=== PATIENT | male | born 1940 | race Caucasian/White ===

== ENCOUNTER → 2016-06-19 | Outpatient (CLI) | payer MEDICARE, OTHER ==
--- NOTE | 2016-06-19 19:02 | MRI ---
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 COMPARISON: None TECHNIQUE: Multiplanar, multi sequence MR images of the head are obtained with and without IV gadolinium contrast using standard imaging protocol. Due to imaging protocol was performed. FINDINGS: The midline structures are not displaced. Sulci are age appropriate. The lateral, third, and fourth ventricles are normal in size, shape, and anatomic positioning. Normal larsen-white differentiation is seen. Normal flow voids are seen in the major intracranial vessels including the dural venous sinuses. There is no evidence of mass, mass effect, hydrocephalus, or acute intracranial hemorrhage. No abnormal extra-axial fluid collections are seen. Mild to moderate mostly confluent and focal scattered areas of increased FLAIR/T2 signal are seen in the periventricular white matter and white matter and centrum semiovale. No diffusion-weighted signal abnormalities are identified. Gradient echo images show no abnormal signal. There is a large heterogeneously enhancing mass in the pituitary fossa measuring 16 mm AP by 28 mm transverse by 11 mm craniocaudal. The pituitary stalk is slightly deviated towards the right. This mass does not obviously contact or displace the optic chiasm or optic nerves. The mass does extend into the cavernous sinus left greater than right. The mass appears somewhat bilobed. Focus of increased signal on T1-weighted sequences in the anterior inferior aspect of the mass could represent displaced neurohypophysis. There is irregular bony thickening of the sphenoid sinus that appears to contain mostly enhancing mucosal tissue and near complete opacification. This likely represents postoperative changes. There is mucosal thickening in most of the ethmoid air cells and right maxillary sinus with evidence of previous surgery to the medial wall of the right maxillary sinus. The visualized orbits and mastoid air cells are unremarkable. IMPRESSION: Postsurgical changes to the sphenoid sinus are seen consistent with patient's history of previous pituitary tumor resection. There is a heterogeneous T2 signal and heterogeneously enhancing mass in the pituitary fossa extending into the cavernous sinuses left greater than right that has the appearance of a pituitary macroadenoma. Recommend correlation with any previous imaging studies if available to determine degree of interval change if any. No involvement of the optic chiasm or optic nerves is appreciated. Subacute chronic sinus disease in the ethmoid and right maxillary sinus are seen. Electronically signed by: Gio Case MD 06/19/2016 7:01 PM CDT
== END | disposition home or self-care (01) ==
LOC: LAB.O 08:46
PROVIDERS: ATTEND Family Medicine
DX: D35.2 Benign neoplasm of pituitary gland (principal)

== ENCOUNTER → 2016-07-10 | Outpatient (CLI) | payer MEDICARE, OTHER | END | disposition home or self-care (01) | LOC: GMAH 10:15 | PROVIDERS: ATTEND Family Medicine | DX: Z12.5 Encounter for screening for malignant neoplasm of prostate (principal); R53.82 Chronic fatigue, unspecified | CPT/HCPCS: 84443; 84550; G0103 ==

== ENCOUNTER → 2017-01-15 | Outpatient (CLI) | payer MEDICARE, OTHER | END | disposition home or self-care (01) | LOC: GMAH 18:02 | PROVIDERS: ATTEND Family Medicine | DX: M25.9 Joint disorder, unspecified (principal); E34.9 Endocrine disorder, unspecified ==

== ENCOUNTER → 2017-07-01 | Outpatient (CLI) | payer MEDICARE, OTHER | END | disposition home or self-care (01) | LOC: GMAH 12:44 | PROVIDERS: ATTEND Family Medicine | DX: Z12.5 Encounter for screening for malignant neoplasm of prostate (principal); R53.82 Chronic fatigue, unspecified; Z13.220 Encounter for screening for lipoid disorders | CPT/HCPCS: 84443; 84550; G0103 ==

== ENCOUNTER → 2018-07-08 | Outpatient (CLI) | payer MEDICARE, OTHER | LOC: GMAH 11:51 | PROVIDERS: ATTEND Family Medicine | DX: Z13.6 Encounter for screening for cardiovascular disorders (principal); Z12.5 Encounter for screening for malignant neoplasm of prostate | CPT/HCPCS: 84443; 84550; G0103 ==

== ENCOUNTER → 2018-07-28 | Outpatient (CLI) | payer MEDICARE, OTHER ==
--- NOTE | 2018-07-29 11:40 | MRI ---
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 TECHNIQUE: Multiplanar multi sequence images of the brain were obtained with and without gadolinium contrast. FINDINGS: No diffusion restriction. There is a fairly uniformly enhancing sellar mass extending into the suprasellar cistern measuring 2.8 cm transverse by 1.9 cm AP by 1.4 cm craniocaudal consistent with recurrent macroadenoma. Mild rightward deviation of the pituitary infundibulum. The optic chiasm is unremarkable. The mass abuts but does not encase the internal carotid artery cavernous segments bilaterally. The corpus callosum and other midline structures are otherwise unremarkable. The ventricles are nondilated. No extra-axial fluid collections. The internal auditory canals and cerebellopontine angles are unremarkable. No posterior fossa lesion. Small areas of increased T2/FLAIR signal involve the periventricular and subcortical white matter in both cerebral hemispheres, nonspecific but likely related to chronic ischemic microvascular disease. No cortical infarct or intracranial mass. Postoperative changes and mild mucoperiosteal thickening in the maxillary sinuses bilaterally. No calvarial lesion. 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 Rightward deviation of the optic chiasm and abutment of the cavernous segments of the ICAs bilaterally without vascular encasement. Electronically signed by: Scottie Reyez MD 07/29/2018 11:38 AM CDT
== END ==
LOC: MRI 14:00
PROVIDERS: ATTEND Family Medicine
DX: D35.2 Benign neoplasm of pituitary gland (principal)

== ENCOUNTER 2018-10-17 12:36 | Emergency (ER) | payer MEDICARE, OTHER ==
[2018-10-17 13:14] VITALS: TEMP 97.3
--- NOTE | 2018-10-17 13:31 | ED.PDOC ---
History of Present Illness - General Chief Complaint: Trauma Stated Complaint: Pt fell and punctured his right leg/calf Time Seen by Provider: 10/17/18 13:12 Source: patient Exam Limitations: no limitations - History of Present Illness Initial Comments: Jonatan David 77 y/o male stated that he was repairing his porch then he tripped on a 2 x 2 wood fell on the bushes and right leg got impaled by the trimmed light on the right leg then noted bleeding.His Tdap immunization UTD-3 years ago.Denies pain on the head,neck,chest,abdomen,hips/pelvis. Occurred: just prior to arrival Severity: moderate Pain Location: lower extremity - right leg Method of Injury: fall Improving Factors: rest Worsening Factors: movement Loss of Consciousness: no loss of consciousness Associated Symptoms (Fall): other - pain right leg Allergies/Adverse Reactions: Allergies Codeine Allergy (Verified 10/17/18 13:14) Metronidazole [From Flagyl] Allergy (Verified 10/17/18 13:14) Tramadol Allergy (Verified 10/17/18 13:14) Home Medications: Ambulatory Orders Misc Natural Hmg Coa Reductase [Cholestin] 2 cap PO DAILY 03/08/16 Shrub [place]-3 Fatty Acids [[place] 3] 1 cap PO DAILY 03/08/16 Omeprazole [PriLOSEC Cap] 20 mg PO DAILY 03/08/16 Probiotic Product [Probiotic] 1 tab PO DAILY 03/08/16 Sertraline HCl [Zoloft] 50 mg PO DAILY 03/08/16 Vitamins A & D [Vitamin A & D] 1 tab PO DAILY 03/08/16 Clindamycin HCl 300 mg PO TID 10 Days #60 cap 10/17/18 Turmeric (Curcuma Longa) [Curcumin 95] 1,300 mg PO DAILY 10/17/18 Review of Systems - Review of Systems Skin: States: see HPI, other - wound All other Systems: Reviewed and Negative, No Change from Baseline Past Medical History (General) - Patient Medical History Hx Stroke: No Hx of COPD: No Hx Cardiac Disorders: No Hx Congestive Heart Failure: No Hx Hypertension: No Hx Diabetes: No Hx Gastroesophageal Reflux: Yes Hx Cancer: Yes - Pituitary Hx MRSA: No Surgical History: cancer surgery, other - resection pituitary adenoma,hernia repair - Vaccination History Hx Tetanus, Diphtheria Vaccination: Yes Hx Influenza Vaccination: Yes Hx Pneumococcal Vaccination: Yes Immunizations Up to Date: No - Social History Hx Tobacco Use: Yes Hx Chewing Tobacco Use: Yes Hx Alcohol Use: No Hx Substance Use: No Hx Substance Use Treatment: No Hx Depression: No - Female History Patient is a Female of Child Bearing Age (10 -59 yrs old): No Patient : No Family Medical History - Family History Father Family History: No Known Living Status: Hx Family Asthma: Yes - copd Physical Exam - Physical Exam General Appearance: Alert, Comfortable, No apparent distress Head Injury: no evidence of injury Eye Exam: bilateral normal ENT Exam: hearing grossly normal, no evidence of ENT injury Neck Exam: non-tender, full range of motion, normal alignment, normal inspection Cardiovascular/Respiratory: regular rate, rhythm, no M/R/G, normal peripheral pulses, normal breath sounds Gastrointestinal/Abdominal: non tender, soft Back Exam: no CVA tenderness, no vertebral tenderness Extremity Exam: normal range of motion, non-tender, other - punctured wound middle third right lower extremity,slight bleeding noted Neurologic: alert, oriented x 3 Skin Exam: normal color, warm/dry - [place] Coma Score Best Eye Response ([place]): (4) open spontaneously Best Verbal Response ([place]): (5) oriented Best Motor Response ([place]): (6) obeys commands Della Total: 15 Departure - Departure Clinical Impression: Puncture wound of leg not thigh, right Qualifiers: Encounter type: initial encounter Qualified Code(s): S81.831A - Puncture wound without foreign body, right lower leg, initial encounter Time of Disposition: 13:54 Disposition: Discharge to Home or Self Care Condition: Fair Departure Forms: ED Discharge - Pt. Copy, Patient Portal Self Enrollment Instructions: Wound Care (DC), Wound Infection Referrals: Eros Anaya MD [Primary Care Provider] - 1-2 Weeks Prescriptions: Clindamycin HCl 300 mg PO TID 10 Days #60 cap Home Medications: Ambulatory Orders Misc Natural Hmg Coa Reductase [Cholestin] 2 cap PO DAILY 03/08/16 Shrub Oak-3 Fatty Acids [[place]rub [place] 3] 1 cap PO DAILY 03/08/16 Omeprazole [PriLOSEC Cap] 20 mg PO DAILY 03/08/16 Probiotic Product [Probiotic] 1 tab PO DAILY 03/08/16 Sertraline HCl [Zoloft] 50 mg PO DAILY 03/08/16 Vitamins A & D [Vitamin A & D] 1 tab PO DAILY 12/16/16 Clindamycin HCl 300 mg PO TID 10 Days #60 cap 10/17/18 Turmeric (Curcuma Longa) [Curcumin 95] 1,300 mg PO DAILY 10/17/18 Additional Instructions: Return to Emergency Room as needed;Elevate right leg at bedtime 20 degrees for one week;Follow up with primary Md 20 October 2018 for recheck of wound Continue with all home medications
[2018-10-17] MEDS ORDERED: NEOMYCIN-BACITRACIN-POLYMYXIN 0.9 GM UD TOP ONE ×2 (13:35→14:46)
[2018-10-17] MEDS: HYDROcodone 10MG/APAP 325MG 1 EA TAB PO ONE (13:56)
[2018-10-17] MEDS: CLINDAMYCIN PHOSPHATE 150 MG/ML VIAL IM ONE (13:56)
[2018-10-17] MEDS: CLINDAMYCIN HCL CAP 150 MG CAP PO ONE (13:56)
--- NOTE | 2018-10-17 14:18 | RAD ---
EXAM DESCRIPTION: Tibia/Fibula,Right CLINICAL HISTORY: 77 years Male punctured wound COMPARISON: None TECHNIQUE: AP, lateral and oblique views of the tibia/fibula are obtained. FINDINGS: OSSEOUS: There is no evidence of acute fracture or osteolytic/osteoblastic lesions. The joint spaces are preserved. There is no evidence of degenerative osteophytosis or sclerosis. There is no evidence of marginal erosive changes to suggest an inflammatory arthritis. SOFT TISSUE: There is no significant soft tissue swelling or mass. Vascular calcifications are noted. No radiopaque foreign bodies. No evidence of a suprapatellar or ankle joint effusion. IMPRESSION: No acute osseous abnormalities. Remainder of findings as described above. Electronically signed by: Amy Reid MD 10/17/2018 2:16 PM CDT
[2018-10-17 14:57] VITALS: BP 163/103; O2SAT 99
== END 2018-10-17 14:35 | disposition home or self-care (01) ==
LOC: ER 12:36
DX: S81.831A Puncture wound without foreign body, right lower leg, initial encounter (principal); K21.9 Gastro-esophageal reflux disease without esophagitis; W01.198A Fall on same level from slipping, tripping and stumbling with subsequent striking against other object, initial encounter; Y93.89 Activity, other specified; Y92.89 Other specified places as the place of occurrence of the external cause; Z85.89 Personal history of malignant neoplasm of other organs and systems; Z87.891 Personal history of nicotine dependence; Z79.899 Other long term (current) drug therapy; Z88.5 Allergy status to narcotic agent; Z88.8 Allergy status to other drugs, medicaments and biological substances
CPT/HCPCS: 73590; J3490

== ENCOUNTER 2019-02-11 13:53 | Emergency (ER) | payer MEDICARE, OTHER ==
[2019-02-11] MEDS ORDERED: CYCLOBENZAPRINE HCL 5 MG TAB PO ONE (14:24)
[2019-02-11] MEDS ORDERED: KETOROLAC TROMETHAMINE INJ 30 MG/ML VIAL IM ONE (14:24)
[2019-02-11] MEDS ORDERED: predniSONE 20 MG TAB PO ONE (14:24)
[2019-02-11 14:50] VITALS: TEMP 98.2; O2SAT 98
--- NOTE | 2019-02-11 14:50 | RAD ---
EXAM DESCRIPTION: Lumbar Spine 3 Views CLINICAL HISTORY: 78 years Male, left low back pain with sciatica COMPARISON: None available. FINDINGS: The vertebral body heights are well-maintained with no acute compression deformity. Multilevel mild degenerative disc disease and facet arthropathy throughout the lumbar spine. No evidence of spondylolysis or spondylolisthesis. The visualized prevertebral and paravertebral soft tissues appear grossly unremarkable. 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 Electronically signed by: Radha Kuhn MD 02/11/2019 2:49 PM [facility]
--- NOTE | 2019-02-11 15:06 | ED.PDOC ---
History of Present Illness - General Chief Complaint: Back Pain or Injury Stated Complaint: back pain Time Seen by Provider: 02/11/19 14:07 Source: patient Exam Limitations: no limitations - History of Present Illness Initial Comments: the patient is a 78-year-old male presenting to the emergency room secondary to low back pain primarily on the left adjacent to L2-L4. He is now having a little bit of sciatica down his left leg. Symptoms started about48 hours ago. He has been doing some stretching at home along with some heatas well as some Motrin. He has had some chronic back pain before. Severity: moderate Improving Factors: nothing Worsening Factors: nothing Associated Symptoms: denies symptoms Allergies/Adverse Reactions: Allergies Codeine Allergy (Verified 02/11/19 14:50) Metronidazole [From Flagyl] Allergy (Verified 02/11/19 14:50) Tramadol Allergy (Verified 02/11/19 14:50) Home Medications: Ambulatory Orders Misc Natural Hmg Coa Reductase [Cholestin] 2 cap PO DAILY 03/08/16 Omeprazole [PriLOSEC Cap] 20 mg PO DAILY 03/08/16 Turmeric (Curcuma Longa) [Curcumin 95] 1,300 mg PO DAILY 10/17/18 Cholecalciferol [Vitamin D] 5,000 unit PO DAILY 02/11/19 Cyanocobalamin [B-12] 1,000 mcg PO DAILY 02/11/19 Cyclobenzaprine HCl [Flexeril] 10 mg PO TID PRN #20 tab 02/11/19 predniSONE [Prednisone] 20 mg PO DAILY #7 tab 02/11/19 Review of Systems - Review of Systems Constitutional: States: no symptoms reported EENTM: States: no symptoms reported Respiratory: States: no symptoms reported Cardiology: States: no symptoms reported Gastrointestinal/Abdominal: States: no symptoms reported Genitourinary: States: no symptoms reported Musculoskeletal: States: see HPI Skin: States: no symptoms reported Neurological: States: see HPI Endocrine: States: no symptoms reported All other Systems: No Change from Baseline Past Medical History (General) - Patient Medical History Hx Stroke: No Hx of COPD: No Hx Cardiac Disorders: No Hx Congestive Heart Failure: No Hx Hypertension: No Hx Diabetes: No Hx Gastroesophageal Reflux: Yes Hx Cancer: Yes - Pituitary Hx MRSA: No Surgical History: other - Vaccination History Hx Tetanus, Diphtheria Vaccination: Yes Hx Influenza Vaccination: Yes Hx Pneumococcal Vaccination: No - Social History Hx Tobacco Use: No Hx Chewing Tobacco Use: Yes Hx Alcohol Use: No Hx Substance Use: No Hx Substance Use Treatment: No Hx Depression: No - Female History Patient : No Family Medical History - Family History Father Family History: No Known Living Status: Hx Family Asthma: Yes - copd Physical Exam - Physical Exam General Appearance: Alert, Comfortable, No apparent distress Eye Exam: bilateral normal Ears, Nose, Throat: hearing grossly normal, normal ENT inspection Neck: full range of motion, supple Respiratory: no respiratory distress, no accessory muscle use Cardiovascular/Chest: normal peripheral pulses, no edema, other - regular rate Peripheral Pulses: radial,right: 2+, radial,left: 2+, dorsalis pedis,right: 2+, dorsalis pedis,left: 2+ Gastrointestinal/Abdominal: non tender, soft Rectal Exam: deferred Back Exam: no vertebral tenderness, muscle spasm, other - see history of present illness Extremity: normal range of motion, non-tender, normal inspection, no pedal edema, normal capillary refill Neurologic: air sampler II-XII nml as tested, alert, normal mood/affect, oriented x 3, other - mild sciatica down the left leg. No objective sensory loss. no incontinence. Skin Exam: normal color Comments: Vital Signs - 24 hr 02/11/19 14:00 Temperature 98.2 F Pulse Rate [ 78 pulse ox] Respiratory 20 Rate Blood Pressure 198/98 [arm] O2 Sat by Pulse 98 Oximetry Progress - Progress Progress: 02/11/19 15:07 the patient is a 78-year-old male presenting to emergency room secondary to low back pain on the left that started a couple days ago. X-ray is reassuring. The patient is being dosed with Toradol, prednisone and Flexeril here today. He'll be written for prednisone and Flexeril for the next 5 days. He needs to do stretching exercises for his low back. He should also obtain an inverter to use to help decompress his spine. Topical heat may also help. Exercises and strengthening of the muscles in front of the spine such as with rowing, bicycling or swimming may also help reduce chronic pain. Motrin or Aleve can be used additionally if needed with food. ER warnings are given for any acute worsening. Follow back up with primary care doctor in a couple of days. he can also visited a chiropractor in a day or 2 if he wishes. [phone] - Results/Orders Results/Orders: x-ray of the lumbar spine shows no acute pathology. He does have chronic degenerative changes. Departure - Departure Clinical Impression: Low back pain with sciatica Qualifiers: Chronicity: acute Back pain laterality: left Sciatica laterality: sciatica of left side Qualified Code(s): M54.42 - Lumbago with sciatica, left side Disposition: Discharge to Home or Self Care Condition: Fair Departure Forms: ED Discharge - Pt. Copy, Patient Portal Self Enrollment Instructions: DI for Back Pain With Sciatica Diet: regular diet Activity: increase activity as tolerated Referrals: Eros Anaya MD [Primary Care Provider] - 1-2 Days Prescriptions: Cyclobenzaprine HCl [Flexeril] 10 mg PO TID PRN #20 tab PRN Reason: Muscle Spasms predniSONE [Prednisone] 20 mg PO DAILY #7 tab Home Medications: Ambulatory Orders Misc Natural Hmg Coa Reductase [Cholestin] 2 cap PO DAILY 03/08/16 Omeprazole [PriLOSEC Cap] 20 mg PO DAILY 03/08/16 Turmeric (Curcuma Longa) [Curcumin 95] 1,300 mg PO DAILY 10/17/18 Cholecalciferol [Vitamin D] 5,000 unit PO DAILY 02/11/19 Cyanocobalamin [B-12] 1,000 mcg PO DAILY 02/11/19 Cyclobenzaprine HCl [Flexeril] 10 mg PO TID PRN #20 tab 02/11/19 predniSONE [Prednisone] 20 mg PO DAILY #7 tab 02/11/19 Additional Instructions: the patient is a 78-year-old male presenting to emergency room secondary to low back pain on the left that started a couple days ago. X-ray is reassuring. The patient is being dosed with Toradol, prednisone and Flexeril here today. He'll be written for prednisone and Flexeril for the next 5 days. He needs to do stretching exercises for his low back. He should also obtain an inverter to use to help decompress his spine. Topical heat may also help. Exercises and strengthening of the muscles in front of the spine such as with rowing, bicycling or swimming may also help reduce chronic pain. Motrin or Aleve can be used additionally if needed with food. ER warnings are given for any acute worsening. Follow back up with primary care doctor in a couple of days. he can also visited a chiropractor in a day or 2 if he wishes.
[2019-02-11 15:34] VITALS: BP 193/107
== END 2019-02-11 15:30 | disposition home or self-care (01) ==
LOC: ER 13:53
DX: M54.42 Lumbago with sciatica, left side (principal); K21.9 Gastro-esophageal reflux disease without esophagitis; Z87.891 Personal history of nicotine dependence; Z85.89 Personal history of malignant neoplasm of other organs and systems
CPT/HCPCS: 72100; J1885; J7512

== ENCOUNTER → 2019-02-12 | Outpatient (CLI) | payer MEDICARE, OTHER ==
--- NOTE | 2019-02-14 12:02 | US ---
EXAM DESCRIPTION: Venous,Lower Extremity RT: ULTRASOUND. CLINICAL HISTORY: LOCALIZED SWELLING RIGHT LOWER LIMB COMPARISON: None Available. TECHNIQUE: Guidry-scale and doppler sonographic evaluation of the deep venous system of the right lower extremity. FINDINGS: Doppler evaluation shows normal color flow and normal phasicity and augmentation of the right common femoral vein, femoral vein, popliteal vein, greater saphenous vein, junction with the CFV. Also normal color flow and normal phasicity and augmentation of the peroneal, and posterior tibial vein. The right lower extremity deep veins were completely compressible; normal occlusion with transducer pressure. Guidry-scale survey showed no echogenic thrombus within these veins. IMPRESSION: 1. Duplex ultrasound evaluation of the right lower extremity deep venous system showing no evidence of thrombosis. Electronically signed by: Ridge Min MD 02/14/2019 12:01 PM [facility]
== END ==
LOC: US 14:30
PROVIDERS: ATTEND Family Medicine
DX: R22.42 Localized swelling, mass and lump, left lower limb (principal)

== ENCOUNTER → 2019-02-15 | Outpatient (CLI) | payer MEDICARE, OTHER ==
--- NOTE | 2019-02-15 17:49 | US ---
EXAM DESCRIPTION: Extremity,Lower RT Arteries: Ultrasound. CLINICAL HISTORY: PVD COMPARISON: Duplex venous evaluation of the deep lower extremity veins. TECHNIQUE: Doppler evaluation of the right lower extremity arterial flow waveforms and velocities. FINDINGS: Arterial waveforms in the right lower extremity are triphasic from the right common femoral artery through the right dorsalis pedis artery.. Comments: None. IMPRESSION: Doppler ultrasound evaluation of the right lower extremity arterial system showing no evidence of significant atherosclerotic occlusive disease. Electronically signed by: Ridge Min MD 02/15/2019 5:48 PM [employer]
== END ==
LOC: US 10:00
PROVIDERS: ATTEND Family Medicine
DX: I73.9 Peripheral vascular disease, unspecified (principal)

== ENCOUNTER → 2019-07-12 | Outpatient (CLI) | payer MEDICARE, OTHER | LOC: GMA MATASK 11:35 | PROVIDERS: ATTEND Family Medicine | DX: Z12.5 Encounter for screening for malignant neoplasm of prostate (principal); I10 Essential (primary) hypertension | CPT/HCPCS: 84443; 84550; G0103 ==

== ENCOUNTER 2019-10-07 04:24 | Day surgery (SDC) | payer MEDICARE, OTHER ==
[2019-10-07] MEDS ORDERED: LACTATED RINGERS 1,000 ML ONE (06:36)
--- NOTE | 2019-10-07 09:12 | OP ---
DATE OF PROCEDURE: 10/07/19 PREOPERATIVE DIAGNOSIS: 1. Screening colonoscopy. PROCEDURE: 1. Colonoscopy. SURGEON: Shawn Lorenz MD ANESTHESIA: General. 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 COMPLICATIONS: None. ESTIMATED BLOOD LOSS: Minimal. SPECIMEN: Random biopsy. PLAN: Followup and discuss further options. INDICATION: As stated. PROCEDURE: General anesthesia was induced in the lateral position. Digital rectal exam was normal. The colonoscope was introduced. The rectum appeared normal. When we got up to about 25 cm, there was a turn and very difficult to traverse. As we got into and through, the colon would not distend adequately, but we did notice at least three frond-like projections. With multiple manipulations because of the lack of distention, we did get a random biopsy that I think was the top of one of the polyps, but definitely not confidently diagnostic as there were other suspicious lesions in that area and they could only be seen momentarily at times and, again, unable after to multiple careful attempts to traverse this area and get passed. I did not feel that using the EGD scope would be helpful at this point. The colonoscopy was completed. Withdrawal showed no lesions in the rectum. He will come to the office and we will discuss, I will likely proceed with a CT scan or an enema to examine that area and possibly referral to GI with a pediatric scope. However, if the CT scan is revealing, we will make decisions based on that. #[id number] MTDD
[2019-10-07] MEDS ORDERED: PROPOFOL 200 MG/20 ML VIAL IV ONE (10:00)
[2019-10-07] MEDS ORDERED: LIDOCAINE 1% 10 ML VIAL INJ ONE (10:00)
[2019-10-07 10:17] VITALS: BP 165/95; TEMP 97.6; O2SAT 99
== END 2019-10-07 10:10 | disposition home or self-care (01) ==
LOC: AMB 04:24
PROVIDERS: ATTEND Surgery
DX: Z12.11 Encounter for screening for malignant neoplasm of colon (principal); K63.5 Polyp of colon; K21.9 Gastro-esophageal reflux disease without esophagitis; Z79.899 Other long term (current) drug therapy; Z88.1 Allergy status to other antibiotic agents; Z88.5 Allergy status to narcotic agent
CPT/HCPCS: 00812; 45380; 88305; J3490; J7120

== ENCOUNTER → 2019-10-13 | Outpatient (CLI) | payer MEDICARE, OTHER ==
--- NOTE | 2019-10-13 11:52 | CT ---
EXAM DESCRIPTION: CT ABDOMEN AND PELVIS WITH CONTRAST CLINICAL HISTORY: SIGMOID OBSTRUCTION COMPARISON: Previous CT abdomen and pelvis June 15, 2014 TECHNIQUE: CT of the abdomen and pelvis are performed during IV bolus administration of routine adult dose of nonionic iodinated IV contrast. No oral contrast. FINDINGS: In the lower chest, the lung bases are clear except for punctate granuloma in the right lower lobe unchanged from previous and linear scarring in the inferior lingula also unchanged. Heart size is normal. CT abdomen Cyst in the left lobe of the liver appears benign measuring 2.6 cm. 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 On the previous study, no contrast given and there is no diagnostic abnormality in the pancreas previous exam. This could be further evaluated with MRI or endoscopic sonography or followed with CT (high-resolution thin slice CT imaging with arterial phase contrast enhancement) to see if there is any change management director time. The appearance is not suggestive of pancreatic carcinoma which is usually lower in density than the adjacent enhanced pancreatic glandular tissue. 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 This was present on the previous study and measured 9 mm at that time as well. Small cyst in the upper posterior left kidney measures 1.6 cm. A left renal stone in the upper posterior calyx measures 4 mm. Exit phytic cortical cyst of the mid lateral left kidney measures 1.6 cm. No ureteral stones or hydronephrosis. Otherwise the liver, spleen, gallbladder, adrenal glands, stomach and kidneys are unremarkable in appearance. No inflammation around the pancreas. No renal stones or hydronephrosis. No small bowel dilatation to suggest obstruction. No free air or free fluid. CT pelvis Appendix appears normal. No inflammation around the cecum or terminal ileum. Abnormal sigmoid colon is seen with focally thickened wall with enhanced dense appearance suggesting primary sigmoid neoplasm. This measures 5.9 x 3.7 cm. This was not present on the previous study but there was abnormality through this area consistent with diverticulosis and mild diverticulitis with wall thickening but no focal mass. The present finding could represent chronic scarring from old diverticulitis but a primary malignant tumor is thought more likely. Minimal strandy increased density in the fat surrounding the abnormal area. The sigmoid colon appears somewhat shortened in this area compared to previous. No localized kelby enlargement to suggest local kelby metastases. Bladder and distal ureters are negative for stones. Prominent bladder wall thickness likely due to incomplete distention. Normal enhancement of pelvic vessels. No inguinal or lower pelvic adenopathy. Prominent prostate 4.2 cm in transverse dimension. Normal seminal vesicles. No pelvic or inguinal or femoral adenopathy. Facet degenerative changes in the lower L-spine. Bone window images are negative for fracture or lytic lesion. Coronal and sagittal reformatted images confirm the findings. On the sagittal images, the sigmoid colon has an appearance more consistent with chronic scarring from repeated bouts of diverticulitis. Fat plane between the abnormal sigmoid colon in the posterior superior bladder appears preserved arguing against fistulization. No gas in the bladder lumen. The abnormal segment of sigmoid colon is more masslike on the coronal images. The possibility of superimposed acute inflammatory changes in the surrounding fat cannot be excluded versus malignant infiltration. Moderate amount of fecal material in the colon proximal to this area without pathologic colonic dilatation. Coronal images show small enhancing nodular density in the pancreatic head (coronal image 62, series 602 with questionable rim-enhancing nodule in the tail of the pancreas (coronal image 68, series 602) measuring 1.2 cm. These indeterminate foci can be followed. On the coronal images, bilateral renal calculi are visible including upper right calyceal stone 4 mm and 2 adjacent stones in the upper left renal calyx measuring 3 mm and 4 mm. IMPRESSION: Sigmoid colonic wall thickening/mass 5.9 x 3.7 cm with differential considerations including primary colon carcinoma or chronic diverticulitis. Bilateral renal stones without obstructive uropathy. 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 Small enhancing foci in the head and tail of the pancreas. Follow-up recommended as discussed above. Left hepatic cyst. This exam was performed according to our departmental dose-optimization program, which includes automated exposure control, adjustment of the mA and/or kV according to patient size and/or use of iterative reconstruction technique. Total DLP equals 1043.15 mGycm. Electronically signed by: Daniel Albarran MD 10/13/2019 11:50 AM CDT
== END ==
LOC: CT 07:58
PROVIDERS: ATTEND Surgery
DX: Z01.812 Encounter for preprocedural laboratory examination (principal); K56.690 Other partial intestinal obstruction; K63.9 Disease of intestine, unspecified; I72.2 Aneurysm of renal artery; K76.89 Other specified diseases of liver; K86.9 Disease of pancreas, unspecified; N20.0 Calculus of kidney

== ENCOUNTER → 2019-10-28 | Outpatient (CLI) | payer MEDICARE, OTHER ==
--- NOTE | 2019-10-28 17:39 | RAD ---
EXAM DESCRIPTION: Barium Enema w/ Gastografin CLINICAL HISTORY: MASS OF COLON COMPARISON: CT scan of the abdomen and pelvis 12 of October. TECHNIQUE: Fluoroscopy performed by Dr. Min. Patient supine on fluoroscopic table. Batter Mixer images were obtained. Barium enema tip inserted in rectum. Gastrografin contrast mixed one-to-one with water was introduced into the rectum in a retrograde manner under fluoroscopic visualization. Multiple fluoroscopic guided images. The enema tip was removed and patient evacuated. Additional digital radiographic images were obtained. The patient tolerated the procedure well, with no immediate complications. Fluoroscopy time was 2.4 minutes.. DAP 20.1477 mGy per centimeter squared. Fluoroscopic images recorded: 17 . Conventional abdominal images recorded: 8 including vp software engineering image FINDINGS: Preliminary vp software engineering film shows minimal spondylosis at the L5-S1 level. Heterogeneous bone marrow density decreased. Gas in the small bowel and colon with fluid and gas in the distal small bowel. Multiple diverticula are noted in the sigmoid with some spasm. Just proximal to the final flexure of the sigmoid before joining the rectum, is a circumferential mass with concave images and significantly narrowed and irregular lumen. 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 Contrast was able to pass through this mass and narrowed lumen with the entire colon visualized. Reflux into the terminal ileum and appendix were also visualized. Diverticula are noted in the ascending colon, not as numerous as the sigmoid. No other extraluminal masses are noted. No contrast extravasation. No obstruction. IMPRESSION: 1. 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 No proximal obstruction. No other mucosal or wall lesions seen in the colon. 2. Diverticulosis more prominent distal than proximal. Terminal ileum reflux and appendix were visualized. No contrast extravasation. CRITICAL COMMUNICATION: The critical value was communicated by text message from Dr. Min at 1005 hours, to Dr. Shawn Lorenz with text acknowledgment by Dr. Lorenz at approximately 1008 hours, on October 28, 2019.. Electronically signed by: Ridge Min MD 10/28/2019 5:37 PM CDT
== END ==
LOC: LAB.O 07:41
PROVIDERS: ATTEND Surgery
DX: R19.09 Other intra-abdominal and pelvic swelling, mass and lump (principal); K57.30 Diverticulosis of large intestine without perforation or abscess without bleeding

== ENCOUNTER → 2019-11-08 | Outpatient (CLI) | payer MEDICARE, OTHER ==
--- NOTE | 2019-11-08 16:29 | RAD ---
EXAM DESCRIPTION: Abdomen 1 View CLINICAL HISTORY: ABDOMINAL PAIN FINDINGS/ IMPRESSION: Normal bowel gas pattern No organomegaly or obvious abdominal mass lesion. Renal vascular calcification seen on the right. No other pathologic calcification Electronically signed by: Mir Soares MD 11/08/2019 4:28 PM CDT
== END ==
LOC: RAD 10:49
PROVIDERS: ATTEND Surgery
DX: R10.9 Unspecified abdominal pain (principal); I70.1 Atherosclerosis of renal artery

== ENCOUNTER 2019-11-29 12:41 | Inpatient (IN) | payer MEDICARE, OTHER ==
[2019-11-29] MEDS ORDERED: ONDANSETRON ODT 8 MG TAB SL ONE (13:20)
[2019-11-29] MEDS ORDERED: PIPERACILLIN/TAZOBACTAM 3.375 GM in SODIUM CHLORIDE 0.9% 100ML 100 ML IVPB ONE (14:06)
--- NOTE | 2019-11-29 15:44 | CT ---
EXAMINATION: CT of the abdomen and pelvis with IV contrast INDICATION: Status post colectomy. Nausea and vomiting. COMPARISON: 10/13/2019 TECHNIQUE: Axial CT scan of the abdomen and pelvis was obtained after the uneventful administration of intravenous contrast. Coronal and sagittal reformats were provided. This CT exam was performed using one or more of the following dose reduction techniques: Automated exposure control, Adjustment of the mA and/or kV according to patient size, Use of iterative reconstruction technique FINDINGS: VISUALIZED LOWER THORAX: Small right pleural effusion. There are airspace opacities present at both lung bases. Heart is upper limits in size. Coronary artery calcifications are present. LIVER: There are cysts present in the left hepatic lobe measuring up to 2.5 cm. This could either represent 2 adjacent cysts or 1 larger cyst GALLBLADDER AND CBD: Normal. PANCREAS: Normal. SPLEEN: Granulomas within the spleen. ADRENAL GLANDS: Normal. KIDNEYS AND URETERS: 1.5 cm left renal cyst. There is a 3 mm nonobstructing left renal calculus. There is an additional left renal cyst which is exophytic and measures 1.8 cm. There is no hydronephrosis or hydroureter. URINARY BLADDER: King catheter is present within the urinary bladder. There is air also noted within the urinary bladder. The bladder is decompressed. PELVIS: Prostate measures up to 4.4 cm. No free fluid in the pelvis. BOWEL: Few scattered diverticula noted throughout the colon. There is contrast within the colon. There are partial colectomy changes in the region of the sigmoid colon with some residual thickening present. There is a primary anastomosis noted. About the primary anastomosis, there is a fluid collection in the right lower quadrant of the abdomen measuring 9.5 x 7.7 x 8.9 cm (transverse, anterior posterior, and cranial caudal). This is of mixed attenuation. Appendix not visualized. No inflammatory changes in the right lower quadrant to suggest acute appendicitis. Oral contrast opacifies multiple nondilated loops of small bowel. Tiny hiatus hernia. AORTA AND VASCULATURE: Scattered atheromatous changes throughout the abdominal aorta. No aneurysm. LYMPH NODES: No pathologically enlarged retroperitoneal, mesenteric, or pelvic lymph nodes. ABDOMINAL WALL: Midline postsurgical changes are present with surgical annabel. MESENTERY/ASCITES: Normal. OSSEOUS STRUCTURES: Mild multilevel degenerative changes noted throughout the visualized spine. Mild degenerative changes of the bilateral hips. OTHER: N/A IMPRESSION: Large fluid collection noted in the pelvis adjacent to the anastomosis in the sigmoid colon. This is highly suspicious for an anastomotic leak. This measures up to 9.5 cm in maximum dimension Electronically signed by: Batool Breen MD 11/29/2019 3:42 PM CDT
[2019-11-29] MEDS ORDERED: PROMETHAZINE HCL INJ 25 MG/ML VIAL ONE (16:10)
[2019-11-29] MEDS ORDERED: SODIUM CHLORIDE 0.9% 50ML 50 ML ONE (16:10)
[2019-11-29] MEDS ORDERED: SODIUM CHLORIDE 0.9% 1000ML 1,000 ML IVS ONE (16:21)
--- NOTE | 2019-11-29 16:39 | ED.PDOC ---
History of Present Illness - General Chief Complaint: Post Op Problems Stated Complaint: unable to eat/drink, lethargic, post op 10 days Time Seen by Provider: 11/29/19 12:52 Source: patient Exam Limitations: no limitations - History of Present Illness Initial Comments: The patient is a 79-year-old male presented emergency room secondary to increased abdominal pain along with nausea and vomiting over the past for 5 days. The patient apparently had a bowel resection approximately 10 days ago here. The patient has been having a bowel movement. He has been passing gas. Abdominal pain is primarily over the lower abdomen. He does have a King catheter and secondary to complications from the previous surgery. He does not know if he is had any fevers. He was actually seen here in the emergency room last night and felt significantly better after a liter of fluids and some nausea medications. He elected to go home at that point and follow-up with his surgeon in a day or 2. The patient however continued to worsen after he got home so he showed back up here today. His general surgeon was contacted and had recommended imaging of the abdomen. Timing/Duration: constant, getting worse Severity: severe Improving Factors: immobilization Worsening Factors: eating, movement Associated Symptoms: loss of appetite, malaise, nausea/vomiting Allergies/Adverse Reactions: Allergies Codeine Allergy (Verified 11/29/19 13:08) Levofloxacin [From Levaquin] Allergy (Verified 11/29/19 13:08) Metronidazole [From Flagyl] Allergy (Verified 11/29/19 13:08) Tramadol Allergy (Verified 11/29/19 13:08) Home Medications: Ambulatory Orders Omeprazole [Prilosec Cap] 20 mg PO DAILY 03/08/16 Misc Natural Products [Cholesterol Relief] 1 cap PO DAILY 10/05/19 Lisinopril 10 mg PO DAILY 11/18/19 Temazepam [Restoril] 15 mg PO BEDTIME PRN #7 cap 11/25/19 Ondansetron [Ondansetron Odt] 4 mg PO Q6H #20 tab 11/29/19 Review of Systems - Review of Systems Constitutional: States: diaphoresis, malaise EENTM: States: no symptoms reported Respiratory: States: no symptoms reported Cardiology: States: no symptoms reported Gastrointestinal/Abdominal: States: abdominal pain, nausea, vomiting Genitourinary: States: no symptoms reported Musculoskeletal: States: no symptoms reported Skin: States: no symptoms reported Neurological: States: no symptoms reported Endocrine: States: no symptoms reported, excessive sweating All other Systems: No Change from Baseline Past Medical History (General) - Patient Medical History Hx Seizures: No Hx Stroke: No Hx Dementia: No Hx Asthma: No Hx of COPD: No Hx Cardiac Disorders: No Hx Congestive Heart Failure: No Hx Pacemaker: No Hx Hypertension: Yes Hx Thyroid Disease: No Hx Diabetes: No Hx Gastroesophageal Reflux: No Hx Renal Disease: No Hx Cancer: No Hx of HIV: No Hx Hepatitis C: No Hx MRSA: No - Vaccination History Hx Tetanus, Diphtheria Vaccination: Yes Hx Influenza Vaccination: Yes Hx Pneumococcal Vaccination: Yes - Social History Hx Tobacco Use: No Hx Chewing Tobacco Use: No Hx Alcohol Use: No Hx Substance Use: No Hx Substance Use Treatment: No Hx Depression: No Hx Physical Abuse: No Hx Emotional Abuse: No Hx Suspected Abuse: No - Activities of Daily Living Hospice Agency (if applicable):: None - Female History Patient is a Female of Child Bearing Age (10 -59 yrs old): No Patient : No Family Medical History - Family History Father Family History: No Known Living Status: Hx Family Asthma: Yes - copd Physical Exam - Physical Exam General Appearance: Alert, Ill Appearing Eye Exam: bilateral normal Ears, Nose, Throat: hearing grossly normal, normal ENT inspection Neck: non-tender, supple Respiratory: lungs clear, normal breath sounds, no respiratory distress, no accessory muscle use Cardiovascular/Chest: normal peripheral pulses, regular rate, rhythm - Occasional PVC on telemetry. Borderline sinus tachycardia, no edema Peripheral Pulses: radial,right: 2+, radial,left: 2+, dorsalis pedis,right: 2+, dorsalis pedis,left: 2+ Gastrointestinal/Abdominal: other - No evidence of dehiscence from surgical wounds. There is mild erythema surrounding several of the wounds. The patient does have significant guarding. Rectal Exam: deferred Back Exam: no vertebral tenderness Extremity: non-tender, no pedal edema, normal capillary refill Neurologic: manager programming II-XII nml as tested, alert, normal mood/affect, oriented x 3 Skin Exam: normal color - Mild erythema surrounding some of the abdominal wounds but not marked Comments: Vital Signs - 24 hr 11/29/19 11/29/19 11/29/19 12:55 13:11 13:42 Temperature 98.1 F 98.1 F Pulse Rate 115 H 111 H Pulse Rate [ 115 H 115 H 111 H brachial] Respiratory 20 20 20 Rate Blood Pressure 140/84 119/81 [Left Arm] O2 Sat by Pulse 95 93 L Oximetry 11/29/19 11/29/19 14:00 15:00 Temperature 98.1 F Pulse Rate 108 H Pulse Rate [ 108 H 105 H brachial] Respiratory 20 16 Rate Blood Pressure 133/78 130/84 [Left Arm] O2 Sat by Pulse 95 92 L Oximetry Progress - Progress Progress: 11/29/19 16:41 The patient is a 79-year-old male presented emergency room secondary to abdominal pain with nausea and vomiting approximately 10 days after a bowel resection. The patient does appear to have a significant urinary tract infect ion based on urinalysis and has been started on Zosyn. Additionally CT scan of the abdomen pelvis shows a 9.5 cm fluid collection in the right lower quadrant adjacent to the surgical anastomosis that is most consistent with an anastomotic leak. Blood cultures have been done. The patient is receiving a liter of IV fluids as he is not been able to hold down much over the past few days. He is also receiving a dose of Phenergan for nausea. The patient is being made n.p.o. His general surgeon is coming up to evaluate him. 11/29/19 17:26 The patient will be admitted for further surgical intervention. - Results/Orders Results/Orders: CT scan of the abdomen pelvis shows what appears to be a fluid collection is most likely an anastomotic leak from the bowel resection site at approximately 9.5 cm in diameter at its greatest. Laboratory Tests 11/29/19 11/29/19 11/29/19 13:41 13:41 13:41 WBC 14.5 H RBC 3.57 L Hgb 10.0 L Hct 30.0 L MCV 84.0 MCH 28.0 MCHC 33.3 RDW 15.2 H Plt Count 385 MPV 7.5 Absolute Neuts (auto) 12.40 H Absolute Lymphs (auto) 0.70 L Absolute Monos (auto) 1.10 H Absolute Eos (auto) 0.10 Absolute Basos (auto) 0.10 Neutrophils % 85.6 H Lymphocytes % 4.8 L Monocytes % 7.7 Eosinophils % 0.9 L Basophils % 1.0 Sodium 135 Potassium 4.0 Chloride 103 Carbon Dioxide 23 Anion Gap 13.0 BUN 24 H Creatinine 1.26 BUN/Creatinine Ratio 19.0 Random Glucose 94 Serum Osmolality 273.9 L Lactic Acid 1.0 Calcium 8.2 L Magnesium 1.9 Total Bilirubin 1.8 H D AST 36 ALT 28 Alkaline Phosphatase 69 Creatine Kinase 33 L CK-MB (CK-2) 0.9 CK-MB (CK-2) % Not Reportable Troponin I < 0.02 B-Natriuretic Peptide 90.4 Serum Total Protein 6.0 L Albumin 2.8 L Globulin 3.2 Albumin/Globulin Ratio 0.9 L Amylase 82 Lipase 70 H Urine Color Urine Appearance Urine pH Ur Specific [place] Urine Protein Urine Glucose (UA) Urine Ketones Urine Blood Urine Nitrite Urine Bilirubin Urine Urobilinogen Ur Leukocyte Esterase Urine RBC Urine WBC Ur Epithelial Cells Urine Bacteria 11/29/19 13:41 WBC RBC Hgb Hct MCV MCH MCHC RDW Plt Count MPV Absolute Neuts (auto) Absolute Lymphs (auto) Absolute Monos (auto) Absolute Eos (auto) Absolute Basos (auto) Neutrophils % Lymphocytes % Monocytes % Eosinophils % Basophils % Sodium Potassium Chloride Carbon Dioxide Anion Gap BUN Creatinine BUN/Creatinine Ratio Random Glucose Serum Osmolality Lactic Acid Calcium Magnesium Total Bilirubin AST ALT Alkaline Phosphatase Creatine Kinase CK-MB (CK-2) CK-MB (CK-2) % Troponin I B-Natriuretic Peptide Serum Total Protein Albumin Globulin Albumin/Globulin Ratio Amylase Lipase Urine Color Emilie Urine Appearance Cloudy Urine pH 5.5 Ur Specific [place] >= 1.030 Urine Protein 100 H Urine Glucose (UA) Negative Urine Ketones 40 H Urine Blood Moderate H Urine Nitrite Positive H Urine Bilirubin Small H Urine Urobilinogen >= 8.0 H Ur Leukocyte Esterase Small H Urine RBC Tntc H Urine WBC Tntc H Ur Epithelial Cells Obscured by wbc's Urine Bacteria 4+ H Departure - Departure Clinical Impression: Urinary tract infection associated with indwelling urethral catheter Qualifiers: Encounter type: initial encounter Qualified Code(s): T83.511A - Infection and inflammatory reaction due to indwelling urethral catheter, initial encounter; N39.0 - Urinary tract infection, site not specified Postoperative infection Qualifiers: Encounter type: initial encounter Disposition: Admit Patient Condition: Serious Departure Forms: ED Discharge - Pt. Copy, Patient Portal Self Enrollment Referrals: Eros Anaya MD [Primary Care Provider] - 1-2 Weeks Home Medications: Ambulatory Orders Omeprazole [Prilosec Cap] 20 mg PO DAILY 03/08/16 Misc Natural Products [Cholesterol Relief] 1 cap PO DAILY 10/05/19 Lisinopril 10 mg PO DAILY 11/18/19 Temazepam [Restoril] 15 mg PO BEDTIME PRN #7 cap 11/25/19 Ondansetron [Ondansetron Odt] 4 mg PO Q6H #20 tab 11/29/19
[2019-11-29] MEDS ORDERED: PROMETHAZINE HCL INJ 25 MG in SODIUM CHLORIDE 0.9% 50ML 50 ML IVPB ONE (16:58)
[2019-11-29] MEDS ORDERED: KCL 20MEQ/D5 1/2NS 1,000 ML IVS ONE (18:15)
[2019-11-29] MEDS: KCL 20MEQ/D5 1/2NS 1,000 ML IVS PRN (19:00)
--- NOTE | 2019-11-29 19:45 | CONS ---
SUPERVISING PHYSICIAN: Shawn Hyman M.D. DATE OF CONSULTATION: 11/29/19 REASON FOR CONSULTATION: Medical management. HISTORY OF PRESENT ILLNESS: This is a 79 year-old male patient who came to the hospital for consistent nausea. This patient had surgery on 11/18/19 which was an open sigmoid colectomy with appendectomy. Intraoperatively he did require a bladder repair. Postoperatively he was discharged on 11/25/19. During the time he was in the hospital the notes state that he was taking clear liquids which were advanced to full liquids. He was actually discharged on a mechanically soft diet. He states that since that time the patient has not been able to really take anything p.o. and is nauseated anytime he eats anything. He came to the Emergency Room last night and was given some fluids and sent home. Today, he returned to the Emergency Room for the same reason. He ended up having a CT of the abdomen and pelvis which showed a large fluid collection in the pelvis adjacent to the sigmoid anastomosis. This was highly suspicious for an anastomotic leak. Dr. Lorenz was contacted and he came to see the patient. He anticipates having a CT guided abscess drainage tomorrow. However, he asks for assistance with medical management. At time of examination, the patient is alert. He looks ill but he is in no distress. PAST MEDICAL HISTORY: 1. Hypertension. 2. Gastroesophageal reflux disease. PAST SURGICAL HISTORY: 1. Hernia repair. 2. Hemorrhoidectomy. 3. Sigmoid colectomy with appendectomy and intraoperative bladder repair. MEDICATIONS: 1. Omeprazole 20 mg daily. 2. Lisinopril 10 mg daily. 3. Restoril 15 mg at bedtime. ALLERGIES: CODEINE, LEVOFLOXACIN, METRONIDAZOLE, TRAMADOL. FAMILY HISTORY: Father at age 70 from a heart attack. Mother at age 75 from complications of a hip surgery. SOCIAL HISTORY: The patient is a nondrinker, nonsmoker, no illicit drugs. REVIEW OF SYSTEMS: CONSTITUTIONAL: No fever or chills. No recent weight loss or weight gain. HEENT: No headaches, vision changes, ear pain, nasal congestion or throat pain. RESPIRATORY: No cough, hemoptysis or pleuritic chest pain. CARDIOVASCULAR: No chest pain, palpitations or peripheral edema. GASTROINTESTINAL: Nausea. No significant vomiting. No diarrhea, no constipation. Some abdominal pain. GENITOURINARY: No dysuria, frequency or flank pain. ENDOCRINE: No polydipsia, polyuria or polyphagia. No heat or cold intolerance. MUSCULOSKELETAL: No joint pain or joint swelling or muscle cramps. NEUROLOGIC: No syncope, paresthesias or seizures. PHYSICAL EXAMINATION: VITAL SIGNS: Blood pressure 108/65, heart rate 108, respiratory rate 16, temperature 98.1, oxygen saturation 93%. GENERAL: Mr. David is a 79 year-old male patient who is ill in appearance but in no active distress. NEUROLOGIC: The patient is alert and oriented. LUNGS: Clear to auscultation bilaterally. CARDIOVASCULAR: Regular rate and rhythm which is sinus tachycardia with occasional PVCs per the desk monitor. ABDOMEN: Soft. He does have a little bit of tenderness to palpation towards the lower abdomen. Bowel sounds are hypoactive but positive. GENITOURINARY: Deferred. EXTREMITIES: Lower extremities with no significant edema. 2+ pulses. Capillary refill less than 2 seconds. LABORATORY: Show a mildly elevated BUN at 24, lactic acid normal at 1.0. Bilirubin 1.8. Magnesium 1.9, albumin 2.8. Lipase 70. White blood cell count is elevated at 14.5, hemoglobin 10.0, platelet count 385. Left shift with neutrophils at 85.6. Urinalysis with positive nitrites. ASSESSMENT: 1. Pelvic abscess status post sigmoid colectomy, possible anastomotic leak. 2. Intractable nausea. 3. Dehydration secondary to #2. 4. Urinary tract infection. 5. Anemia not in transfusion range. 6. Protein calorie malnutrition. 7. History of hypertension. PLAN: At this time the patient will be admitted to the hospital on empiric antibiotics with a plan for CT guided drainage of the abscess tomorrow. Dr. Lorenz is managing this. He is also on IV fluids. I feel the patient is dehydrated and he got 2 liters in the Emergency Room and I will continue his fluids now. The antibiotics that he has been placed on are likely sufficient for the urinary tract infection as well. Will keep an eye on his hemoglobin to ensure that this stays in an acceptable range or transfuse if it goes less than 7. Will keep NPO for now until cleared for diet by Surgery. Regarding his blood pressure medicine, I am going to hold that for now given his marginal blood pressure. Blood pressure is currently 108 systolically and he has not required any antihypertensives at this time. In the event that blood pressure becomes uncontrolled, I will restart it. I will hold off of any anticoagulation for DVT prophylaxis until after his procedure. Will place him on Protonic IV for GI ulcer prophylaxis. #[id number] [facility]
[2019-11-29] MEDS: PIPERACILLIN/TAZOBACTAM 3.375 GM in SODIUM CHLORIDE 0.9% 100ML 100 ML IVPB SCH (20:58)
[2019-11-30] MEDS ORDERED: ACETAMINOPHEN 325 MG TAB ONE (00:15)
[2019-11-30] MEDS ORDERED: ACETAMINOPHEN 325 MG TAB PO ONE (00:20)
[2019-11-30] MEDS: PIPERACILLIN/TAZOBACTAM 3.375 GM in SODIUM CHLORIDE 0.9% 100ML 100 ML IVPB SCH ×4 (00:22→19:28)
[2019-11-30] MEDS ORDERED: PANTOPRAZOLE SODIUM IV 40 MG VIAL ONE (03:06)
[2019-11-30] MEDS: KCL 20MEQ/D5 1/2NS 1,000 ML IVS PRN ×2 (04:46→17:39)
[2019-11-30] MEDS: PANTOPRAZOLE SODIUM IV 40 MG VIAL IV SCH (06:15)
[2019-11-30] MEDS ORDERED: ACETAMINOPHEN 325 MG TAB PO PRN (09:28)
[2019-11-30] MEDS: PROMETHAZINE HCL INJ 12.5 MG in SODIUM CHLORIDE 0.9% 50ML 50 ML IVPB PRN (09:34)
[2019-11-30] MEDS: MORPHINE SULFATE INJ 10 MG/ML VIAL IV PRN (14:33)
--- NOTE | 2019-11-30 14:36 | HP ---
HISTORY OF PRESENT ILLNESS: This is a 79-year-old man who is approximately 11 days postoperative from sigmoidectomy for stricture. 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 He had a primary anastomosis as well as a bladder repair and appendectomy. The inflammatory mass was attached to the bladder and the appendix as well as retroperitoneal. He did fairly well postoperatively, but he comes in now just feeling ill and having diarrhea. He was seen in the Emergency Department last last night and given some IV fluids and felt a little better, but this morning, he had chills and some abdominal pain and diarrhea, so he is back. CT scan showed evidence of a pelvic abscess. PAST MEDICAL HISTORY: 1. Hypertension. MEDICATIONS: 1. Lisinopril. ALLERGIES: CODEINE, LEVAQUIN, FLAGYL, TRAMADOL. SOCIAL HISTORY: The patient denies any illicit habits, no tobacco or alcohol either. REVIEW OF SYSTEMS: CONSTITUTIONAL: The patient is comfortable now. He was given some Zofran, but he did have subjective chills. No fever in the Emergency Department. HEENT: No headache, visual changes, sore throat. RESPIRATORY: No cough or wheeze. CARDIOVASCULAR: No chest pain or palpitations. GASTROINTESTINAL: Abdomen is not particularly painful, but there is some discomfort in the pelvis. He had nausea, vomiting and nonbloody fluid and loose, nonbloody stool. EXTREMITIES: No complaints. PHYSICAL EXAMINATION: VITAL SIGNS: In the Emergency Department, T-max 101, heart rate in the 100s, blood pressure 145/70, saturation 93% on room air. GENERAL: The patient is conscious, awake, alert and well-oriented, in no acute distress. HEENT: Sclerae anicteric. Oral mucosa is moist. NECK: Supple. CHEST: Clear and equal bilaterally. HEART: Regular tachy at 106, regular rhythm. ABDOMEN: Soft. There is mild lower abdominal tenderness. No diffuse rebound or evidence of diffuse peritonitis. His incision is intact with no obvious infection. Slight erythema in the mid wound on the right. No CVA tenderness. No overlying color changes. GENITOURINARY: He has a King in. It was reported very dark last night, right now it is clear yellow urine. EXTREMITIES: No edema. LABORATORY: White blood cell count 14, hematocrit, 30 platelet count 385. BMP looks good. Creatinine 1.6, lactic acid 1, transaminases okay. Total bilirubin 1.8, but unfractionated. Lipase 70. Urinalysis looks dirty, but results is pending. Since that time, grand negatives have come up. RADIOLOGY: CT of the abdomen shows fluid collection in the pelvis about 9 cm, could be related to the sigmoid anastomosis on my interpretation. The CT was done with contrast. There is no obvious contrast coming out of the anastomosis, but there is suggestion of an anastomotic leak. Also, given the dirty urine and the cystostomy repair, it could be bladder related. Also, the large mass from the diverticular disease, it could be an unrelated abscess. IMPRESSION: 1. Pelvic abscess. 2. Possible anastomotic leak post sigmoid colectomy for diverticular stricture with bladder repair and appendectomy. PLAN: Currently, he is hemodynamically stable. He has started antibiotics. He will get fluid hydration and drainage catheter placed in the abscess. We will proceed to rule out anastomotic leak likely with a water soluble contrast enema and rule out if this is either a bladder leak or an anastomotic leak. I discussed this with the patient, his daughter on the telephone and his significant other, the risks and benefits associated with this and he understands. He will be admitted and drainage in the morning. #[id number] [facility]
--- NOTE | 2019-11-30 16:17 | US ---
EXAM DESCRIPTION: Image guided placement of drainage catheter: Ultrasound. CLINICAL HISTORY: 79 years Male, ABSCESS PELVIS. BOWEL VERSUS BLADDER. COMPARISON: CT scan of the abdomen and pelvis with IV contrast November 28. TECHNIQUE: Procedure performed by Dr. Min. Dr. Davis was present during the procedure. Procedure explained to patient's medical power of computer network specialist, with risks and benefits and patient gave verbal and written consent. Patient supine on nursing bed. Sterile preparation and technique. Heterogeneous fluid and solid collection identified to the right of midline by ultrasound. Skin localization performed on the right lower quadrant skin abutting prior drainage tube and lateral to surgical incision site. Local anesthetic subdermal and Subcutaneous. Number 11 scalpel for skin puncture. Access to the lesion, from the right lower quadrant anterior abdominal skin utilizing Flexima APDL 10F x 25 cm locking pigtail drainage catheter system. . Multiple images of the abnormal fluid collection after the catheter was introduced confirm proper deployment of the locking pigtail in the collection.. Approximately 60 mL of dark red turbid fluid aspirated initially. Additional 40 mL drained into the collection bag. Specimen sent to laboratory for culture. The drainage system was secured to the skin via sterile dressing adhesive catheter synthetic john. No immediate complications on follow-up ultrasound images. Patient completed the procedure in stable condition. IMPRESSION: Successful ultrasound-guided placement of 10 Swedish drainage catheter in abscess cavity/hematoma right lower quadrant of the pelvis. Procedure performed by Dr. Min. Patient stable condition. Periventricular cultures are pending. Electronically signed by: Ridge Min MD 11/30/2019 4:15 PM CDT
[2019-12-01] MEDS: PIPERACILLIN/TAZOBACTAM 3.375 GM in SODIUM CHLORIDE 0.9% 100ML 100 ML IVPB SCH ×4 (00:51→17:49)
[2019-12-01] MEDS: BENZOCAINE-MENTH LOZ (CEPACOL) 1 EA LOZ MT PRN ×3 (01:44→18:45)
[2019-12-01] MEDS: KCL 20MEQ/D5 1/2NS 1,000 ML IVS PRN ×2 (03:08→18:40)
[2019-12-01] MEDS: PANTOPRAZOLE SODIUM IV 40 MG VIAL IV SCH (06:20)
[2019-12-01] MEDS: MORPHINE SULFATE INJ 10 MG/ML VIAL IV PRN ×2 (09:07→18:41)
[2019-12-01] MEDS: PROMETHAZINE HCL INJ 12.5 MG in SODIUM CHLORIDE 0.9% 50ML 50 ML IVPB PRN ×2 (09:08→18:40)
--- NOTE | 2019-12-01 11:05 | PN ---
SUPERVISING PHYSICIAN: Shawn Hyman MD DATE: 11/30/19 SUBJECTIVE: The patient is alert. No significant complaints of nausea at this time. He states his pain is controlled as well. He did have some spikes in fever which did respond to acetaminophen. OBJECTIVE: VITAL SIGNS: Blood pressure 118/71, heart rate 104, respiratory rate 18, temperature 99.7, oxygen saturation 97%. GENERAL: Mr. David is a 79-year-old male patient who is ill in appearance, but in no active distress. NEUROLOGIC: Alert. LUNGS: Clear to auscultation bilaterally. CARDIOVASCULAR: Regular rate and rhythm. Normal S1, S2. ABDOMEN: Soft. Positive bowel sounds. He does have some tenderness to palpation in the lower abdomen. GENITOURINARY: Deferred. EXTREMITIES: Lower extremities with no edema. Pulses 2+. Capillary refill is less than 2 seconds. LABORATORY: White count 14.4, hemoglobin 9.5, platelet count 344. BUN and creatinine have gone up a little bit to 22 and 1.35 respectively. ASSESSMENT: 1. Pelvic abscess status post sigmoid colectomy with possible anastomotic leak. 2. Intractable nausea. 3. Dehydration secondary to #2. 4. Urinary tract infection. 5. Anemia not in transfusion range. 6. Protein calorie malnutrition. 7. History of hypertension. PLAN: We are still awaiting CT-guided drainage of the abscess today. Dr. Lorenz is managing the abscess and the treatment of this. Once again, as stated yesterday, his blood pressure is not requiring antihypertensives right now. His tachycardia is to be expected given the fever that he has. When the fever is resolved, the heart rate is in normal range. We will continue current medications at this time and follow with Dr. Lorenz. #[id number] [facility]
--- NOTE | 2019-12-01 13:14 | RAD ---
EXAM DESCRIPTION: Chest,1 View CLINICAL HISTORY: 79 years Male, f/u CT findings COMPARISON: Previous chest x-ray March 08, 2016 TECHNIQUE: AP portable chest. FINDINGS: Heart size is large with centrally prominent pulmonary vascularity. The film is taken in partial expiration. The right hemidiaphragm is elevated. Infiltrate or volume loss is seen in the right lower lobe and right upper lobe. Minimal left perihilar infiltrate. No infiltrates are seen on the previous study. No pulmonary mass or worrisome nodule. No pneumothorax or pleural effusion. Bones are unremarkable. IMPRESSION: Infiltrative changes in the right lung and left perihilar region worrisome for pneumonia. Electronically signed by: Daniel Albarran MD 12/01/2019 1:13 PM CDT
[2019-12-01] MEDS: AZITHROMYCIN IV 500 MG in SODIUM CHLORIDE 0.9% 250ML 250 ML IVPB SCH (15:35)
--- NOTE | 2019-12-01 16:21 | RAD ---
EXAM DESCRIPTION: Barium Enema w/ Gastografin CLINICAL HISTORY: r/o anastomotic leak. Fluid collection in the pelvis after inflammatory mass resected from the sigmoid colon with anastomosis. COMPARISON: CT scan abdomen and pelvis without and with IV contrast following this examination. TECHNIQUE: Fluoroscopy performed by Dr. Min. Patient supine on fluoroscopic table. Program Support Assistant image by fluoroscopy obtained. Enema tip inserted in rectum. Diluted Gastrografin contrast introduced into the rectum in a retrograde manner under fluoroscopic visualization. Multiple fluoroscopic guided images. The enema tip was left in place while patient had abdominal pelvic CT scan. Patient later evacuated. The patient tolerated the procedure well, with no immediate complications. Fluoroscopy time was 0.7 minutes.. Fluoroscopic images recorded: 6 . Conventional overhead x-ray abdominal images recorded: 0. FINDINGS: Program Support Assistant film shows the drainage tube in the fluid collection at the level of the upper pelvis and the balloon inflated for the enema tip. Also skin annabel to the left of midline. After contrast was administered, contrast flowed well through the rectum and sigmoid colon and anastomotic site, and into the mid transverse colon. Scattered diverticula. No complications. Narrowing of the anastomotic site. No obstruction. Densities extending superior and inferior at the anastomotic site most likely related to the suture line. Please refer to CT scan images. No obstruction of the descending colon, splenic flexure, or distal transverse colon. No extravasation of contrast material into the pelvic cavity. IMPRESSION: Diluted Gastrografin enema showing narrowing and postsurgical changes at the anastomotic site, but no definite leakage or extravasation of contrast material in the adjacent soft tissues or pelvic cavity. No obstruction. Diverticula. Abscess drainage catheter. CRITICAL COMMUNICATION: The critical value was communicated directly by Dr. Min via phone call, with Dr. Shawn Lorenz, at approximately 1522 hours, on December 01, 2019. Electronically signed by: Ridge Min MD 12/01/2019 4:20 PM CDT
--- NOTE | 2019-12-01 16:45 | CT ---
EXAM DESCRIPTION: Pelvis w/wo Contrast: Computed Tomography. CLINICAL HISTORY: rule out anastomotic leak. Status post fluid collection in the pelvis after surgical resection of sigmoid inflammatory mass and obstruction with anastomosis. COMPARISON: CT scan of the abdomen and pelvis with IV contrast November 28. Gastrografin enema prior to CT scan. TECHNIQUE: Spiral-axial scans at 2.5 x 2.5 mm intervals through the abdomen and pelvis after Gastrografin enema, and before and after 75 mL Optiray 320 nonionic IV contrast. No oral contrast. Coronal and sagittal 2.0 mm reconstructions. 5 mm 10 minute Delayed helical-axial scans, liver through the pubic symphysis. No adverse reactions. Total Exam DLP 2662 mGy - cm. This exam was performed according to our departmental CT dose-optimization program which includes automated exposure control, adjustment of the mA and/or kV according to patient size and/or use of iterative reconstruction technique; to reduce radiation dose to as low as reasonably achievable (ALARA). FINDINGS: Terminal Ileum/Cecum: Minimal irregularity of the terminal ileum and cecum abutting the fluid collection to the right of midline. No oral contrast in the fluid collection. Drainage catheter coiled was positioned in the anterior superior-medial aspect of the collection which measures approximately 7.7 x 5.2 x 6.0 cm on the superior aspect with an elongated component which extends inferior and posterior into the anterior peritoneal reflection between the urinary bladder and the rectum. No IV contrast is seen within this fluid collection/abscess on any sequence, including 10 minute delay sequence. Colon: Narrowing of the sigmoid colon at the resection site. Sigmoid colon and the anastomotic site is well demonstrated and minimally distended by gas. No rectal contrast extravasating at the anastomotic site. Contrast and gas seen in multiple diverticula in the descending colon. Also cecum and transverse colon. No obstruction. Pelvic Organs: Urinary bladder catheter with balloon inflated. Approximately one third filled by IV contrast on delayed images. Minimal wall thickening. There is 6 present in the gravity into the anterior part of the bladder. No IV contrast extravasation from the urinary bladder or distal ureters. Minimal fluid in the anterior peritoneal reflection. Lung bases and pleura: Bilateral pleural effusions, more on the right. Right lower lobe atelectasis with air bronchograms. This has increased since the prior study. Liver, Stomach, Spleen, Adrenal Glands: Cysts in the left lobe of the liver stable. Stomach and other organs are stable. Pancreas, Gallbladder, Ducts: Minimal distention of the gallbladder. Fatty pancreas and duct no interval change. Kidneys and Ureters: Stable cysts left kidney. No echogenic stones or hydronephrosis or hydroureter bilaterally. No perirenal fluid collection. Mesentery: No fatty stranding and fascial thickening in the pelvis associated with prior surgery and fluid collection/abscess. Aorta: Moderate atherosclerotic calcification and stable. Small Bowel: Unremarkable. Spine and Bony Pelvis: Spondylosis and other changes as previously described and stable. Abdominal Wall/Back Soft Tissues: Postsurgical changes in the anterior abdominal wall. Left fatty inguinal hernia not containing bowel. IMPRESSION: 1. No obstruction of the sigmoid colon at the site of resection. No free air and no contrast extravasation. 2. No IV contrast leak from the distal ureters or posterior urinary bladder. 3. Drainage catheter located within the fluid collection/abscess. No IV contrast within the fluid collection with minimal enhancement. No rectal contrast within the fluid collection/abscess. 4. Irregular appearance of the terminal ileum which is abutting the inflammatory fluid collection and may be related to its location adjacent to the collection. Not well seen on the prior enema study. CRITICAL COMMUNICATION: The critical value was communicated directly by Dr. Min via phone call, with Dr. Shawn Lorenz, at approximately 1522 hours, on December 01, 2019. Electronically signed by: Ridge Min MD 12/01/2019 4:44 PM CDT
[2019-12-01] MEDS: BIFIDOBACTERIUM INFANTIS 4 MG CAP PO SCH (17:48)
[2019-12-01] MEDS: ENOXAPARIN SODIUM 40 MG/0.4 ML SYG SUBCU SCH (20:37)
--- NOTE | 2019-12-01 21:34 | PN ---
SUPERVISING PHYSICIAN: Shawn Hyman M.D. DATE: 12/01/19 SUBJECTIVE: The patient looks to be feeling a little better this morning. He denied any actual significant pain. No nausea or vomiting. Reports that he is actually feeling better. Review of his vital signs showed he is running just a low-grade fever in the last 24 hours with his T max temperature 101.4. OBJECTIVE: VITAL SIGNS: T max temperature 101.4, pulse 97, blood pressure 105/67, respirations 18, satting 96% on room air. GENERAL: The patient is resting in bed, looks to be comfortable in no acute distress. He is ill in appearance. CHEST: Lung sounds are clear, just a little diminished towards the bases. I do not hear any obvious rhonchi, rales or wheezing. HEART: Regular rate and rhythm. ABDOMEN: Soft. Tenderness noted on palpation to the lower abdomen. There is a drain in place on the right lower quadrant with sanguinous fluid draining into the gravity bag. King catheter is in place with yellow urine noted in the tube. EXTREMITIES: Without any edema. NEUROLOGIC: He is alert and oriented times three. LABORATORY: H&H is 8.4 and 25.6 this morning. Repeat at 1:00 showed it to be 8.9 and 26.6. White count is down to 12.2, platelet count 342,000. Differential does show a continued left shift. Chemistries show normal electrolytes. Creatinine now is at 1.14, calcium 7.5 corrects to 8.5 with albumin 2.2. C reactive protein was 22.8. MICROBIOLOGY: Final culture results on the urine show a Klebsiella pneumoniae sensitive to all but Ampicillin and Macrobid. Blood cultures remain negative at 24 hours. Anaerobic and aerobic cultures of abscess drainage fluid is still pending. RADIOLOGY: Chest x-ray shows an infiltrate changes in the right lung and peripheral hilar region worrisome for pneumonia. Barium enema and pelvis CT with contrast are pending. ASSESSMENT: 1. Pelvic abscess status post sigmoid colectomy with questionable anastomotic leak with percutaneous drain in place. Cultures pending. 2. Urinary tract infection with Klebsiella pneumoniae sensitive to all by Ampicillin and Macrobid. 3. Nausea secondary to #1, resolving with fluids. 4. Dehydration, resolved. 5. Fever with questionable pneumonia on chest x-ray probably secondary to splinting and atelectasis from #1 and associated pain currently on parenteral antibiotics to include azithromycin and Zosyn. 6. Anemia showing to be stable. 7. Protein calorie malnutrition secondary to recent surgical procedures and poor oral intake. 8. Chronic hypertension showing to be stable. PLAN: Will continue to follow the patient medically with Dr. Lorenz. He does have a drain in place and continues on Zosyn. Will add azithromycin to his regimen and consider questionable pneumonia. Given those findings I have requested the patient be up at least 4 times a day ambulating which Dr. Lorenz is okay with, with the drain remaining in place. He is also going to be on aggressive bronchial hygiene and incentive spirometry with encouragement of good bronchial clearance and deep breathing exercises to prevent any further development of questionable pneumonia. Will monitor his hemoglobin every 8 hours. He has been started on a clear liquid diet per Dr. Lorenz's request. As he starts with good oral intake will work to decrease his IV fluids, but given that he just had an CT of the pelvis with contrast will continue with IV fluids to ensure good clearance of the contrast media. I have started him back on DVT prophylaxis with Lovenox after consultation with Dr. Lorenz. He remains on Protonix for GI protection. Will continue to monitor the patient until we can transition to outpatient management. #[id number] [facility]
[2019-12-02] MEDS ORDERED: SODIUM CHLORIDE 0.9% (FLUSH) 10 ML SYG ONE (00:09)
[2019-12-02] MEDS: BENZOCAINE-MENTH LOZ (CEPACOL) 1 EA LOZ MT PRN (00:11)
[2019-12-02] MEDS: PIPERACILLIN/TAZOBACTAM 3.375 GM in SODIUM CHLORIDE 0.9% 100ML 100 ML IVPB SCH ×4 (00:12→18:37)
[2019-12-02] MEDS: KCL 20MEQ/D5 1/2NS 1,000 ML IVS PRN ×2 (04:25→20:13)
[2019-12-02] MEDS: PANTOPRAZOLE SODIUM IV 40 MG VIAL IV SCH (06:39)
[2019-12-02] MEDS: BIFIDOBACTERIUM INFANTIS 4 MG CAP PO SCH (08:30)
--- NOTE | 2019-12-02 11:45 | RAD ---
EXAM DESCRIPTION: Cystogram: CR/DR/XR. CLINICAL HISTORY: 79 years Male, post bladder repair. Rule out leak. COMPARISON: CT scan abdomen and pelvis with rectal and IV contrast November 30. TECHNIQUE: Procedure was explained to the patient. Patient supine on fluoroscopic table. Overhead conventional office bookkeeper radiograph of the pelvis. Pelvic fluoroscopic office bookkeeper image. Conray IV contrast administered into the urinary bladder through King catheter under fluoroscopic guidance. 150 mL was given before patient needed to void. Patient complained of pain and tenderness. Fluoroscopic images AP and bilateral oblique. Patient voided through the King catheter under fluoroscopic guidance. Post void fluoroscopic images AP and bilateral oblique. 8 fluoroscopic images total. Dose 59.33 mGy. DAP 17.6 Gy-centimeter squared. Total fluoroscopic time 0.9 minutes. FINDINGS: The office bookkeeper film shows residual contrast material from the previous CT scan in the base of the bladder. Fluid collection/abscess drain right pelvis. Skin wire sutures. Images show irregularity of the urinary bladder wall while filling and at maximal filling, 150mL, according to patient tolerance. No urinary tract contrast extravasating from the bladder during filling, at maximal distention, and after voiding. IMPRESSION: No extravasation of urinary contrast on cystogram. Irregularity of the bladder wall mucosa. Electronically signed by: Ridge Min MD 12/02/2019 11:43 AM CDT
--- NOTE | 2019-12-02 14:01 | PN ---
SUPERVISING PHYSICIAN: Shawn Hyman M.D. DATE: 12/02/19 SUBJECTIVE: The patient is doing fairly well. He has been up a little bit ambulating. He has been started on a clear liquid diet. He is tolerating this without any complications. He has had a long 24 hours as he had a barium enema yesterday and a cystogram today, which he tolerated without any complications. He does remain afebrile now for 48 hours with T-max being 99.2. OBJECTIVE: VITAL SIGNS: T-max 99.2, pulse 82, blood pressure 127/78, respirations, 16 saturation 98% on room air. GENERAL: The patient is resting comfortably. He does not appear to be in any distress. He is alert. He does look like he feels a little better today. CHEST: Lung sounds are clear, just a little diminished towards the bases. No obvious rhonchi, rales or wheezing. HEART: Regular rate and rhythm. ABDOMEN: Soft. Tenderness over the draining place to the abdomen on the right lower quadrant with incision lines clean and dry. Bowel sounds are active. EXTREMITIES: Without any edema. NEUROLOGIC: He is alert and oriented times three. LABORATORY: White count now is normalized to 8,300. Hemoglobin and hematocrit are stable at 8.4 and 24.8, respectively. Platelet count 348,000. Chemistries show normal electrolytes. Yesterday, his creatinine was normal at 1.14. We will plan to recheck labs in the morning. MICROBIOLOGY: Final culture again showed Klebsiella pneumoniae on the urine. See that repot for details. Preliminary cultures results of the percutaneous drainage show a moderate growth Enterococcus faecalis with cultures pending. RADIOLOGY: He had barium enema yesterday as well as IV contrast for CT of the pelvis. Please see those reports for details as it was discussed between Dr. Min, Radiology, and Dr. Lorenz. It showed no definite leakage or extravasation of contrast material in the adjacent soft tissues or pelvic cavity. No obstruction. Abscess drainage catheter in place. Cystogram shows no extravasation of urine contrast on cystogram with irregularity of the bladder wall mucosa per Dr. Min. Please see those reports for details. ASSESSMENT: 1. Pelvic abscess status post sigmoid colectomy with percutaneous drainage and drainage system in place with no obvious leak noted on repeat CT with barium enema with preliminary cultures showing Enterococcus species, specifically faecalis with cultures pending. 2. Urinary tract infection secondary to Klebsiella pneumoniae with cystogram showing no leakage of urine with the patient showing good response to treatment. 3. Nausea secondary to #1, resolved with treatment. 4. Dehydration, resolved. 5. Fever with concerns for possible pneumonia on chest x-ray, likely due to splinting, atelectasis and pain with the patient showing good response to treatment and no current signs of desaturation or pneumonia on clinical exam with the patient currently on azithromycin and Zosyn. 6. Anemia, stable after 24 hours. 7. Protein calorie malnutrition secondary to recent surgical procedures and poor oral intake, currently on protein supplementation. 8. Chronic hypertension, stable. PLAN: We will continue current plan of care at this point with antibiotics of Zosyn and azithromycin for coverage of the urinary tract infection, the abdominal abscess and questionable pneumonia. His drainage bag remains in place. He has been encouraged to ambulate and they are irrigating the drainage system q.8h. We will await culture results to further target antibiotic therapy in regards to the abscess. He is again encouraged on aggressive bronchial hygiene and has incentive spirometry in place. We started him back on DVT prophylaxis per protocol given that his hemoglobin and hematocrit are stable. I have encouraged him to increase his oral intake and also take nutritional supplementation in the form of protein drinks. As he increases his oral intake, we will start decreasing his IV fluids, but again he had quite a bit of contrast yesterday and we will continue with IV fluids today and recheck BMP in the morning. He remains on DVT prophylaxis. Until the patient can transition to outpatient management, we will continue to monitor and treat as needed. #[id number] MTDD
[2019-12-02] MEDS: AZITHROMYCIN IV 500 MG in SODIUM CHLORIDE 0.9% 250ML 250 ML IVPB SCH (15:14)
[2019-12-02] MEDS: ENOXAPARIN SODIUM 40 MG/0.4 ML SYG SUBCU SCH (21:02)
[2019-12-02] MEDS: MORPHINE SULFATE INJ 10 MG/ML VIAL IV PRN (21:09)
[2019-12-03] MEDS: PIPERACILLIN/TAZOBACTAM 3.375 GM in SODIUM CHLORIDE 0.9% 100ML 100 ML IVPB SCH ×3 (00:30→13:21)
[2019-12-03] MEDS: KCL 20MEQ/D5 1/2NS 1,000 ML IVS PRN ×2 (04:49→13:21)
[2019-12-03] MEDS: BENZOCAINE-MENTH LOZ (CEPACOL) 1 EA LOZ MT PRN ×2 (05:24→15:32)
[2019-12-03] MEDS: PANTOPRAZOLE SODIUM IV 40 MG VIAL IV SCH (06:28)
[2019-12-03] MEDS: BIFIDOBACTERIUM INFANTIS 4 MG CAP PO SCH (08:59)
[2019-12-03] MEDS ORDERED: SODIUM CHL 0.9% 50ML MIN-BAG+ 50 ML IVPB ONE (15:15)
[2019-12-03] MEDS ORDERED: MEROPENEM 1 GM VIAL IVPB ONE (15:15)
[2019-12-03] MEDS: MEROPENEM 1 GM in SODIUM CHL 0.9% 50ML MIN-BAG+ 50 ML IVPB SCH ×2 (15:17→23:00)
[2019-12-03] MEDS: AZITHROMYCIN IV 500 MG in SODIUM CHLORIDE 0.9% 250ML 250 ML IVPB SCH (15:53)
--- NOTE | 2019-12-03 16:39 | PN ---
SUPERVISING PHYSICIAN: Shawn Hyman M.D. DATE: 12/03/19 SUBJECTIVE: The patient continues to do well. His drain is still draining with some intermittent flushing. He is tolerating his diet. He is actually doing well with his activity level. We have his cultures back and I did talk to Infectious Disease and will change him to Meropenem and will discuss plan of care as far as antibiotic at discharge. He has not had any fever and no shortness of breath, no nausea. OBJECTIVE: VITAL SIGNS: Temperature 98.1, pulse 84, blood pressure 120/76, respirations, 16 saturation 95% on room air. GENERAL: The patient is resting comfortably. He does not appear to be in any distress. He is alert. He does look like he feels a little better today. CHEST: Lung sounds are clear, just a little diminished towards the bases. No obvious rhonchi, rales or wheezing. HEART: Regular rate and rhythm. EXTREMITIES: Without any edema. LABORATORY: White count showing to be stable at 7,500. Hemoglobin and hematocrit are stable at 8.6 and 25.6, respectively. Platelet count 374,000. Differential shows a resolved left shift. Chemistries show electrolytes are stable with calcium of 7.9 corrected to 8.2 with previous albumin of 2.2. C- reactive protein is down to 14.3 from 22.8. Creatinine 1.15. MICROBIOLOGY: Urine grew Klebsiella pneumoniae which was negative for ESDL but resistant to ampicillin and Macrobid. Cultures results of the abscess fluid from the abdomen drainage grew out 2 organisms, anaerobic organism, Bacteroids faecalis with final reports pending. There was also an aerobic culture in the form of Enterococcus faecalis which was pansensitive to both vancomycin and ampicillin. Blood cultures remain negative after 4 days. RADIOLOGY: No additional radiographic studies today. ASSESSMENT: 1. Pelvic abscess status post sigmoid colectomy with percutaneous drainage showing no leakage on CT with culture results indicated a Bacteroids faecalis and Enterococcus faecalis. 2. Urinary tract infection secondary to Klebsiella pneumoniae with cystogram showing no indication of leakage of urine. 3. Nausea secondary to #1, resolved. 4. Dehydration, resolved with fluids. 5. Sepsis secondary to #1 with workup indicating possible pneumonia on a chest x-ray probably due to some atelectasis and splinting but no signs of desaturation with patient currently on azithromycin and Zosyn and transitioned to Meropenem. 6. Anemia, stable. 7. Protein calorie malnutrition secondary to recent surgical procedures and poor oral intake, currently on protein supplementation. 8. Chronic hypertension, stable. PLAN: I talked with Dr. Wood via text with culture results, she recommended changing him to Meropenem so we don't have to add Flagyl and we can stop the Zosyn. Those should be well covered for both anaerobic and aerobic coverage. His urinary tract infection is being treated currently with Zosyn as well and he is on azithromycin with initial concerns for pneumonia. Dr. Wood further recommended that he could be discharged on Invanz unless his insurance will pay for Meropenem and in that case he could to home treatment. More likely he will discharge on Invanz, he will need a PICC line placement and also will need to be discharged per Dr. Wood on oral antibiotics to include Augmentin. I did discuss the case with Dr. Min as well as Dr. Lorenz. I believe the plan is to keep the patient over the weekend, continue with diet, ambulation and aggressive pulmonary hygiene and antibiotic therapy and get a PICC line placed either Friday or Friday. Continue with antibiotic based off discussion with Dr. Wood. Again, I did not get a duration on the antibiotics. I tried to get back to her, she is not answering my call or my texts so will need to address this before we discharge. Again, until we can transition patient to outpatient management, we will continue to monitor and treat as needed #[id number] MTDD
[2019-12-03] MEDS: PROMETHAZINE HCL INJ 12.5 MG in SODIUM CHLORIDE 0.9% 50ML 50 ML IVPB PRN (18:18)
[2019-12-03] MEDS: ENOXAPARIN SODIUM 40 MG/0.4 ML SYG SUBCU SCH (20:50)
[2019-12-04] MEDS: KCL 20MEQ/D5 1/2NS 1,000 ML IVS PRN (01:40)
[2019-12-04] MEDS: PANTOPRAZOLE SODIUM IV 40 MG VIAL IV SCH (06:33)
[2019-12-04] MEDS: MEROPENEM 1 GM in SODIUM CHL 0.9% 50ML MIN-BAG+ 50 ML IVPB SCH (06:33)
[2019-12-04] MEDS: BIFIDOBACTERIUM INFANTIS 4 MG CAP PO SCH (10:09)
[2019-12-04] MEDS: LISINOPRIL 10 MG TAB PO SCH (10:09)
[2019-12-04] MEDS ORDERED: ERTAPENEM 1 GM VIAL ONE (10:30)
[2019-12-04] MEDS ORDERED: SODIUM CHL 0.9% 50ML MIN-BAG+ 50 ML IVPB ONE (10:31)
[2019-12-04] MEDS ORDERED: ERTAPENEM 1 GM in SODIUM CHL 0.9% 50ML MIN-BAG+ 50 ML IVPB SCH (11:30)
[2019-12-04] MEDS: AZITHROMYCIN IV 500 MG in SODIUM CHLORIDE 0.9% 250ML 250 ML IVPB SCH (15:13)
--- NOTE | 2019-12-04 16:08 | PN ---
SUPERVISING PHYSICIAN: Shawn Hyman M.D. DATE: 12/04/19 SUBJECTIVE: The patient is sitting up in his chair in his room. His family is at the bedside. He has no complaints of nausea, vomiting or chest pain. OBJECTIVE: VITAL SIGNS: Temperature 97.1, heart rate 98, blood pressure 106/73, respiratory rate 16, O2 saturation 99% on room air. RESPIRATORY: Essentially clear to auscultation bilaterally. CARDIAC: Regular rate and rhythm. EXTREMITIES: No clubbing, cyanosis or edema. NEUROLOGIC: He is awake and alert. LABORATORY: Preliminary blood cultures show no growth after 4 days. All other labs and films have been reviewed via the EMR. ASSESSMENT: 1. Pelvic abscess status post sigmoid colectomy with percutaneous drainage showing no leakage on CT with culture results indicated a Bacteroids faecalis and Enterococcus faecalis. 2. Urinary tract infection secondary to Klebsiella pneumoniae with cystogram showing no indication of leakage of urine. 3. Nausea secondary to #1, resolved. 4. Dehydration, resolved with fluids. 5. Sepsis secondary to #1 with workup indicating possible pneumonia on a chest x-ray probably due to some atelectasis and splinting but no signs of desaturation with patient currently on azithromycin and Zosyn and transitioned to Meropenem. 6. Anemia, stable. 7. Protein calorie malnutrition secondary to recent surgical procedures and poor oral intake, currently on protein supplementation. 8. Chronic hypertension, stable. PLAN: We will continue present plan of care. I have discontinued his Merrem and will start him on Invanz as the plan for now is to flush his drain twice daily. He is to get a PICC line on Friday. He will have followup at his home for his abdominal drain care as well as Invanz daily and Augmentin. I have ordered lab for tomorrow. Will continue with recommendations per Dr. Lorenz. #[id number] MTDD
[2019-12-04] MEDS: ENOXAPARIN SODIUM 40 MG/0.4 ML SYG SUBCU SCH (21:23)
[2019-12-05] MEDS: KCL 20MEQ/D5 1/2NS 1,000 ML IVS PRN (03:16)
[2019-12-05] MEDS: PANTOPRAZOLE SODIUM IV 40 MG VIAL IV SCH (06:09)
[2019-12-05] MEDS ORDERED: ERTAPENEM 1 GM VIAL ONE (08:31)
[2019-12-05] MEDS ORDERED: SODIUM CHL 0.9% 50ML MIN-BAG+ 50 ML IVPB ONE (08:32)
[2019-12-05] MEDS: ERTAPENEM 1 GM in SODIUM CHL 0.9% 50ML MIN-BAG+ 50 ML IVPB SCH (08:55)
[2019-12-05] MEDS: LISINOPRIL 10 MG TAB PO SCH (08:55)
[2019-12-05] MEDS: BIFIDOBACTERIUM INFANTIS 4 MG CAP PO SCH (08:55)
[2019-12-05] MEDS ORDERED: ONDANSETRON INJ 4 MG/2 ML VIAL IV PRN (10:24)
[2019-12-05] MEDS: AZITHROMYCIN IV 500 MG in SODIUM CHLORIDE 0.9% 250ML 250 ML IVPB SCH (15:46)
--- NOTE | 2019-12-05 16:21 | PN ---
DATE: 12/05/19 DIAGNOSIS: Admitted for postoperative fever, nausea and vomiting and found to have pelvic hematoma and a urinary tract infection. SUBJECTIVE: Currently, the patient is without complaints. He is not complaining of pain, nausea or vomiting. He had a bowel movement yesterday. He is tolerating some orals, although he still has lack of taste and smell and appetite. OBJECTIVE: VITAL SIGNS: T-max 98, heart rate in 80s, blood pressure has been stable. I&O: Adequate urine output, intake 1.8, urine 2.5 is abdominal drain for the pelvic fluid collection, 80 milliliters of old blood. No purulence. REVIEW OF SYSTEMS: As above, otherwise negative. The King has been removed and he is able to void spontaneously. GENERAL:He is conscious, alert and oriented and in no distress. HEENT: Sclera anicteric. CHEST: Clear bilaterally. HEART: Regular. ABDOMEN: Soft, nondistended. I did remove 3 or 4 annabel in the middle of his wound and got out fluid with no purulence and the erythema in that area is now down. Drain bag is showing old blood. EXTREMITIES: No edema, no Homans's sign. LABORATORY: White count 7, down from 14 on admission. Hematocrit 27, platelet count 410. CMP is essentially normal. 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 He also underwent a bladder repair at that time. He was readmitted and evaluated for pelvic infection, a leak was ruled out. He had an infected hematoma. The urine culture showed Klebsiella which has been treated. The pelvic fluid culture grew other than Klebsiella, Infectious Disease was consulted and made recommendation. He was started on Invanz, he is going to need a PICC line and go home on Invanz and Augmentin and with follow recommendations of Infectious Disease. Currently, it looks like he has improved significantly and eager to get home. PLAN: PICC line tomorrow and then likely discharge home with IV antibiotics. #[id number] MTDD
[2019-12-05] MEDS: ENOXAPARIN SODIUM 40 MG/0.4 ML SYG SUBCU SCH (21:04)
[2019-12-05] MEDS: AMOXICILLIN & POT CLAVULANATE 875 MG TAB PO SCH (21:04)
[2019-12-06] MEDS: PANTOPRAZOLE SODIUM IV 40 MG VIAL IV SCH (05:41)
--- NOTE | 2019-12-06 07:52 | PN ---
SUPERVISING PHYSICIAN: Shawn Hyman M.D. DATE: 12/05/19 SUBJECTIVE: The patient is sitting up bed. His daughter is at the bedside. He had some nausea earlier, but Zofran has helped. Otherwise, no complaints. OBJECTIVE: VITAL SIGNS: Temperature 98.4, heart rate 86, blood pressure 119/73, respiratory rate 16, O2 saturation 99% on room air. RESPIRATORY: Essentially clear to auscultation bilaterally. CARDIAC: Regular rate and rhythm. NEUROLOGIC: He is awake, alert and oriented x3. LABORATORY: WBCs 7.1, hemoglobin 9.2, hematocrit 27.6. Electrolytes are basically within normal limits with the exception of his calcium is slightly low at 7.8. CRP 10.9. Preliminary blood cultures show no growth after 5 days. Urine culture shows Klebsiella pneumoniae. All other labs and films have been reviewed via the EMR. ASSESSMENT: 1. Pelvic abscess status post sigmoid colectomy with percutaneous drainage showing no leakage on CT with culture results indicated a Bacteroids faecalis and Enterococcus faecalis. 2. Urinary tract infection secondary to Klebsiella pneumoniae with cystogram showing no indication of leakage of urine. 3. Nausea secondary to #1, resolved. 4. Dehydration, resolved with fluids. 5. Sepsis secondary to #1 with workup indicating possible pneumonia on a chest x-ray probably due to some atelectasis and splinting but no signs of desaturation with patient currently on azithromycin and Zosyn and transitioned to meropenem. 6. Anemia, stable. 7. Protein calorie malnutrition secondary to recent surgical procedures and poor oral intake, currently on protein supplementation. 8. Chronic hypertension, stable. PLAN: We will continue present plan of care. He should get his PICC line tomorrow. He has been started on Invanz and Augmentin as per Infectious Disease recommendations. He will need to go home on Augmentin as well as Invanz infusions. Surgical issues will be per Dr. Shawn Lorenz. I have discontinued his IV fluids. Hopefully, he can be discharged in the next 24 to 48 hours. #[id number] MTDD
[2019-12-06] MEDS ORDERED: SODIUM CHL 0.9% 50ML MIN-BAG+ 50 ML IVPB ONE (07:59)
[2019-12-06] MEDS ORDERED: ERTAPENEM 1 GM VIAL ONE (07:59)
[2019-12-06] MEDS: ERTAPENEM 1 GM in SODIUM CHL 0.9% 50ML MIN-BAG+ 50 ML IVPB SCH (09:29)
[2019-12-06] MEDS: AMOXICILLIN & POT CLAVULANATE 875 MG TAB PO SCH ×2 (09:29→20:36)
[2019-12-06] MEDS: BIFIDOBACTERIUM INFANTIS 4 MG CAP PO SCH (09:29)
[2019-12-06] MEDS: LISINOPRIL 10 MG TAB PO SCH (09:29)
[2019-12-06] MEDS: ONDANSETRON ODT 8 MG TAB SL PRN (09:29)
[2019-12-06] MEDS: AZITHROMYCIN IV 500 MG in SODIUM CHLORIDE 0.9% 250ML 250 ML IVPB SCH (16:16)
--- NOTE | 2019-12-06 19:35 | PN ---
SUPERVISING PHYSICIAN: Mir Velasquez M.D. DATE: 12/06/19 SUBJECTIVE: The patient is sitting up in his chair. Feels much better. He is to get his PICC line today and hopefully will discharge tomorrow. He understands the plan of care. OBJECTIVE: VITAL SIGNS: Temperature 98.1, heart rate 78, blood pressure 109/70, respiratory rate 16, O2 saturation 97% on room air. RESPIRATORY: Essentially clear to auscultation bilaterally. CARDIAC: Regular rate and rhythm. NEUROLOGIC: He is awake, alert and oriented times three. LABORATORY: There are no labs or films to report at this time. ASSESSMENT: 1. Pelvic abscess status post sigmoid colectomy with percutaneous drainage showing no leakage on CT with culture results indicated a Bacteroids faecalis and Enterococcus faecalis. 2. Urinary tract infection secondary to Klebsiella pneumoniae with cystogram showing no indication of leakage of urine. 3. Nausea secondary to #1, resolved. 4. Dehydration, resolved with fluids. 5. Sepsis secondary to #1 with workup indicating possible pneumonia on a chest x-ray probably due to some atelectasis and splinting but no signs of desaturation with patient currently on azithromycin and Zosyn and transitioned to meropenem. 6. Anemia, stable. 7. Protein calorie malnutrition secondary to recent surgical procedures and poor oral intake, currently on protein supplementation. 8. Chronic hypertension, stable. PLAN: We will continue present supportive care. He is to get his PICC line today at 6:00 PM. Will discharge him tomorrow with outpatient antibiotic treatment with Invanz. He will take oral Augmentin. Surgical issues will be per Dr. Lorenz. I will let him discuss his abdominal drain and hopefully he will continue to improve clinically and be able to be discharged tomorrow. #[id number] MTDD
--- NOTE | 2019-12-06 20:37 | RAD ---
EXAM: XR Chest, 1 View CLINICAL HISTORY: PICC placement TECHNIQUE: Frontal view of the chest. COMPARISON: 12/01/2019 FINDINGS: Lungs: Stable mild basilar atelectasis. Pleural space: No pneumothorax or pleural effusion. Heart: Stable cardiac shadow. Mediastinum: No abnormality noted. Bones/joints: No osseous destruction or sclerosis noted. Tubes, lines and devices: Right percutaneous central venous catheter terminates in the distal 3rd of the SVC. IMPRESSION: 1. Lines and tubes as above. 2. Otherwise, no change. Electronically signed by: Meredith Tolentino MD 12/06/2019 8:36 PM CDT
[2019-12-07] MEDS: ENOXAPARIN SODIUM 40 MG/0.4 ML SYG SUBCU SCH (00:12)
[2019-12-07] MEDS: PANTOPRAZOLE SODIUM IV 40 MG VIAL IV SCH (05:45)
[2019-12-07] MEDS: LISINOPRIL 10 MG TAB PO SCH (09:13)
[2019-12-07] MEDS: AMOXICILLIN & POT CLAVULANATE 875 MG TAB PO SCH (09:13)
[2019-12-07] MEDS: ERTAPENEM 1 GM in SODIUM CHL 0.9% 50ML MIN-BAG+ 50 ML IVPB SCH (09:13)
[2019-12-07] MEDS: BIFIDOBACTERIUM INFANTIS 4 MG CAP PO SCH (09:13)
[2019-12-07] MEDS: ONDANSETRON ODT 8 MG TAB SL PRN (09:15)
[2019-12-07 10:14] VITALS: TEMP 97.4; O2SAT 95
[2019-12-07 15:03] VITALS: BP 106/72
--- NOTE | 2019-12-13 10:15 | DS ---
SUPERVISING PHYSICIAN: Mir Velasquez MD DISCHARGE DIAGNOSIS: 1. Pelvic abscess status post sigmoid colectomy with percutaneous drainage showing no leakage on CT with culture results indicating Bacteroids faecalis and Enterococcus faecalis. 2. Urinary tract infection secondary to Klebsiella pneumoniae with cystogram showing no indication of leakage of urine. 3. Nausea secondary to #1, resolved. 4. Dehydration, resolved with fluids. 5. Sepsis secondary to #1 with workup indicating possible pneumonia on a chest x-ray probably due to some atelectasis. There no signs of desaturation. The patient was on azithromycin and Zosyn and transitioned to meropenem. 6. Anemia, stable. 7. Protein calorie malnutrition secondary to recent surgical procedure and poor oral intake. 8. Chronic hypertension, stable. HISTORY OF PRESENT ILLNESS: This is a 79-year-old male patient who was actually admitted to the hospital under Dr. Shawn Lorenz, his surgeon. He had previously been in the hospital for surgery on 11/18/19 which was an open sigmoid colectomy with appendectomy. Intraoperatively, he did require a bladder repair. Postoperatively he was discharged on 11/25/19. During the time he was in the hospital the notes state that he was taking clear liquids which were advanced to full liquids. He then went through routine postoperative care and was discharged on 11/25/19. He had been discharged on clear liquids and advanced to full liquids and discharged on mechanical soft diet. When he went home, he had very limited oral intake and was nauseated most of the time and did not take much p.o. In the ER, he was given some fluids and sent home. The following morning, he returned to the Emergency Room for the same reason. CT of the abdomen and pelvis which showed a large fluid collection in the pelvis adjacent to the sigmoid anastomosis. This was highly suspicious for an anastomotic leak. Dr. Lorenz admitted the patient to the hospital. We were consulted for medical management. HOSPITAL COURSE: The patient was admitted to the hospital under Dr. Lorenz and our services continued his home medications. He was taken to surgery and had subcutaneous drain placed without problems. He continued to have his operative issues managed by Dr. Lorenz. He very slowly improved to the point that he did not have any significant pain with minimal nausea and vomiting. He did have a low grade temperature at one point, but was given aggressive pulmonary hygiene. He continued on Zosyn and then azithromycin was added to his regimen considering he may have a questionable pneumonia. He was up 4 to [address] Lorenz, frequent ambulation in the hallway. His drain remained in place. At one point, his H&H dropped and that was monitored very closely. His family was at the hospital to assist him. His diet was slowly advanced, he had aggressive pulmonary hygiene and walked frequently in the hallways. There was some concern at some point that there was minimal drainage from the subcutaneous abdominal drain, but there was quite a bit of drainage in the area next to it. That was followed by Dr. Lorenz. Today on the day discharge, we had planned to do a CT of the abdomen, but CT was down. The patient would like to go home, so he will be discharged in stable condition. LABORATORY: WBCs got up as high as 14,500 on the day of admission and today are at 7.1. Hemoglobin got down as low as 8.4 on two separate occasions and today is up to 10. His electrolytes for the most part remain fairly stable. Calcium did get down to as low as 7.5, but was always in the upper 7s. Mainly, electrolytes were within normal limits. Creatinine got as high as 1.35 and today is 0.98. C-reactive protein started as high as 22.8 and today is 10.9. MICROBIOLOGY: Urine culture was positive for Klebsiella pneumoniae. His preliminary blood cultures showed no growth after 5 days. RADIOLOGY: Final chest x-ray showed 1) Lines and tubes as previously indicated. 2) Otherwise stable abdomen. DISCHARGE PLAN: The patient will be discharged home in stable condition. He is to resume his diet as per instructions by Dr. Lorenz. In addition to his previous home medication, he is to continue on Augmentin. He has a followup appointment with Dr. Anaya on 12/16/19 at 10:15 AM. He is to followup with Dr. Shawn Lorenz on 12/20/19 at 11:15. Tomorrow, he is to return to the hospital for a CT of the abdomen and Dr. Lorenz will make a decision at that time whether he will pull the drain or not. Otherwise, he has dressing changes per home health daily. He will also come into the hospital for his daily Invanz IV antibiotics. He will take his Augmentin at home. All other operative issues will be per Dr. Lorenz. He is to return to the hospital or followup with Dr. Anaya for any problems or complications. DISCHARGE MEDICATIONS: 1. Omeprazole. 2. Lisinopril. 3. Restoril. 4. Zofran. 5. Align. 6. Augmentin. 7. Invanz IV. #[id number] MTDD
== END 2019-12-07 12:30 | disposition home health service (06) | DRG 862 ==
LOC: ER 12:41 → OBSVTOIN 18:17 → MS 18:17
PROVIDERS: ADMIT Surgery; ATTEND Nurse Practitioner Acute Care
PROC: BW211ZZ Computerized Tomography (CT Scan) of Abdomen and Pelvis using Low Osmolar Contrast (ICD-10-PCS; 2019-11-29)
PROC: 0W9J30Z Drainage of Pelvic Cavity with Drainage Device, Percutaneous Approach (ICD-10-PCS; principal; 2019-11-30)
PROC: B42C1ZZ Computerized Tomography (CT Scan) of Pelvic Arteries using Low Osmolar Contrast (ICD-10-PCS; 2019-12-01)
PROC: 02HV33Z Insertion of Infusion Device into Superior Vena Cava, Percutaneous Approach (ICD-10-PCS; 2019-12-06)
DX: T81.49XA Infection following a procedure, other surgical site, initial encounter (principal); A41.81 Sepsis due to Enterococcus; J18.9 Pneumonia, unspecified organism; N39.0 Urinary tract infection, site not specified; E46 Unspecified protein-calorie malnutrition; J98.11 Atelectasis; K91.870 Postprocedural hematoma of a digestive system organ or structure following a digestive system procedure; K68.11 Postprocedural retroperitoneal abscess; B96.1 Klebsiella pneumoniae [K. pneumoniae] as the cause of diseases classified elsewhere; E86.0 Dehydration; I10 Essential (primary) hypertension; K21.9 Gastro-esophageal reflux disease without esophagitis; D64.9 Anemia, unspecified; Y83.2 Surgical operation with anastomosis, bypass or graft as the cause of abnormal reaction of the patient, or of later complication, without mention of misadventure at the time of the procedure; Y92.239 Unspecified place in hospital as the place of occurrence of the external cause; Z88.5 Allergy status to narcotic agent; Z88.1 Allergy status to other antibiotic agents; Z88.3 Allergy status to other anti-infective agents; Z90.49 Acquired absence of other specified parts of digestive tract; Z79.899 Other long term (current) drug therapy

== ENCOUNTER 2019-12-16 08:26 | Observation (INO) | payer MEDICARE, OTHER ==
[2019-12-16] MEDS ORDERED: SODIUM CHLORIDE 0.9% (FLUSH) 10 ML SYG IV PRN ×2 (09:19→13:24)
[2019-12-16] MEDS ORDERED: SODIUM CHLORIDE 0.9% 1000ML 1,000 ML IVS ONE (09:19)
--- NOTE | 2019-12-16 10:17 | ED.PDOC ---
History of Present Illness - General Chief Complaint: Fever Stated Complaint: fever 101 last night Time Seen by Provider: 12/16/19 09:19 Source: patient, RN notes reviewed, Vital Signs reviewed, family - Daughter, old records - From his previous visits here in the emergency department. Exam Limitations: no limitations - History of Present Illness Initial Comments: Patient is a 79-year-old white male who presents with complaints of generalized malaise and fatigue. Additionally patient has had a fever starting last night. Patient also complains of associated nausea and some stomach discomfort. Patient was seen by me approximately 4 weeks ago and diagnosed with an abscess status post partial colectomy for bowel obstruction. Patient was admitted to the hospital at that time and a drain was placed in the fluid collection. Since that time patient has had malaise and fatigue and poor p.o. intake. Today, patient has not eaten or drank anything and is intermittently febrile. Timing/Duration: 24 hours, constant, getting worse Severity: moderate Improving Factors: nothing Worsening Factors: movement Associated Symptoms: fever/chills, loss of appetite, malaise, nausea/vomiting, weakness Allergies/Adverse Reactions: Allergies Codeine Allergy (Verified 12/04/19 21:30) Levofloxacin [From Levaquin] Allergy (Verified 12/04/19 21:30) Metronidazole [From Flagyl] Allergy (Verified 12/04/19 21:30) Tramadol Allergy (Verified 12/04/19 21:30) Home Medications: Ambulatory Orders Omeprazole [Prilosec Cap] 20 mg PO DAILY 03/08/16 Misc Natural Products [Cholesterol Relief] 1 cap PO DAILY 10/05/19 Lisinopril 10 mg PO DAILY 11/18/19 Temazepam [Restoril] 15 mg PO BEDTIME PRN #7 cap 11/25/19 Ondansetron [Ondansetron Odt] 4 mg PO Q6H #20 tab 11/29/19 Amoxicillin & Pot Clavulanate [Augmentin Tab] 875 mg PO BID #36 tab 12/07/19 Bifidobacterium Infantis [Align] 4 mg PO BID cap 12/07/19 Ondansetron Odt [Zofran Odt] 4 mg SL Q4H PRN tab 12/07/19 Review of Systems - Review of Systems Constitutional: States: see HPI, chills, fever, malaise, weakness EENTM: States: no symptoms reported. Denies: eye pain, blurred vision, double vision, throat pain, mouth pain Respiratory: States: no symptoms reported. Denies: cough, short of breath, wheezing Cardiology: States: no symptoms reported. Denies: chest pain, palpitations, syncope Gastrointestinal/Abdominal: States: see HPI, abdominal pain, nausea, vomiting. Denies: constipation, diarrhea Genitourinary: States: no symptoms reported. Denies: discharge, dysuria, frequency Musculoskeletal: States: no symptoms reported. Denies: back pain, joint pain, neck pain Skin: States: no symptoms reported. Denies: change in color, rash Neurological: States: see HPI, weakness. Denies: anxiety, depressed, numbness, paresthesia Endocrine: States: no symptoms reported. Denies: increased hunger, increased thirst, increased urine Hematologic/Lymphatic: States: no symptoms reported All other Systems: No Change from Baseline Past Medical History (General) - Patient Medical History Hx Seizures: No Hx Stroke: No Hx Dementia: No Hx Asthma: Yes Hx of COPD: No Hx Cardiac Disorders: No Hx Congestive Heart Failure: No Hx Pacemaker: No Hx Hypertension: Yes Hx Thyroid Disease: No Hx Diabetes: No Hx Gastroesophageal Reflux: Yes Hx Renal Disease: No Hx Cancer: No Hx of HIV: No Hx Hepatitis C: No Hx MRSA: No Surgical History: colectomy, other - Vaccination History Hx Tetanus, Diphtheria Vaccination: Yes Hx Influenza Vaccination: Yes Hx Pneumococcal Vaccination: Yes - Social History Hx Tobacco Use: No Hx Chewing Tobacco Use: No Hx Alcohol Use: No Hx Substance Use: No Hx Substance Use Treatment: No Hx Depression: No Hx Physical Abuse: No Hx Emotional Abuse: No Hx Suspected Abuse: No - Female History Patient : No Family Medical History - Family History Father Family History: No Known Living Status: Hx Family Asthma: Yes - copd Physical Exam - Physical Exam General Appearance: Alert, Anxious, Frail, Unkempt, Well Developed, Well Nourished Eye Exam: bilateral normal Ears, Nose, Throat: hearing grossly normal, normal ENT inspection, normal pharynx - except dry mucous membranes Neck: non-tender, full range of motion, supple Respiratory: chest non-tender, lungs clear, normal breath sounds, no respiratory distress Cardiovascular/Chest: normal peripheral pulses, regular rate, rhythm, no edema, no gallop, no JVD, no murmur Peripheral Pulses: radial,right: 2+, radial,left: 2+ Gastrointestinal/Abdominal: soft, tenderness - RLQ, other - healing surgical incisions. RLQ drain in place. 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 12/16/19 12:36 Patient's labs and CTs are returned. CT has old abscess cavity and the catheter is in the abscess cavity but is not draining as it is not placed in the dependent portion of the cavity. Additionally there is a new wall abscess. I discussed these findings with Dr. Han and Rafat Downing, JE[facility]AUDE and we will admit the patient for IV antibiotics and replacement of the abscess drain. I discussed this plan of care with the patient and his daughter and they voiced understanding and agreement with the plan of care. Gopi Krishna M.D. #[id number] - Results/Orders Results/Orders: 12/16/19 09:19 IV Care:Saline Lock per Protoc QSHIFT Sodium Chloride 0.9% (Flush) [Saline Flush Syringe] 10 ml IV PRN PRN 12/16/19 09:20 Hold Metformin x 48Hrs [id number] 12/16/19 09:38 BLOOD CULTURE Stat Laboratory Results - last 24 hr 12/16/19 12/16/19 12/16/19 09:30 09:30 09:30 WBC 7.0 RBC 3.45 L Hgb 9.2 L Hct 27.9 L MCV 81.0 MCH 26.6 L MCHC 32.9 L RDW 15.5 H Plt Count 377 MPV 7.9 Absolute Neuts (auto) 5.00 Absolute Lymphs (auto) 0.90 L Absolute Monos (auto) 0.80 Absolute Eos (auto) 0.20 Absolute Basos (auto) 0.10 Neutrophils % 71.3 Lymphocytes % 12.6 L Monocytes % 11.5 H Eosinophils % 3.2 Basophils % 1.4 Sodium 135 Potassium 4.0 Chloride 100 L Carbon Dioxide 26 Anion Gap 13.0 BUN 14 Creatinine 1.19 BUN/Creatinine Ratio 11.8 Random Glucose 102 Serum Osmolality 270.8 L Calcium 8.6 Total Bilirubin 0.9 Direct Bilirubin 0.1 Indirect Bilirubin 0.8 AST 20 ALT 14 Alkaline Phosphatase 61 Serum Total Protein 6.4 Albumin 2.6 L Lipase 46 Urine Color Urine Appearance Urine pH Ur Specific Bluebell Urine Protein Urine Glucose (UA) Urine Ketones Urine Blood Urine Nitrite Urine Bilirubin Urine Urobilinogen Ur Leukocyte Esterase Urine RBC Urine WBC Ur Epithelial Cells Urine Bacteria 12/16/19 10:32 WBC RBC Hgb Hct MCV MCH MCHC RDW Plt Count MPV Absolute Neuts (auto) Absolute Lymphs (auto) Absolute Monos (auto) Absolute Eos (auto) Absolute Basos (auto) Neutrophils % Lymphocytes % Monocytes % Eosinophils % Basophils % Sodium Potassium Chloride Carbon Dioxide Anion Gap BUN Creatinine BUN/Creatinine Ratio Random Glucose Serum Osmolality Calcium Total Bilirubin Direct Bilirubin Indirect Bilirubin AST ALT Alkaline Phosphatase Serum Total Protein Albumin Lipase Urine Color Yellow Urine Appearance Clear Urine pH 6.0 Ur Specific Bluebell 1.010 Urine Protein Negative Urine Glucose (UA) Negative Urine Ketones Negative Urine Blood Negative Urine Nitrite Negative Urine Bilirubin Negative Urine Urobilinogen 0.2 Ur Leukocyte Esterase Negative Urine RBC 0-1 Urine WBC 1-3 Ur Epithelial Cells 0-1 Urine Bacteria Rare EXAM DESCRIPTION: Abdomen/Pelvis w/Contrast: Computed Tomography. CLINICAL HISTORY: 79 years Male pain and fever s/p abd surgery. Inflammatory fluid collection with drainage catheter. Drainage catheter not draining. COMPARISON: CT scan of the abdomen and pelvis with IV contrast December 07. TECHNIQUE: Spiral-axial scans at 5 mm intervals through the abdomen and pelvis, after nonionic IV contrast oral contrast. Coronal and sagittal 2.0 mm reconstructions. Axial-spiral 5mm. No adverse reactions. Total Exam DLP: 1016 mGy-cm. This exam was performed according to our departmental dose-optimization program which includes automated exposure control, adjustment of the mA and/or kV according to patient size and/or use of iterative reconstruction technique; to reduce radiation dose to as low as reasonably achievable (ALARA). FINDINGS: Pelvic cavity: Inflammatory fluid collection again noted in the right lower quadrant of the abdomen extending into the midline pelvis above the urinary bladder and abutting the sigmoid colon distal to the anastomosis. The collection has essentially 2 compartments taken by 3 cm channel. The superior right compartment measuring 5.2 x 5.0 cm in the transverse plane and 5.4 cm in the coronal plane. On the prior study, this compartment measured approximately 7.1 x 6.0 cm transverse plane, and 7.2 cm coronal plane; more smaller air pockets. The inferior medial compartment measures 3.9 x 4.7 cm in the transverse plane and 2.4 cm in the coronal plane. On the prior study, this compartment measured 5.6 x 5.2 cm in the transverse plane and 3.2 cm in the coronal plane. The wall of this collection is thicker and better defined in both compartments compared to the prior study. The distal pigtail tip of the drainage catheter is in approximately the same location as on the prior study, still within the abscess collection, but abutting the anterior right lateral wall. Fatty stranding and fascial thickening surrounding both compartments. Pelvic organs: Urinary bladder distended with no radiodense stones. No free fluid in the anterior peritoneal reflection. Fascial thickening and fatty stranding adjacent to the sigmoid colon, abscess cavity. Prostate gland abutting the base of the urinary bladder. Small Bowel: Normal caliber with minimal distention distally and small air-fluid levels, greatest distention is just proximal to the terminal ileum. No obstruction.. Terminal Ileum/Cecum: Terminal ileum is distended with wall thickening in adjacent fatty stranding and is abutting the superior right aspect of the abscess collection. Ileocecal valve is unremarkable. Normal caliber of the cecum. No free fluid in the right paracolic gutter. Colon: Minimal fecal matter and gas proximal and mid colon with no air-fluid levels. Descending colon compressed. Minimal fatty stranding and mild mucosal thickening of the sigmoid colon. Stable appearance of anastomosis. Small air pockets in the mesentery on the superior medial aspect and superior aspect of the anastomosis, stable since the prior study with no air-fluid levels.. Lung bases and pleura: Bilateral pleural thickening and minimal atelectasis in the adjacent bases. Effusion is decreased on the right since the prior study Liver, Stomach, Spleen, Adrenal Glands: Stable hepatic cysts and enhancement of the remaining organ. No change in appearance of the stomach spleen and adrenal glands. Pancreas, Gallbladder, Ducts: Gallbladder distended with wall thickening and sludge. Normal caliber of the common bile duct. Fatty pancreas stable. Kidneys and Ureters: 3 stable cysts left kidney and 4.5 mm stone in the upper collecting system with no hydronephrosis. Minimal distention of the lower collecting system of the right kidney more than the upper collecting system. 3 mm stone in the upper collecting system of the knee is not visualized in the ureter which is slightly distended proximally, along with the renal pelvis. Mesentery: Please see above. Aorta: Moderate atherosclerotic calcification and tortuosity with calcification of the ostia several major branch vessels. No aneurysm. Spine and Bony Pelvis: Thoracolumbar levoscoliosis. Spondylosis as previously noted with disc bulging L4-L5 and L5-S1 minimal bulging L3-L4. Minimal hypertrophy of the bilateral acetabula. Abdominal Wall/Back Soft Tissues: Prior midline abdominal pelvic surgery site. Drainage catheter entry site unremarkable. However, small air- fluid level in the adipose tissue with irregular enhancing and thickening of the abdominal wall and muscle posterior to the air-fluid level. Margins are ill- defined in the muscle does not approximate dimensions are 3.1 x 2.9 cm in the transverse plane and 1.8 cm sagittal plane. No definite communication with the drainage catheter insertion site. IMPRESSION: 1. Abscess/inflammatory fluid collection in the right lower quadrant of the abdomen and pelvis and midline pel vis has decreased slightly in size since the prior study. 2 compartments again noted. Capsule/wall of the collections is thicker and more well-defined since the prior study. Distal catheter pigtail tip is stable in location since the prior study, not located in the gravity dependent region of the collection. 2. Developing abscess, 3.1 cm greatest diameter, in the subcutaneous tissue and anterior muscle wall of the right anterior pelvis just below the entry site for the drainage catheter. 3. Minimal hydronephrosis right kidney. Proximal right hydroureter, prior stone in the upper right collecting system on the prior study no longer seen. No radiodense stones seen in the mid or distal right ureter or the urinary bladder. Stable stone in the left kidney and stable cysts. 4. Stable appearance of sigmoid colon anastomosis site, surrounding inflammatory changes with small pockets of air. No direct connection to the abscess/inflammatory collection demonstrated. CRITICAL COMMUNICATION: The critical value was communicated directly by Dr. Min via phone call, with Dr. Gopi Krishna, of Emergency Medicine, at approximately 1210 hours, on December 16, 2019. Electronically signed by: Ridge Min MD 12/16/2019 12:21 PM Vital Signs 12/16/19 12/16/1920 08:32 09:30 10:30 Temperature 97.6 F Pulse Rate [ 73 88 76 left brachial] Respiratory 20 18 18 Rate Blood Pressure 110/65 107/63 111/69 [left brachial] O2 Sat by Pulse 96 93 L 97 Oximetry 12/16/19 11:30 Temperature Pulse Rate [ 77 left brachial] Respiratory 16 Rate Blood Pressure 113/67 [left brachial] O2 Sat by Pulse 96 Oximetry Departure - Departure Clinical Impression: Peritoneal abscess Fever Qualifiers: Fever type: unspecified Qualified Code(s): R50.9 - Fever, unspecified Time of Disposition: 12:43 Disposition: Admit Patient Condition: Good Departure Forms: ED Discharge - Pt. Copy, Patient Portal Self Enrollment Diet: resume usual diet Activity: increase activity as tolerated Referrals: Eros Anaya MD [Primary Care Provider] - 1-2 Weeks Home Medications: Ambulatory Orders Omeprazole [Prilosec Cap] 20 mg PO DAILY 03/08/16 Misc Natural Products [Cholesterol Relief] 1 cap PO DAILY 10/05/19 Lisinopril 10 mg PO DAILY 11/18/19 Temazepam [Restoril] 15 mg PO BEDTIME PRN #7 cap 11/25/19 Ondansetron [Ondansetron Odt] 4 mg PO Q6H #20 tab 11/29/19 Amoxicillin & Pot Clavulanate [Augmentin Tab] 875 mg PO BID #36 tab 12/07/19 Bifidobacterium Infantis [Align] 4 mg PO BID cap 12/07/19 Ondansetron Odt [Zofran Odt] 4 mg SL Q4H PRN tab 12/07/19 Decision To Admit - Decistion To Admit Decision to Admit Date: 12/16/19 Decision to Admit Time: 12:15
[2019-12-16] MEDS ORDERED: LACTATED RINGERS 1,000 ML IVS ONE (10:31)
--- NOTE | 2019-12-16 12:22 | CT ---
EXAM DESCRIPTION: Abdomen/Pelvis w/Contrast: Computed Tomography. CLINICAL HISTORY: 79 years Male pain and fever s/p abd surgery. Inflammatory fluid collection with drainage catheter. Drainage catheter not draining. COMPARISON: CT scan of the abdomen and pelvis with IV contrast December 07. TECHNIQUE: Spiral-axial scans at 5 mm intervals through the abdomen and pelvis, after nonionic IV contrast oral contrast. Coronal and sagittal 2.0 mm reconstructions. Axial-spiral 5mm. No adverse reactions. Total Exam DLP: 1016 mGy-cm. This exam was performed according to our departmental dose-optimization program which includes automated exposure control, adjustment of the mA and/or kV according to patient size and/or use of iterative reconstruction technique; to reduce radiation dose to as low as reasonably achievable (ALARA). FINDINGS: Pelvic cavity: Inflammatory fluid collection again noted in the right lower quadrant of the abdomen extending into the midline pelvis above the urinary bladder and abutting the sigmoid colon distal to the anastomosis. The collection has essentially 2 compartments taken by 3 cm channel. The superior right compartment measuring 5.2 x 5.0 cm in the transverse plane and 5.4 cm in the coronal plane. On the prior study, this compartment measured approximately 7.1 x 6.0 cm transverse plane, and 7.2 cm coronal plane; more smaller air pockets. The inferior medial compartment measures 3.9 x 4.7 cm in the transverse plane and 2.4 cm in the coronal plane. On the prior study, this compartment measured 5.6 x 5.2 cm in the transverse plane and 3.2 cm in the coronal plane. The wall of this collection is thicker and better defined in both compartments compared to the prior study. The distal pigtail tip of the drainage catheter is in approximately the same location as on the prior study, still within the abscess collection, but abutting the anterior right lateral wall. Fatty stranding and fascial thickening surrounding both compartments. Pelvic organs: Urinary bladder distended with no radiodense stones. No free fluid in the anterior peritoneal reflection. Fascial thickening and fatty stranding adjacent to the sigmoid colon, abscess cavity. Prostate gland abutting the base of the urinary bladder. Small Bowel: Normal caliber with minimal distention distally and small air-fluid levels, greatest distention is just proximal to the terminal ileum. No obstruction.. Terminal Ileum/Cecum: Terminal ileum is distended with wall thickening in adjacent fatty stranding and is abutting the superior right aspect of the abscess collection. Ileocecal valve is unremarkable. Normal caliber of the cecum. No free fluid in the right paracolic gutter. Colon: Minimal fecal matter and gas proximal and mid colon with no air-fluid levels. Descending colon compressed. Minimal fatty stranding and mild mucosal thickening of the sigmoid colon. Stable appearance of anastomosis. Small air pockets in the mesentery on the superior medial aspect and superior aspect of the anastomosis, stable since the prior study with no air-fluid levels.. Lung bases and pleura: Bilateral pleural thickening and minimal atelectasis in the adjacent bases. Effusion is decreased on the right since the prior study Liver, Stomach, Spleen, Adrenal Glands: Stable hepatic cysts and enhancement of the remaining organ. No change in appearance of the stomach spleen and adrenal glands. Pancreas, Gallbladder, Ducts: Gallbladder distended with wall thickening and sludge. Normal caliber of the common bile duct. Fatty pancreas stable. Kidneys and Ureters: 3 stable cysts left kidney and 4.5 mm stone in the upper collecting system with no hydronephrosis. Minimal distention of the lower collecting system of the right kidney more than the upper collecting system. 3 mm stone in the upper collecting system of the knee is not visualized in the ureter which is slightly distended proximally, along with the renal pelvis. Mesentery: Please see above. Aorta: Moderate atherosclerotic calcification and tortuosity with calcification of the ostia several major branch vessels. No aneurysm. Spine and Bony Pelvis: Thoracolumbar levoscoliosis. Spondylosis as previously noted with disc bulging L4-L5 and L5-S1 minimal bulging L3-L4. Minimal hypertrophy of the bilateral acetabula. Abdominal Wall/Back Soft Tissues: Prior midline abdominal pelvic surgery site. Drainage catheter entry site unremarkable. However, small air-fluid level in the adipose tissue with irregular enhancing and thickening of the abdominal wall and muscle posterior to the air-fluid level. Margins are ill-defined in the muscle does not approximate dimensions are 3.1 x 2.9 cm in the transverse plane and 1.8 cm sagittal plane. No definite communication with the drainage catheter insertion site. IMPRESSION: 1. Abscess/inflammatory fluid collection in the right lower quadrant of the abdomen and pelvis and midline pelvis has decreased slightly in size since the prior study. 2 compartments again noted. Capsule/wall of the collections is thicker and more well-defined since the prior study. Distal catheter pigtail tip is stable in location since the prior study, not located in the gravity dependent region of the collection. 2. Developing abscess, 3.1 cm greatest diameter, in the subcutaneous tissue and anterior muscle wall of the right anterior pelvis just below the entry site for the drainage catheter. 3. Minimal hydronephrosis right kidney. Proximal right hydroureter, prior stone in the upper right collecting system on the prior study no longer seen. No radiodense stones seen in the mid or distal right ureter or the urinary bladder. Stable stone in the left kidney and stable cysts. 4. Stable appearance of sigmoid colon anastomosis site, surrounding inflammatory changes with small pockets of air. No direct connection to the abscess/inflammatory collection demonstrated. CRITICAL COMMUNICATION: The critical value was communicated directly by Dr. Min via phone call, with Dr. Gopi Krishna, of Emergency Medicine, at approximately 1210 hours, on December 16, 2019. Electronically signed by: Ridge Min MD 12/16/2019 12:21 PM CDT
--- NOTE | 2019-12-16 13:16 | HP ---
SUPERVISING PHYSICIAN: Eros Anaya M.D. CHIEF COMPLAINT: Fever. HISTORY OF PRESENT ILLNESS: Mr. David is a 79 year-old male patient that has a past medical history of recent colectomy with development of a abscess that is being treated as an outpatient. He is on long term care administrator antibiotics in the form of Invanz. He has been doing fairly well, but has not had much of an appetite. He endorses that he has been having some nausea and some associated vomiting, but last night developed worsening general malaise with a subjective fever reported at 101 last night by his daughter. He still has a drain in place in the right lower quadrant. Initial workup in the Emergency Room included a CT of the abdomen and pelvis with contrast and per radiology interpretation again showed an abscess, inflammatory fluid collection in the right lower quadrant. There was also note of a developing abscess less than 3.1 cm in diameter in the subcutaneous tissue anterior muscle wall of the right anterior pelvis just below the entry site of the drainage catheter. His labs were showing a normal white count of 7,000 without a left shift. Hemoglobin and hematocrit from previous records showing having a stable hemoglobin and hematocrit at 9.2 and 27.9 respectively. Chemistries on initial exam showed normal electrolytes with a BUN 14, creatinine 1.19. Liver functions were all within normal limits. C reactive protein was 10.6 which was 10.9 on 12/05/19. Lipase was normal. Urinalysis was within normal limits. Dr. Davis was consulted in the Emergency Room based off findings of the CT. Dr. Davis requested the patient be placed in observation overnight in anticipation of doing a percutaneous drainage of the abscess and replacement of the drainage tube with CT guided assistance. The patient was placed in observation in stable condition. PAST MEDICAL HISTORY: 1. Hypertension. 2. Gastroesophageal reflux disease. PAST SURGICAL HISTORY: 1. Sigmoid colectomy with appendectomy and intraoperative bladder repair for complications due to abscess in November of this year. 2. Hernia repair. 3. Hemorrhoidectomy. MEDICATIONS: 1. Invanz 1 gram every 24 hours. 2. Prilosec 20 mg daily. 3. Lisinopril 10 mg daily. ALLERGIES: CODEINE, LEVOFLOXACIN, METRONIDAZOLE AND TRAMADOL. FAMILY HISTORY: Father at age 70 from a heart attack. Mother at age 75 from complications of a hip surgery. SOCIAL HISTORY: The patient is a nondrinker, nonsmoker. Denies any illicit drug use. REVIEW OF SYSTEMS: CONSTITUTIONAL: As noted in History of Present Illness, subjective fever with general malaise and chills with unintentional weight loss over the last several months resulting from abdominal surgery and lack of appetite. HEENT: Denies any headaches, vision changes, ear aches, sore throat, nasal congestion. RESPIRATORY: Denies any coughing, wheezing or shortness of breath, pleuritic pain, hemoptysis. CARDIOVASCULAR: Denies any chest pains, palpitations, peripheral edema or syncopal episodes. GASTROINTESTINAL: As noted in History of Present Illness, some associated nausea and vomiting intermittently. No real describable abdominal pains other than just some tenderness over the drainage site. GENITOURINARY: Denies any dysuria, hematuria, polyuria. ENDOCRINE: No polydipsia, polyphagia or polyuria. No heat or cold intolerance. MUSCULOSKELETAL: No joint pain, joint swelling or muscle cramps. NEUROLOGIC: Denies any paresthesias, seizures, ataxia or syncopal episodes. PHYSICAL EXAMINATION: VITAL SIGNS: On admission, temperature 98.2, pulse 70, blood pressure 111/71, respirations 16, satting 97% on room air. GENERAL: The patient looks frail and unkempt. Does appear tired but does not look to be in any distress at time of exam. He is much thinner in appearance than previous admissions. Looks a little dehydrated. HEENT: Tympanic membranes clear bilaterally. Oropharynx is pink with dry mucosa membranes. There are no lesions noted. NECK: Supple, nontender with full range of motion. No jugular venous distention noted. CHEST: Lungs are clear to auscultation bilaterally without any rhonchi, wheezes or rales. HEART: Regular rate and rhythm without any appreciable murmurs, gallops, or rubs. ABDOMEN: Soft. Positive bowel sounds. There is a drain in place which is a little red around the exit site of the drain on the right lower quadrant. There are still annabel remaining in place over the incision which look to be without any obvious infection. BACK: Without any CVA or vertebral tenderness. EXTREMITIES: Without any clubbing, cyanosis or edema. NEUROLOGIC: He is alert and oriented times three. Cranial nerves II-XII are grossly intact. SKIN: Warm, pink and dry. He does look a little pale. LABORATORY: White count 7,000, hemoglobin 9.2, hematocrit 27.9, platelet count 377,000. Differential shows to be without a left shift. Chemistries show normal electrolytes with BUN 14, creatinine 1.19, calcium 8.6. Bilirubin normal. All other liver functions are within normal limits. C reactive protein was 10.6 which is actually down from 12/03/19 at 14.3. Serum protein 6.4 with albumin at 2.6. Lipase was normal at 46. Urinalysis was within normal limits. MICROBIOLOGY: Blood cultures were drawn and pending. RADIOLOGY: Abdomen and pelvis with contrast again showed abscess or inflammatory fluid collection in the right lower quadrant of the abdomen and pelvis and midline pelvis which is decreased slightly in size since previous study. Compartments again were noted. There is also a capsule/wall of the collection that is thicker and more well-defined than previous studies. The Distal catheter pigtail tip is stable in location since previous study but not located in the gravity dependent region of the collection. There is also note of a developing abscess measuring 3.1 cm in greatest diameter in the subcutaneous tissue and anterior muscle wall of the right anterior pelvis just below the entry site of the drainage catheter. There is note of minimal hydronephrosis of the right kidney with proximal right hydroureter and prior stone in the upper right collecting system on prior exam that is no longer seen. There is no radiodense stones in the mid and distal right ureter or the urinary bladder. There is a stable stone in the left kidney and stable cysts. The sigmoid colon anastomosis site is noted to be stable in appearance with surrounding inflammatory changes with a small pocket of air. There is no direct connection to the abscess/inflammatory collection demonstrated. This report is per radiology interpretation. Please see that final report for details. ASSESSMENT: 1. Pelvic abscess status post sigmoid colectomy with drain in place pending percutaneous CT guided needle biopsy/drainage. 2. Intractable nausea likely secondary to #1. 3. Mild dehydration secondary to #2. 4. Anemia but showing to be stable, microcytic hypochromic, likely due to ongoing increasing malnutrition. 5. Continued chronic protein calorie malnutrition due to poor oral intake. 6. Chronic hypertension that is stable. PLAN: The patient is going to be placed in observation tonight for continued antibiotics as he is significantly weakened and does need to be hydrated, therefore will go ahead and put him on some IV fluids. I did talk to Dr. Davis. The plan tomorrow is a percutaneous drainage via CT guidance and possible replacement of the drainage tube. Will hold off on Lovenox tonight until after the procedure in the morning. He is on a mechanical soft diet. Given his nutritional status and dehydration, I will go ahead and give him a multivitamin infusion with some folic acid. He will need further workup in outpatient for his microcytic anemia. Anticipate length of stay to be 1 to 2 days. Hopefully be able to discharge later tomorrow if not Friday after drainage of the ongoing abscess in the right lower quadrant. Until we can transition to outpatient management will continue to monitor and treat as needed. #[id number] [facility]
[2019-12-16] MEDS ORDERED: ALUM & MAG HYDROX-SIMETHICONE 30 ML UD PO PRN (13:24)
[2019-12-16] MEDS ORDERED: MAGNESIUM HYDROXIDE 30 ML UD PO PRN (13:24)
[2019-12-16] MEDS ORDERED: ONDANSETRON INJ 4 MG/2 ML VIAL IV PRN (13:24)
[2019-12-16] MEDS ORDERED: ACETAMINOPHEN 325 MG TAB PO PRN (13:24)
[2019-12-16] MEDS ORDERED: IV SET AND CAP CHANGE INJ INJ SCH (13:30)
[2019-12-16] MEDS ORDERED: MULTIPLE VITAMIN INJ 10 ML, FOLIC ACID INJ 1 MG in SODIUM CHLORIDE 0.9% 1000ML 1,000 ML IVS ONE (14:00)
[2019-12-16] MEDS: ERTAPENEM 1 GM in SODIUM CHL 0.9% 50ML MIN-BAG+ 50 ML IVPB SCH (14:05)
[2019-12-16] MEDS ORDERED: SODIUM CHLORIDE 0.9% 1000ML 1,000 ML ONE (14:23)
[2019-12-16] MEDS ORDERED: MULTIPLE VITAMIN 10 ML VIAL ONE (14:23)
[2019-12-16] MEDS ORDERED: FOLIC ACID INJ 5 MG/ML VIAL ONE (14:46)
[2019-12-16] MEDS ORDERED: METOCLOPRAMIDE HCL INJ 10 MG/2 ML VIAL IV ONE (15:48)
[2019-12-16] MEDS ORDERED: AMOXICILLIN & POT CLAVULANATE 875 MG TAB PO SCH (21:00)
[2019-12-17] MEDS ORDERED: OMEPRAZOLE CAP 20 MG CAP ONE (05:16)
[2019-12-17] MEDS: OMEPRAZOLE CAP 20 MG CAP PO SCH (05:58)
[2019-12-17] MEDS: LISINOPRIL 10 MG TAB PO SCH (09:15)
[2019-12-17] MEDS: BIFIDOBACTERIUM INFANTIS 4 MG CAP PO SCH (09:15)
[2019-12-17] MEDS: AMOXICILLIN & POT CLAVULANATE 875 MG TAB PO SCH ×2 (10:00→20:56)
[2019-12-17] MEDS: ERTAPENEM 1 GM in SODIUM CHL 0.9% 50ML MIN-BAG+ 50 ML IVPB SCH (13:39)
--- NOTE | 2019-12-17 14:26 | US ---
EXAM DESCRIPTION: Soft Tissue,Abdomen: ULTRASOUND. CLINICAL HISTORY: CATH PLACEMENT. Decreased drainage from abscess catheter. Ultrasound prior to procedure to change catheter position. COMPARISON: CT scan of abdomen and pelvis with contrast December 15. Fluoroscopic-guided catheter placement and postplacement CT scan abdomen and pelvis without IV contrast on this visit. TECHNIQUE: Transabdominal scanning: larsen-scale mode. Doppler mode. FINDINGS: Scanning over the right lower quadrant of the abdomen and pelvis and inferior midline pelvis. The catheter is visualized within the superior lateral compartment of the collection. It remains coiled in position. Scanning over the lower medial compartment surrounds the a segment of the catheter advancing into the compartment with downward pressure on the catheter at the skin surface. IMPRESSION: The drainage catheter remains coiled within the superior lateral compartment of the inflammatory/abscess fluid collection, but a segment of the catheter could be advanced into the lower medial compartment. Electronically signed by: Ridge Min MD 12/17/2019 2:24 PM CDT
--- NOTE | 2019-12-17 15:42 | CT ---
EXAM DESCRIPTION: Abdoment/Pelvis w/o Contrast: Computed Tomography. CLINICAL HISTORY: 79 years Male abdominal abcess. Replacement of drainage catheter into the abscess and injection of Gastrografin contrast prior to CT scan. COMPARISON: Fluoroscopic guided placement of drainage catheter and ultrasound of the pelvic soft tissues on this visit. CT scan abdomen and pelvis with IV contrast December 15. TECHNIQUE: Spiral-axial scans 2.5 x 2.5 mm intervals through the abdomen and pelvis without oral or IV contrast, after placement of drainage catheter in inflammatory fluid collection in the pelvis and injection of 20 cc Gastrografin contrast through the catheter into the collection. Coronal and sagittal 2.0 mm reconstructions. Total Exam DLP: 1258 mGy-cm. This exam was performed according to our departmental CT dose-optimization program which includes automated exposure control, adjustment of the mA and/or kV according to patient size and/or use of iterative reconstruction technique; to reduce radiation dose to as low as reasonably achievable (ALARA). FINDINGS: Pelvis Soft tissues: Again visualized is a bilobed inflammatory/abscess collection in the right lower quadrant of the abdomen and pelvis and midline inferior pelvis superior to the urinary bladder. This collection is abutting terminal ileum, cecum, sigmoid colon, in the dome of the urinary bladder. Margins are somewhat obscured by scatter artifact from the Gastrografin contrast. The deployed pigtail tip of the replacement 10 English drainage catheter is visualized within the channel between the larger anterior- superior-lateral compartment and the smaller [id number] compartment. Minimal extensions of contrast are noted on the medial posterior aspect of the smaller compartment. No large compartments of contrast extravasation or complex fluid collection are abutting the 2 compartments. Also again noted is a small abscess in the anterior abdominal wall and the anterior wall musculature superior and lateral to the catheter entry site, containing contrast material and air-fluid level. Possible tract from this abscess inferiorly to an extension of contrast material from the abscess cavity on the superior and lateral aspect,, superior to the catheter entry into the collection, best seen on axial series 2, images 141-146. There is thickened tissue and fatty stranding between this tract and the cecum and distended terminal ileum. Small Bowel: Unremarkable except for minimal distention distally at the terminal ileum. Terminal Ileum/Cecum: Thickening of the terminal ileum as described with inferior fatty stranding and scar tissue between the terminal ileum and the superior abscess/inflammatory collection. Terminal ileum is nondistended Colon: Mostly gas and minimal fecal matter proximal and mid colon and proximal descending colon. Diverticula in the distal descending colon and minimal wall thickening and thickening of the right paracolic gutter. Narrowing of the proximal sigmoid colon at the anastomosis with surrounding fascial thickening and fatty stranding. Thickening of the sigmoid colon matthew. Small pockets of free air in the adjacent mesentery, superior and posterior to the anastomosis as previously described. No contrast from the abscess/inflammatory collection communicating with the lumen of the sigmoid colon. Distal sigmoid colon and rectum demonstrating normal wall caliber. Pelvic Organs: Moderate distention of the urinary bladder with minimal wall thickening. Prostate gland impressing on the base of the urinary bladder. No free fluid or congestion or definite contrast in the anterior peritoneal reflection. No radiodense stones in the urinary bladder. Lung bases and pleura: Stable since prior CT yesterday. Liver, stomach, spleen, and adrenal glands: No interval change. Pancreas, Gallbladder, and Ducts: Stable Kidneys and Ureters: Residual contrast from the prior study with stone in the upper collecting system on the left but no hydronephrosis. Hydronephrosis has resolved in the right kidney since the prior study. Mesentery: Fatty thickening stranding and fascial thickening and small pockets of free air in the lower abdomen and pelvis as previously described with no interval change. Aorta: Moderate atherosclerotic calcification with normal outer caliber. Spine and Bony Pelvis: Stable. Abdominal Wall/Back Soft Tissues: Abdominal wall soft tissues unremarkable. Please see discussion of pelvic wall soft tissues of the left. IMPRESSION: 1. Replacement drainage catheter into abscess/inflammatory collection with position more optimal compared to the prior drainage catheter. Distribution of Gastrografin which was injected through the replacement catheter showing no intra-abdominal or intrapelvic, or enteric fistulas or additional abscess/inflammatory collections associated with the main collection. Volume of both compartments of the collection is also decreased compared to the prior study. However, probable fistula from the superior lateral anterior collection, superior to the catheter abscess entry site, extending to the skin lateral to the catheter skin entry site. 2. Minimal distention of the distal and terminal ileum from the abscess collection by possible inflammatory tissue. Stable since the prior study. Sigmoid colon anastomotic site shows wall thickening and narrowing and surrounding inflammatory changes but stable since the prior study. 3. Resolution of mild right hydronephrosis and proximal right hydroureter since the prior study one day earlier. CRITICAL COMMUNICATION: The critical value was communicated directly by Dr. Min in-person meeting, with COLLEEN De Luna, at approximately 1525 hours, on December 17, 2019. Electronically signed by: Ridge Min MD 12/17/2019 3:40 PM CDT
--- NOTE | 2019-12-17 15:52 | RAD ---
EXAM DESCRIPTION: Fluoroscopic guided drainage catheter placement: RF. CLINICAL HISTORY: 79 years Male, CATH PLACEMENT. Decreasing drainage from catheter placed in inflammatory/abscess collection on November 29. Patient with occasional nausea and vomiting and fever. Catheter tip confirmed to be located within the collection on CT scan December 15. COMPARISON: Ultrasound pelvis and soft tissues and CT scan abdomen and pelvis post-catheter placement on this visit. TECHNIQUE: The procedure was performed by Dr. Min. Patient in supine position on the fluoroscopic table. Sterile preparation of the entry site of recurrent abscess drainage catheter and hardware and surrounding skin. The existing 25 cm, 10 Kinyarwanda drainage catheter was disconnected from the drainage bag and skin dressings. Under fluoroscopic visualization, an attempt was made to move the distal pigtail of the drainage catheter more inferior and medially in the abscess inflammatory collection. This was unsuccessful. Attempt to pass a 0.038 guidewire injection port of the catheter without success. The pigtail was unlocked, and the guidewire could be passed through the catheter into the abscess collection. The catheter was then advanced over the guidewire into the more inferior and medial collection. The locking string could not be accessed, so the pigtail could not be deployed. The existing catheter was then withdrawn from the abscess collection with the guidewire remaining in place. A new 25 cm 10 Kinyarwanda locking pigtail catheter was advanced over the guidewire into the abscess collection. The wire was withdrawn, and the pigtail was deployed and locked in place. Approximately 20 mL of Gastrografin contrast was injected through the catheter into the cavity. Contrast extends a short distance superior and inferior to the matthew of the main collection, but no significant other collection is noted. Some of the blood-tinged contrast exits the abdominal wall through a small fistula 2 cm lateral/superior to the catheter entrance. The patient was transferred to the CT suite in stable condition. Nine Frontal images were recorded. Total fluoroscopic time was 4.5 minutes. FINDINGS: Images show the original drainage catheter, guidewire, and replacement drainage catheter within the abscess fluid collection. Images also showing the Gastrografin within the catheter and the abscess collection. Contrast can be seen in the fistula lateral and superior to the catheter entry site overlying the right acetabulum. IMPRESSION: Successful, fluoroscopic-guided replacement of abscess/inflammatory collection drainage catheter in the right lower quadrant of the abdomen and anterior midline pelvis. Procedure performed by Dr. Min. Please refer to post- replacement CT scan of the abdomen and pelvis. Electronically signed by: Ridge Min MD 12/17/2019 3:50 PM CDT
[2019-12-17] MEDS ORDERED: ENOXAPARIN SODIUM 40 MG/0.4 ML SYG SUBCU SCH (21:00)
[2019-12-18] MEDS: OMEPRAZOLE CAP 20 MG CAP PO SCH (06:09)
[2019-12-18] MEDS: LISINOPRIL 10 MG TAB PO SCH (09:01)
[2019-12-18] MEDS: AMOXICILLIN & POT CLAVULANATE 875 MG TAB PO SCH (09:01)
[2019-12-18] MEDS: BIFIDOBACTERIUM INFANTIS 4 MG CAP PO SCH (09:01)
--- NOTE | 2019-12-18 09:24 | PN ---
SUPERVISING PHYSICIAN: Eros Anaya MD DATE: 12/17/19 SUBJECTIVE: The patient had another percutaneous drainage of that abscess in the right lower quadrant. He had a little tough time with some pain management but he has been doing well since. He did run 101 fever shortly after that within the 4-hour period time and had some other complaints. He doesn't have much of an appetite but not having any nausea or vomiting since he has been in the hospital. OBJECTIVE: VITAL SIGNS: T-max 101.2, pulse 106, blood pressure 110/69, respirations 16, oxygen saturation 95% on room air. GENERAL: The patient looks tired, does not appear to be in any distress. He is very stoic and very flat in his affect. CHEST: Clear to auscultation bilaterally. HEART: Regular rate and rhythm. ABDOMEN: Soft with some tenderness noted down in the area of the right quadrant associated with the drain. His annabel are still in place. Drainage from that tube shows to be sanguinous in nature. Bowel sounds are active. EXTREMITIES: Without edema. NEUROLOGICAL: He is alert and oriented x 3. LABORATORY: No additional laboratory studies today. RADIOLOGY: He had multiple radiology studies due to the percutaneous drainage. Please that those reports. They have been reviewed. We did talk to Dr. Min who said they had removed about 10 to 12 cc of drainage total. Cultures were sent. ASSESSMENT: 1. Pelvic abscess status post sigmoid colectomy with status post percutaneous drainage and replacement of pigtail with cultures pending. 2. Intractable nausea likely secondary to #1, showing some slightly improvement. 3. Fever after percutaneous drainage with no obvious signs of sepsis with patient remaining on Invanz for antibiotic coverage. 4. Mild dehydration showing improvement with fluids. 5. Stable anemia with microcytic anemia likely due to chronic illness and malnutrition. 6. Continued protein malnutrition due to poor oral intake. 7. Chronic hypertension that is stable. PLAN: I discussed the case with Dr. Davis and he wanted to keep the patient overnight, with enucleation of the abscess there is concern he could develop a bacteremia worsening infection even though he is on Invanz. I am not changing his antibiotics up, he did run 100 in fever, they did a set of blood cultures so that fever treated and it responded well. If the patient runs a fever overnight they are to do a lactic acid and let me know if it is elevated. He had a nutritional consultation. I spent a long time talking to him, the floatlight loading supervisor discussed with the patient on encouraging him to increase his protein intake and help with mealtime. The floatlight loading supervisor recommends that he continue with protein supplements at home and do some more diet modifications and hopefully will increase his oral intake. Dr. Davis wants the patient discharged tomorrow unless something drastically has changed clinically and to followup with Dr. Lorenz, although if he needs to see the patient again in the morning, just let him know. Hopefully, the patient will remain clinically stable enough to discharge back home to tomorrow continuing with his outpatient infusions of antibiotics as previously scheduled prior to this hospitalization. Until we can transition patient to outpatient management, we will continue to monitor and treat as needed. #[id number] [facility]
[2019-12-18 09:47] VITALS: O2SAT 98
[2019-12-18] MEDS: ERTAPENEM 1 GM in SODIUM CHL 0.9% 50ML MIN-BAG+ 50 ML IVPB SCH (11:02)
[2019-12-18 12:15] VITALS: BP 108/61; TEMP 97.5
--- NOTE | 2019-12-18 22:01 | DS ---
SUPERVISING PHYSICIAN: Eros Anaya M.D. DISCHARGE DIAGNOSIS: 1. Pelvic abscess status post sigmoid colectomy with status post percutaneous drainage and replacement of pigtail with cultures pending. 2. Intractable nausea likely secondary to #1, showing some slightly improvement. 3. Fever after percutaneous drainage with no obvious signs of sepsis with patient remaining on Invanz and Augmentin for antibiotic coverage. 4. Mild dehydration that has improved. 5. Stable anemia with microcytic anemia likely due to chronic illness and malnutrition. 6. Chronic protein malnutrition due to poor oral intake. 7. Chronic hypertension that is stable. HISTORY OF PRESENT ILLNESS: This is a 79 year-old male patient that has a past medical history of recent colectomy with a developing abscess that was being treated as an outpatient. He is on snf antibiotics in the form of Invanz. He has been doing fairly well, but has had a poor appetite. He also had some nausea and vomiting. In the evening prior to his admission he had worsening general malaise with a subjective fever reported to 101. He still has a drain in place in the right lower quadrant. Initial workup in the Emergency Room included a CT of the abdomen and pelvis with contrast and per radiology interpretation showed an abscess, inflammatory fluid collection in the right lower quadrant. There was also note of a developing abscess less than 3.1 cm in diameter in the subcutaneous tissue anterior muscle wall of the right anterior pelvis just below the entry site of the drainage catheter. His labs were showing a normal white count of 7,000. There was no left shift. H&H have been stable at 9.2 and 27.9 respectively. Chemistries showed normal electrolytes with a BUN 14, creatinine 1.19. Liver function tests were within normal limits. CRP was 10.6 and had been 10.9 on 12/05/19. Lipase was normal. Urinalysis was within normal limits. Dr. Davis was consulted in the Emergency Room based off findings of the CT and Dr. Davis requested that the patient be placed in observation overnight in anticipation of doing a percutaneous drainage of the abscess and replacement of the drainage tube with CT guided assistance. He was admitted to the hospital and placed in observation in stable condition. HOSPITAL COURSE: The patient was placed in observation. He was continued on his antibiotics. He was significantly weaker and he was well hydrated. Dr. Davis was consulted. The plan for the following day was the percutaneous drainage per CT guidance and possible replacement of the drain tube. His Lovenox was held that night for the process in the morning. He was also given a multivitamin infusion with some folic acid due to his poor nutritional status. At some point it would be helpful to do a workup on his microcytic anemia as he may need a rehab therapy manager at some point. Dr. Davis placed percutaneous drainage of the abscess in that right lower quadrant. Initially there was some trouble with pain management, but once that was controlled he responded well to his treatment. He did run a fever of 101 shortly after and there was a concern for a developing bacteremia worsening the infection, even though he is on Invanz and Augmentin. His Invanz was continued. There were no further complaints of an elevated temperature. He received nutritional counseling and recommended to continue with protein supplements at home as well as other diet modifications to increase his caloric intake. I discussed his discharge planning with his daughter at length and he will be discharged home today in stable condition. LABORATORY: Reports are as per the History of Present Illness. DISCHARGE PLAN: The patient last week be discharged home in stable condition. He is to resume his previous diet and increase his activity as tolerated. He is to resume his antibiotic therapy of Invanz as an outpatient. At noon starting tomorrow his IV antibiotic therapy will be through 12/24/19 and he is also to continue with the remainder of his Augmentin that he has at home. He is to call the office and get an appointment with Dr. Anaya as followup. He also has an appointment with Dr. Lorenz on 12/20/19 at 10:15 AM. He is to return to the hospital or followup with Dr. Lorenz or Dr. Anaya for any problems or complications. DISCHARGE MEDICATIONS: 1. Omeprazole. 2. Lisinopril. 3. Align. 4. Augmentin. 5. Zofran. 6. Invanz. #[id number] MTDD
== END 2019-12-18 13:05 | disposition home or self-care (01) ==
LOC: ER 08:26 → MS 13:16
PROVIDERS: ADMIT Nurse Practitioner Family; ATTEND Nurse Practitioner Acute Care
DX: K65.1 Peritoneal abscess (principal); T81.40XA Infection following a procedure, unspecified, initial encounter; R50.9 Fever, unspecified; E86.0 Dehydration; D50.9 Iron deficiency anemia, unspecified; E46 Unspecified protein-calorie malnutrition; I10 Essential (primary) hypertension; K21.9 Gastro-esophageal reflux disease without esophagitis; K57.30 Diverticulosis of large intestine without perforation or abscess without bleeding; Z68.23 Body mass index [BMI] 23.0-23.9, adult; Z79.2 Long term (current) use of antibiotics; Z79.899 Other long term (current) drug therapy; Z98.890 Other specified postprocedural states; Z90.49 Acquired absence of other specified parts of digestive tract; Z88.1 Allergy status to other antibiotic agents; Z88.6 Allergy status to analgesic agent
CPT/HCPCS: 96361; 96366 ×2; 96367; 96365; 96375 ×2; 96376; 96372; J2765; J2405; J7030 ×3; J1650; J1335 ×3; J7050 ×3; 80048; 36415 ×3; 81001; 80076; 86140; 85025; 87040 ×4; 87070; 83690; 76000; 74176; 74177; 76705; 94760 ×4; 99285; G0378

== ENCOUNTER → 2019-12-29 | Outpatient (CLI) | payer MEDICARE, OTHER ==
--- NOTE | 2019-12-30 13:20 | CT ---
EXAM DESCRIPTION: Pelvis CLINICAL HISTORY: 79 years Male, PELVIC ABSCESS TECHNIQUE: This exam was performed according to our departmental dose-optimization program, which includes automated exposure control, adjustment of the mA and/or kV according to patient size and/or use of iterative reconstruction technique. COMPARISON: November 2019 FINDINGS: Right lower quadrant percutaneous drainage catheter tip terminating within the region of the previous abscess. There is no significant or measurable residual fluid component identified in this area. There is tracking soft tissue in the right lower quadrant at the site of the previously identified fistula although there is no significant fluid or gas component currently. Surgical suture at the rectosigmoid junction. There is trace amount of free air and free fluid in the left lower quadrant adjacent the suture margin. However there is no drainable fluid component identified. The bladder is decompressed. Bladder wall thickening with perivesicular fat stranding. Scattered colonic diverticula without focal inflammatory change. No findings to suggest bowel obstruction. No adenopathy. No drainable fluid collection. Atherosclerotic plaque in the abdominal aorta. No acute or suspicious osseous abnormality. Scattered degenerative changes present. IMPRESSION: 1. Right lower quadrant percutaneous drainage catheter tip terminating in the region of the essentially resolved right lower quadrant abscess. 2. Surgical suture at the rectosigmoid junction with a small amount of adjacent free fluid and air similar to the previous examination. There is no drainable fluid component identified. 3. Bladder wall thickening and perivesicular fat stranding which can be seen with cystitis. Findings discussed with the ordering clinician at 1:19 PM 12/30/2019 Electronically signed by: Anthony Reis MD 12/30/2019 1:19 PM CDT
== END ==
LOC: RAD 14:20
PROVIDERS: ATTEND Surgery
DX: K65.1 Peritoneal abscess (principal); R18.8 Other ascites; Z98.890 Other specified postprocedural states; N32.89 Other specified disorders of bladder; Z97.8 Presence of other specified devices

== ENCOUNTER → 2020-02-08 | Outpatient (CLI) | payer MEDICARE, OTHER | LOC: GMA MATASK 10:46 | PROVIDERS: ATTEND Family Medicine | DX: I10 Essential (primary) hypertension (principal); Z12.5 Encounter for screening for malignant neoplasm of prostate | CPT/HCPCS: 84443; 84550; G0103 ==

== ENCOUNTER 2020-03-28 16:43 | Emergency (ER) | payer MEDICARE, OTHER ==
[2020-03-28] MEDS ORDERED: ACETAMINOPHEN 500 MG TAB ONE (16:52)
[2020-03-28] MEDS ORDERED: SODIUM CHLORIDE 0.9% 1000ML 1,000 ML ONE (16:52)
[2020-03-28 17:17] VITALS: TEMP 103
[2020-03-28] MEDS ORDERED: ACETAMINOPHEN 500 MG TAB PO ONE (17:19)
[2020-03-28] MEDS ORDERED: SODIUM CHLORIDE 0.9% 1000ML 500 ML IVS ONE (17:19)
--- NOTE | 2020-03-28 18:12 | RAD ---
EXAM: XR Chest, 1 View CLINICAL HISTORY: The patient is 79 years old and is Male; FEVER, COVID-LIKE SX. TECHNIQUE: Single upright portable view of the chest. COMPARISON: December 06, 2019. FINDINGS: Lungs: No pulmonary vascular congestion or consolidation. Pleural space: Unremarkable. No pneumothorax. Heart: The cardiac silhouette is enlarged versus artifact of AP technique. Mediastinum: Unremarkable. Bones/joints: No acute fracture visualized. Upper abdomen: No free air in the visualized upper abdomen. IMPRESSION: No acute cardiopulmonary process identified. Electronically signed by: Tabby Malone MD 03/28/2020 6:[address] [facility]
[2020-03-28] MEDS ORDERED: SODIUM CHLORIDE 0.9% 500ML 500 ML IVS ONE (20:01)
--- NOTE | 2020-03-28 20:59 | ED.PDOC ---
History of Present Illness - General Chief Complaint: Fever Stated Complaint: fever, cough Time Seen by Provider: 03/28/20 17:00 Source: patient Exam Limitations: no limitations - History of Present Illness Initial Comments: SHAKING AND CHILLS, STARTED LAST NIGHT. DECR FLUID PO INTAKE PAST 24 HRS. DENIES ABD PAIN. NO SOB. Timing/Duration: 24 hours Severity: moderate Improving Factors: rest Worsening Factors: movement Associated Symptoms: fever/chills Allergies/Adverse Reactions: Allergies Codeine Allergy (Verified 03/28/20 17:18) Levofloxacin [From Levaquin] Allergy (Verified 03/28/20 17:18) Metronidazole [From Flagyl] Allergy (Verified 03/28/20 17:18) Tramadol Allergy (Verified 03/28/20 17:18) Home Medications: Ambulatory Orders Omeprazole [Prilosec Cap] 20 mg PO DAILY 03/08/16 Lisinopril 10 mg PO DAILY 11/18/19 Bifidobacterium Infantis [Align] 4 mg PO BID cap 12/07/19 Amoxicillin & Pot Clavulanate [Augmentin Tab] 1 tablet PO BID 12/16/19 Ondansetron Odt [Zofran Odt] 4 mg PO Q4H PRN 12/16/19 Ertapenem [Invanz] 1 gm IVPB Q24H vial 12/18/19 Review of Systems - Review of Systems Constitutional: States: chills, fever, malaise EENTM: Denies: ear pain, nose congestion Respiratory: Denies: cough, short of breath Cardiology: Denies: chest pain, palpitations Gastrointestinal/Abdominal: Denies: abdominal pain, nausea Genitourinary: Denies: dysuria, frequency Skin: States: no symptoms reported Neurological: States: no symptoms reported Endocrine: States: no symptoms reported Hematologic/Lymphatic: States: no symptoms reported All other Systems: Reviewed and Negative Past Medical History (General) - Patient Medical History Hx Seizures: No Hx Stroke: No Hx Dementia: No Hx Asthma: Yes Hx of COPD: No Hx Cardiac Disorders: No Hx Congestive Heart Failure: No Hx Pacemaker: No Hx Hypertension: Yes Hx Thyroid Disease: No Hx Diabetes: No Hx Gastroesophageal Reflux: Yes Hx Renal Disease: No Hx Cancer: No Hx of HIV: No Hx Hepatitis C: No Hx MRSA: No - Vaccination History Hx Tetanus, Diphtheria Vaccination: Yes Hx Influenza Vaccination: Yes Hx Pneumococcal Vaccination: Yes - Social History Hx Tobacco Use: No Hx Chewing Tobacco Use: No Hx Alcohol Use: No Hx Substance Use: No Hx Substance Use Treatment: No Hx Depression: No Hx Physical Abuse: No Hx Emotional Abuse: No Hx Suspected Abuse: No - Activities of Daily Living Hospice Agency (if applicable):: None - Female History Patient is a Female of Child Bearing Age (10 -59 yrs old): No Patient : No Family Medical History - Family History Father Family History: No Known Living Status: Age at (years of age): 71 Cause of : heart attack Hx Family Asthma: Yes - copd Hx Cardiac Disease: Yes - dad of [place] Physical Exam - Physical Exam General Appearance: Alert, Ill Appearing Eye Exam: bilateral normal Ears, Nose, Throat: normal ENT inspection, normal pharynx Neck: non-tender, supple Respiratory: lungs clear, normal breath sounds Cardiovascular/Chest: no edema, no JVD, no murmur Peripheral Pulses: radial,right: 2+, radial,left: 2+ Gastrointestinal/Abdominal: normal bowel sounds, non tender, soft, no organomegaly, no pulsatile mass Rectal Exam: deferred Back Exam: no CVA tenderness Extremity: normal range of motion, normal inspection Neurologic: no motor/sensory deficits, alert, normal mood/affect, oriented x 3 Skin Exam: normal color, diaphoresis Lymphatic: no adenopathy Progress - Results/Orders Results/Orders: COVID AND FLU NEG. CXR NEG. CBC WBC AND NEUTS ELEVATED. CMP BUN 20, CR 1.34 ( 0.98 FIVE MOS AGO). I spoke with Dr. Davis, who informed me he had h/o colon ressection which got infected. TODAY IT IS NOT ABDOMINAL RELATED - PT HAS NO ABD PAIN AND HIS ABDOMEN IS NTTP. ARF, DEHYDRATION, HYPOTENSION - BOLUSED 1L. BP INCREASED FROM SYS 106 TO 127. FEVER - GAVE TYLENOL. VIRAL URI. SAFE FOR DC TO HOME. PUSH PO FLUIDS. F/U W/ PCP THIS WEEK TO ENSURE ARF RESOLVED AND BUN/CR BACK TO NL. Departure - Departure Clinical Impression: Fever in adult, Neutrophilic leukocytosis, Viral upper respiratory infection Acute renal failure Qualifiers: Acute renal failure type: unspecified Qualified Code(s): N17.9 - Acute kidney failure, unspecified Hypotension Qualifiers: Hypotension type: other hypotension type Qualified Code(s): I95.89 - Other hypotension Disposition: Discharge to Home or Self Care Condition: Good Departure Forms: ED Discharge - Pt. Copy, Patient Portal Self Enrollment Instructions: Viral Upper Respiratory Infection, Adult (DC) Diet: bland diet, other - DRINK AT LEAST 64 OZ WATER PER DAY. Activity: increase activity as tolerated Referrals: Eros Anaya MD [Primary Care Provider] - 1-5 Days Home Medications: Ambulatory Orders Omeprazole [Prilosec Cap] 20 mg PO DAILY 03/08/16 Lisinopril 10 mg PO DAILY 11/18/19 Bifidobacterium Infantis [Align] 4 mg PO BID cap 12/07/19 Amoxicillin & Pot Clavulanate [Augmentin Tab] 1 tablet PO BID 12/16/19 Ondansetron Odt [Zofran Odt] 4 mg PO Q4H PRN 12/16/19 Ertapenem [Invanz] 1 gm IVPB Q24H vial 12/18/19 Additional Instructions: Please see Dr. Anaya this week to recheck labs to ensure your kidneys are rehydrated. Please drink at least 64 oz water per day to stay hydrated.
[2020-03-28 21:18] VITALS: BP 113/71; O2SAT 98
== END 2020-03-28 21:18 | disposition home or self-care (01) ==
LOC: ER 16:43
DX: J06.9 Acute upper respiratory infection, unspecified (principal); N17.9 Acute kidney failure, unspecified; D72.829 Elevated white blood cell count, unspecified; I95.89 Other hypotension; Z79.899 Other long term (current) drug therapy; Z20.822 Contact with and (suspected) exposure to COVID-19; K21.9 Gastro-esophageal reflux disease without esophagitis; I10 Essential (primary) hypertension; J45.909 Unspecified asthma, uncomplicated; Z88.5 Allergy status to narcotic agent; Z88.1 Allergy status to other antibiotic agents
CPT/HCPCS: 36415; 71045; 80053; 85025; 87502; 87635; J7030; J7040

== ENCOUNTER 2020-03-29 18:41 | Emergency (ER) | payer MEDICARE, OTHER ==
--- NOTE | 2020-03-29 19:16 | ED.PDOC ---
History of Present Illness - General Time Seen by Provider: 03/29/20 19:12 - History of Present Illness Initial Comments: CC: LLE pain/redness 79-year-old male positive past medical history presents ED complaining of left lower leg redness with associated focal warmth, tenderness, and mild swelling. Patient states he was here yesterday and discharged home but his current symptoms began today. He endorses generalized fatigue but denies any other symptoms. Denies history of similar symptoms. Denies alleviating/aggravating factors. Patient otherwise healthy with no other signs, symptoms, complaints. Allergies/Adverse Reactions: Allergies Codeine Allergy (Verified 03/28/20 17:18) Levofloxacin [From Levaquin] Allergy (Verified 03/28/20 17:18) Metronidazole [From Flagyl] Allergy (Verified 03/28/20 17:18) Tramadol Allergy (Verified 03/28/20 17:18) Home Medications: Ambulatory Orders Omeprazole [Prilosec Cap] 20 mg PO DAILY 03/08/16 Lisinopril 10 mg PO DAILY 11/18/19 Bifidobacterium Infantis [Align] 4 mg PO BID cap 12/07/19 Amoxicillin & Pot Clavulanate [Augmentin Tab] 1 tablet PO BID 12/16/19 Ondansetron Odt [Zofran Odt] 4 mg PO Q4H PRN 12/16/19 Ertapenem [Invanz] 1 gm IVPB Q24H vial 12/18/19 Cephalexin Monohydrate [Keflex] 500 mg PO QID 10 Days #40 cap 03/29/20 Ondansetron HCl [Zofran] 4 mg PO TID PRN #15 tab 03/29/20 Review of Systems - Review of Systems Constitutional: States: chills, fever, other - fatigue EENTM: Denies: nose congestion, throat pain Respiratory: Denies: cough, short of breath Cardiology: Denies: chest pain, palpitations Gastrointestinal/Abdominal: Denies: abdominal pain, diarrhea, nausea, vomiting Genitourinary: Denies: dysuria, frequency Musculoskeletal: States: joint swelling, muscle pain. Denies: neck pain Skin: States: change in color. Denies: dryness Neurological: Denies: headache, numbness, tingling Hematologic/Lymphatic: Denies: easy bruising Past Medical History (General) - Patient Medical History Hx Seizures: No Hx Stroke: No Hx Dementia: No Hx Asthma: Yes Hx of COPD: No Hx Cardiac Disorders: No Hx Congestive Heart Failure: No Hx Pacemaker: No Hx Hypertension: Yes Hx Thyroid Disease: No Hx Diabetes: No Hx Gastroesophageal Reflux: Yes Hx Renal Disease: No Hx Cancer: No Hx of HIV: No Hx Hepatitis C: No Hx MRSA: No - Vaccination History Hx Tetanus, Diphtheria Vaccination: Yes Hx Influenza Vaccination: Yes Hx Pneumococcal Vaccination: Yes - Social History Hx Tobacco Use: No Hx Chewing Tobacco Use: No Hx Alcohol Use: No Hx Substance Use: No Hx Substance Use Treatment: No Hx Depression: No Hx Physical Abuse: No Hx Emotional Abuse: No Hx Suspected Abuse: No - Female History Patient : No Family Medical History - Family History Father Family History: No Known Living Status: Age at (years of age): 71 Cause of : heart attack Hx Family Asthma: Yes - copd Hx Cardiac Disease: Yes - dad of [place] Physical Exam - Physical Exam General Appearance: Alert, Comfortable, No apparent distress Eyes, Ears, Nose, Throat: normal ENT inspection Neck: full range of motion, supple Cardiovascular/Respiratory: regular rate, rhythm, no M/R/G, normal peripheral pulses, no JVD, normal breath sounds, no respiratory distress Gastrointestinal/Abdominal: non-tender, other - bowel sounds wnl Thigh/Hip: normal inspection Leg: other - LLE with swelling, erythema, mild induration, focal warmth greatest distally and extending proximately to mid tib/fib, no crepitance, no open wound, no exudate Knee: normal inspection, non-tender Ankle: no evidence of injury Foot: normal inspection, non-tender, no evidence of injury Neuro/Tendon: normal sensation, normal motor functions Mental Status: alert, oriented x 3 Skin: warm/dry, other - see above exam, cellulitis of LLE Progress - Progress Progress: Damon Haines DO Emergency Medicine Physician [id number] Appropriate PPE of surgical mask, gown, gloves, and eye protection (if encounter >5 minutes) utilized with every patient encounter; in accordance with hospital policy. Presents for LLE cellulitis. Low clinical concern for sepsis. Will further evaluate pt's TREASURE noted yesterday. I will perform imaging, labs, provide appropriate pharmacotherapy, and continue to monitor/reassess. Dispo will depend on imaging and lab results and overall course in ED; however, discharge home is expected with f/u, education, and possible rx. Zosyn given in ED. No sepsis present. 03/29/20 20:50 Rechecked pt. NAD, VSS, resting comfortably in bed and is feeling better. I have discussed risk/benefits/alternatives of admission with patient versus discharge home. Patient prefers discharge home and declines admission at this time. He has a follow-up appointment with his primary care doctor this coming morning. He would rather go home and take outpatient oral antibiotics and follow-up with his primary care to be reassessed for continued management outpatient leave versus admission. I have discussed radiology results, lab results, my clinical impression, and diagnosis. I have also discussed plan for discharge home with f/u, education, and prescription medications. ED return precautions provided. Pt voices understanding, agrees with plan, and all questions answered. Given first dose of Keflex PO in ED. - Results/Orders Results/Orders: 03/29/20 19:14 IV Care:Saline Lock per Protoc QSHIFT IV:Start .ONCE 03/29/20 19:50 BLOOD CULTURE Stat Laboratory Results - last 24 hr 03/29/20 03/29/20 03/29/20 20:07 20:07 20:07 WBC 9.9 RBC 4.91 Hgb 11.5 L Hct 36.3 L MCV 74.0 L MCH 23.4 L MCHC 31.6 L RDW 17.3 H Plt Count 165 MPV 7.7 Absolute Neuts (auto) 8.20 H Absolute Lymphs (auto) 1.00 Absolute Monos (auto) 0.60 Absolute Eos (auto) 0.00 Absolute Basos (auto) 0.00 Neutrophils % 82.6 H Lymphocytes % 10.4 L Monocytes % 6.2 Eosinophils % 0.4 L Basophils % 0.4 Sodium 133 L Potassium 4.1 Chloride 102 Carbon Dioxide 23 Anion Gap 12.1 BUN 33 H D Creatinine 1.54 H BUN/Creatinine Ratio 21.4 H Random Glucose 89 Serum Osmolality 273.1 L Lactic Acid 1.1 Calcium 8.1 L Total Bilirubin 1.0 AST 29 ALT 19 Alkaline Phosphatase 67 Serum Total Protein 6.3 L Albumin 3.3 Globulin 3.0 Albumin/Globulin Ratio 1.1 Urine Color Urine Appearance Urine pH Ur Specific [place] Urine Protein Urine Glucose (UA) Urine Ketones Urine Blood Urine Nitrite Urine Bilirubin Urine Urobilinogen Ur Leukocyte Esterase Urine RBC Urine WBC Ur Epithelial Cells Urine Bacteria 03/29/20 20:07 WBC RBC Hgb Hct MCV MCH MCHC RDW Plt Count MPV Absolute Neuts (auto) Absolute Lymphs (auto) Absolute Monos (auto) Absolute Eos (auto) Absolute Basos (auto) Neutrophils % Lymphocytes % Monocytes % Eosinophils % Basophils % Sodium Potassium Chloride Carbon Dioxide Anion Gap BUN Creatinine BUN/Creatinine Ratio Random Glucose Serum Osmolality Lactic Acid Calcium Total Bilirubin AST ALT Alkaline Phosphatase Serum Total Protein Albumin Globulin Albumin/Globulin Ratio Urine Color Yellow Urine Appearance Clear Urine pH 5.5 Ur Specific [place] 1.025 Urine Protein 100 H Urine Glucose (UA) Negative Urine Ketones Negative Urine Blood Negative Urine Nitrite Negative Urine Bilirubin Small H Urine Urobilinogen 0.2 Ur Leukocyte Esterase Negative Urine RBC 0 Urine WBC 0-1 Ur Epithelial Cells 0 Urine Bacteria 0 EXAM: XR Left Ankle, 2 Views CLINICAL HISTORY: left lower leg cellulitis TECHNIQUE: Frontal and lateral views of the left ankle. COMPARISON: No relevant prior studies available. FINDINGS: Limitations: None. Bones/joints: Tiny developing plantar calcaneal spur. No periosteal reaction or osseous destruction. Soft tissues: No soft tissue gas collection. Vasculature: Atherosclerotic calcification noted. IMPRESSION: No acute change noted. Electronically signed by: Meredith Tolentino MD 03/29/2020 8:37 PM [employer] Vital Signs - 24 hr 03/29/20 19:10 Temperature 98.9 F Pulse Rate [ 84 pulse ox] Respiratory 18 Rate Blood Pressure 121/75 [Left Arm] O2 Sat by Pulse 96 Oximetry Departure - Departure Clinical Impression: Left leg cellulitis, TREASURE (acute kidney injury) Time of Disposition: 20:48 Disposition: Discharge to Home or Self Care Condition: Fair Departure Forms: ED Discharge - Pt. Copy, Patient Portal Self Enrollment Instructions: Acute Kidney Injury (DC), Cellulitis (Skin Infection), Adult (DC) Diet: resume usual diet Activity: increase activity as tolerated Referrals: Eros Anaya MD [Primary Care Provider] - 03/30/20 Prescriptions: Cephalexin Monohydrate [Keflex] 500 mg PO QID 10 Days #40 cap Ondansetron HCl [Zofran] 4 mg PO TID PRN #15 tab PRN Reason: Nausea/Vomiting Home Medications: Ambulatory Orders Omeprazole [Prilosec Cap] 20 mg PO DAILY 03/08/16 Lisinopril 10 mg PO DAILY 11/18/19 Bifidobacterium Infantis [Align] 4 mg PO BID cap 12/07/19 Amoxicillin & Pot Clavulanate [Augmentin Tab] 1 tablet PO BID 12/16/19 Ondansetron Odt [Zofran Odt] 4 mg PO Q4H PRN 12/16/19 Ertapenem [Invanz] 1 gm IVPB Q24H vial 12/18/19 Cephalexin Monohydrate [Keflex] 500 mg PO QID 10 Days #40 cap 03/29/20 Ondansetron HCl [Zofran] 4 mg PO TID PRN #15 tab 03/29/20
--- NOTE | 2020-03-29 20:39 | RAD ---
EXAM: XR Left Ankle, 2 Views CLINICAL HISTORY: left lower leg cellulitis TECHNIQUE: Frontal and lateral views of the left ankle. COMPARISON: No relevant prior studies available. FINDINGS: Limitations: None. Bones/joints: Tiny developing plantar calcaneal spur. No periosteal reaction or osseous destruction. Soft tissues: No soft tissue gas collection. Vasculature: Atherosclerotic calcification noted. IMPRESSION: No acute change noted. Electronically signed by: Meredith Tolentino MD 03/29/2020 8:37 PM [facility]
[2020-03-29 20:53] VITALS: O2SAT 97
[2020-03-29] MEDS ORDERED: CEPHALEXIN 500MG CAP (ER DISP) PO ONE (21:00)
[2020-03-29 21:02] VITALS: BP 134/75; TEMP 98.7
[2020-03-29] MEDS ORDERED: CEPHALEXIN MONOHYDRATE 250 MG CAP PO ONE (21:04)
== END 2020-03-29 21:14 | disposition home or self-care (01) ==
LOC: ER 18:41
DX: L03.116 Cellulitis of left lower limb (principal); N17.9 Acute kidney failure, unspecified; J45.909 Unspecified asthma, uncomplicated; K21.9 Gastro-esophageal reflux disease without esophagitis; I10 Essential (primary) hypertension; Z79.899 Other long term (current) drug therapy; Z88.5 Allergy status to narcotic agent; Z88.1 Allergy status to other antibiotic agents

== ENCOUNTER 2020-04-01 10:39 | Inpatient (IN) | payer MEDICARE, OTHER ==
--- NOTE | 2020-04-01 11:27 | ED.PDOC ---
History of Present Illness - General Chief Complaint: Skin/Abrasion/Tear Stated Complaint: worsening cellulitis to LLE Time Seen by Provider: 04/01/20 11:19 Source: patient, family Exam Limitations: no limitations - History of Present Illness Initial Comments: The patient is a79 year old male with past medical history significant for HLD who presents with LLE cellulitis. This is his third ED visit in one week. he was initially seen in the ED 4 days ago for generalized weakness and fever, inability to get out of bed. His workup at that time was remarkable only for mild TREASURE and he was treated for possible URI after negative workup. The following day he noticed LLE redness, swelling and pain. He returned to the ED and was noted to have cellulitis for which he was given keflex. He returns today for worsening of his symptoms. Complains of continued weakness/fatigue, fevers at home, and worsening redness. He is concerned about possible blood clot. No other complaints at this time. Allergies/Adverse Reactions: Allergies Codeine Allergy (Verified 03/28/20 17:18) Levofloxacin [From Levaquin] Allergy (Verified 03/28/20 17:18) Metronidazole [From Flagyl] Allergy (Verified 03/28/20 17:18) Tramadol Allergy (Verified 03/28/20 17:18) Home Medications: Ambulatory Orders Omeprazole [Prilosec Cap] 20 mg PO DAILY 03/08/16 Ondansetron Odt [Zofran Odt] 4 mg PO Q4H PRN 12/16/19 Cephalexin Monohydrate [Keflex] 500 mg PO QID 10 Days #40 cap 03/29/20 Tadalafil 5 mg PO DAILY 04/01/20 Tamsulosin HCl [Tamsulosin Hydrochloride] 0.8 mg PO DAILY 04/01/20 Review of Systems - Review of Systems Constitutional: States: chills, fever, malaise, weakness - generalized EENTM: States: no symptoms reported Respiratory: Denies: cough, short of breath Cardiology: Denies: chest pain, palpitations Gastrointestinal/Abdominal: Denies: abdominal pain, diarrhea, nausea, vomiting Genitourinary: States: no symptoms reported Musculoskeletal: States: joint pain, muscle pain Skin: States: rash Neurological: States: no symptoms reported Endocrine: States: no symptoms reported Hematologic/Lymphatic: States: no symptoms reported All other Systems: Reviewed and Negative, No Change from Baseline Past Medical History (General) - Patient Medical History Hx Seizures: No Hx Stroke: No Hx Dementia: No Hx Asthma: Yes Hx of COPD: No Hx Cardiac Disorders: No Hx Congestive Heart Failure: No Hx Pacemaker: No Hx Hypertension: Yes Hx Thyroid Disease: No Hx Diabetes: No Hx Gastroesophageal Reflux: Yes Hx Renal Disease: No Hx Cancer: No Hx of HIV: No Hx Hepatitis C: No Hx MRSA: No - Vaccination History Hx Tetanus, Diphtheria Vaccination: Yes Hx Influenza Vaccination: Yes Hx Pneumococcal Vaccination: Yes - Social History Hx Tobacco Use: No Hx Chewing Tobacco Use: No Hx Alcohol Use: No Hx Substance Use: No Hx Substance Use Treatment: No Hx Depression: No Hx Physical Abuse: No Hx Emotional Abuse: No Hx Suspected Abuse: No - Female History Patient : No Family Medical History - Family History Father Family History: No Known Living Status: Age at (years of age): 71 Cause of : heart attack Hx Family Asthma: Yes - copd Hx Cardiac Disease: Yes - dad of DC Physical Exam - Physical Exam General Appearance: Anxious, No apparent distress Ears, Nose, Throat: hearing grossly normal Neck: non-tender, full range of motion Respiratory: no respiratory distress Cardiovascular/Chest: regular rate, rhythm, no murmur Extremity: normal range of motion, calf tenderness, inflammation, swelling, other - Circumferential LLE erythema with tenderness to palpation. Neurologic: no motor/sensory deficits, alert, oriented x 3 Skin Exam: normal color Lymphatic: no adenopathy Progress - Progress Progress: 04/01/20 11:49 Informed by nursing staff that ultrasound services are not available on weekends or after hours. 04/01/20 17:23 Patient reassessed, workup as above. Upon re-evaluation he has erythema progressing toward his groin. Reports fever at home with weakness, third ER visit this week. Will start IV antibiotics and plan for admission. Discussed with JEAN-CLAUDE Valencia, accepts for admit for cellulitis. - Results/Orders Results/Orders: 04/01/20 17:24 ED Intent to Admit Routine 04/01/20 17:58 BLOOD CULTURE Stat Laboratory Results - last 24 hr 04/01/20 04/01/20 04/01/20 11:44 11:44 11:44 WBC 10.0 RBC 4.53 L Hgb 10.7 L Hct 33.6 L MCV 74.1 L MCH 23.6 L MCHC 31.8 L RDW 16.9 H Plt Count 183 MPV 7.7 Absolute Neuts (auto) 8.10 H Absolute Lymphs (auto) 0.90 L Absolute Monos (auto) 0.80 Absolute Eos (auto) 0.10 Absolute Basos (auto) 0.00 Neutrophils % 81.3 H Lymphocytes % 8.9 L Monocytes % 8.4 Eosinophils % 1.1 Basophils % 0.3 Sodium 134 L Potassium 3.7 Chloride 101 Carbon Dioxide 25 Anion Gap 11.7 L BUN 28 H Creatinine 1.32 H BUN/Creatinine Ratio 21.2 H Random Glucose 107 H Serum Osmolality 274.2 L Lactic Acid 1.2 Calcium 8.0 L Medical Decision Making Patient presents to the ED with worsening erythema to the LLE and fevers at home. No significan leukocytosis, however, in the ED he is noted to have worsening of his cellulitis with extension to the groin. Due to rapid spread despite oral antibiotics at home he will be admitted for IV antibiotics and continued evaluation. No evidence for DVT or other acute cardiopulmonary process. Departure - Departure Clinical Impression: Cellulitis of left leg Time of Disposition: 17:24 Disposition: Admit Patient Departure Forms: ED Discharge - Pt. Copy, Patient Portal Self Enrollment Instructions: DI for Abrasion Referrals: Eros Anaya MD [Primary Care Provider] - 1-2 Weeks Home Medications: Ambulatory Orders Omeprazole [Prilosec Cap] 20 mg PO DAILY 03/08/16 Ondansetron Odt [Zofran Odt] 4 mg PO Q4H PRN 12/16/19 Cephalexin Monohydrate [Keflex] 500 mg PO QID 10 Days #40 cap 03/29/20 Tadalafil 5 mg PO DAILY 04/01/20 Tamsulosin HCl [Tamsulosin Hydrochloride] 0.8 mg PO DAILY 04/01/20 Decision To Admit - Decistion To Admit Decision to Admit Reason: Admit from ER Decision to Admit Date: 04/01/20 Decision to Admit Time: 17:24
--- NOTE | 2020-04-01 13:52 | RAD ---
: 1940. Technique: Portable AP chest x-ray. Comparison: March 28, 2020. Clinical history: cough, shortness of breath. Heart size: Heart size is moderately enlarged. Tortuous aorta. No vascular congestion. Lungs: Shallow inspiration. Minimal basilar bronchovascular crowding or subsegmental atelectasis. No airspace consolidation. Pleura: No pleural effusion. No pneumothorax. Mediastinum and roel: Unremarkable. Skeletal: Unremarkable. Support tubings: None. Impression: 1. Cardiomegaly and minimal basilar atelectasis. No evidence for pneumonia. 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
--- NOTE | 2020-04-01 17:08 | US ---
EXAM DESCRIPTION: Venous,Lower Extremity LT CLINICAL HISTORY: 79 years Male swelling, concern for DVT COMPARISON: None. TECHNIQUE: Duplex imaging performed to evaluate the left lower extremity venous structures. Compression imaging and augmentation imaging performed. The common femoral, superficial femoral, popliteal, greater saphenous and posterior tibial veins were examined. FINDINGS: No thrombus is identified in the left lower extremity venous structures. IMPRESSION: No DVT is identified in the left lower extremity. Electronically signed by: Gopi Hutchinson MD 04/01/2020 5:06 PM [facility]
[2020-04-01] MEDS ORDERED: VANCOMYCIN HCL INJ 1,000 MG in SODIUM CHLORIDE 0.9% 250ML 250 ML IVPB ONE (17:15)
--- NOTE | 2020-04-01 20:24 | HP ---
SUPERVISING PHYSICIAN: Shawn Hyman MD DATE OF SERVICE: 04/02/20 CHIEF COMPLAINT: Left lower extremity pain. HISTORY OF PRESENT ILLNESS: Mr. David is a 79 year-old male patient that has a complaint of left lower extremity pain. He presented to the Emergency Room 3 times this week. He was initially seen for generalized weakness and fever with inability to get out of bed. At that time, his workup showed some mild kidney injury. He was treated for a possible upper respiratory infection and discharged. He came to the Emergency Room the next day when he noticed that his left lower leg was reddened and had some swelling with some pain. He was concerned for an infection. After workup, he was given some Keflex. He came to the Emergency Room on the date of admission due to worsening of that left lower extremity pain. He noticed some redness and swelling and was afraid that he had a blood clot. His initial vital signs showed temperature of 97.6, heart rate 73, blood pressure 110/65, respiratory rate 20. Oxygen saturation 96% on room air. Lab studies were done. His WBCs were 7,000, hemoglobin 10.7, hematocrit 33.6. He had a left shift on his differential. Sodium 134, potassium 6.7, chloride 101, BUN 28, creatinine 1.32. Baseline creatinine is about 1. Calcium is 8. Blood cultures were drawn. Chest x-ray shows cardiomegaly and minimal basilar atelectasis. No evidence for pneumonia. His left lower extremity ultrasound showed no DVT identified. He was given vancomycin in the Emergency Room and placed in observation in the hospital. PAST MEDICAL HISTORY: 1. Hypertension. 2. Gastroesophageal reflux disease. PAST SURGICAL HISTORY: 1. Sigmoid colectomy with appendectomy and intraoperative bladder repair with complications due to abscess in November of 2019. 2. Hernia repair. 3. Hemorrhoidectomy. OUTPATIENT MEDICATIONS: Per the EMR and awaiting verification. ALLERGIES: CODEINE, LEVAQUIN, METRONIDAZOLE AND TRAMADOL. FAMILY HISTORY: Positive for heart attack and complications from surgery. SOCIAL HISTORY: The patient lives in [place]. He denies tobacco, ETOH or illicit drug use. REVIEW OF SYSTEMS: As per history of present illness. PHYSICAL EXAMINATION: VITAL SIGNS: Temperature 98.7, heart rate 84, blood pressure 122/78, respirations 17, oxygen saturation 97%. GENERAL: This is a 79 year-old male patient who is sitting up in his hospital bed. He is in no acute distress. HEENT: Normocephalic and atraumatic. Pupils are equal and reactive. Oropharynx is clear. NECK: Supple. CHEST: Essentially clear to auscultation bilaterally. HEART: Regular rate and rhythm. ABDOMEN: Soft, nondistended, non-tender. Positive bowel sounds. EXTREMITIES: Left lower extremity shows circumferential inflammation and swelling. His bilateral pedal pulses are palpable +2. NEUROLOGIC: He is awake, alert and oriented times three. Cranial nerves II-XII are grossly intact as tested. SKIN: Warm, pink and dry except for the left lower extremity. LABORATORY: Followup lab shows WBC 8,300 with hemoglobin 10.2, hematocrit 32.1. Electrolytes are basically within normal limits except his calcium is slightly low at 8.1. All other labs and films have been reviewed via the EMR. ASSESSMENT: 1. Left lower extremity cellulitis. 2. Acute on chronic renal insufficiency. His creatinine on admission was 1.32, baseline is about 1. 3. Hypertension. 4. Gastroesophageal reflux disease. PLAN: The patient has been placed in observation. He will have vancomycin and we will watch his clinical response. I have ordered labs for in the morning and if he does not clinically improve, he may need further testing. He will have Lovenox for DVT prophylaxis, PPI for ulcer prophylaxis. His home medications will be restarted as soon as they have been verified. #[id number] [facility]
[2020-04-01] MEDS ORDERED: SODIUM CHLORIDE 0.9% (FLUSH) 10 ML SYG IV PRN (20:36)
[2020-04-01] MEDS ORDERED: ACETAMINOPHEN 325 MG TAB PO PRN (20:36)
[2020-04-01] MEDS ORDERED: ONDANSETRON INJ 4 MG/2 ML VIAL IV PRN (20:36)
[2020-04-01] MEDS ORDERED: LEVALBUTEROL NEBS 1.25 MG/3 ML VIAL INH PRN (20:36)
[2020-04-01] MEDS: IV SET AND CAP CHANGE INJ INJ SCH (22:08)
[2020-04-01] MEDS: SODIUM CHLORIDE 0.9% (FLUSH) 10 ML SYG IV SCH (22:08)
[2020-04-01] MEDS: ENOXAPARIN SODIUM 40 MG/0.4 ML SYG SUBCU SCH (22:08)
[2020-04-02] MEDS: PANTOPRAZOLE SODIUM IV 40 MG VIAL IV SCH (05:28)
[2020-04-02] MEDS ORDERED: VANCOMYCIN PER PHARMACY IVPB SCH (07:00)
[2020-04-02] MEDS: TAMSULOSIN 0.4 MG CAP PO SCH (09:01)
[2020-04-02] MEDS: SODIUM CHLORIDE 0.9% (FLUSH) 10 ML SYG IV SCH ×2 (09:01→20:00)
[2020-04-02] MEDS: NON-FORMULARY MEDICATION 1 EA MIS (Tadalafil [Tadalafil] 5 MG) PO SCH (09:02)
[2020-04-02] MEDS ORDERED: SODIUM CHLORIDE 0.9% 500ML 500 ML ONE (14:41)
[2020-04-02] MEDS ORDERED: VANCOMYCIN HCL INJ 500 MG VIAL ONE (14:41)
[2020-04-02] MEDS ORDERED: VANCOMYCIN HCL INJ 1,000 MG VIAL IVPB ONE (14:41)
[2020-04-02] MEDS: VANCOMYCIN HCL INJ 1,000 MG, VANCOMYCIN HCL INJ 500 MG in SODIUM CHLORIDE 0.9% 250ML 25... IVPB SCH (14:45)
[2020-04-02] MEDS ORDERED: ENOXAPARIN SODIUM 40 MG/0.4 ML SYG SUBCU ONE (19:16)
[2020-04-02] MEDS: ENOXAPARIN SODIUM 40 MG/0.4 ML SYG SUBCU SCH (20:00)
[2020-04-02] MEDS: BIFIDOBACTERIUM INFANTIS 4 MG CAP PO SCH (20:00)
[2020-04-03] MEDS ORDERED: PANTOPRAZOLE SODIUM IV 40 MG VIAL ONE (02:24)
[2020-04-03] MEDS: PANTOPRAZOLE SODIUM IV 40 MG VIAL IV SCH (06:03)
[2020-04-03] MEDS ORDERED: VANCOMYCIN HCL INJ 1,000 MG VIAL IVPB ONE (07:07)
[2020-04-03] MEDS ORDERED: TAMSULOSIN 0.4 MG CAP ONE (07:08)
[2020-04-03] MEDS ORDERED: SODIUM CHLORIDE 0.9% 500ML 0 ML ONE (07:08)
[2020-04-03] MEDS: TAMSULOSIN 0.4 MG CAP PO SCH (08:01)
[2020-04-03] MEDS: BIFIDOBACTERIUM INFANTIS 4 MG CAP PO SCH ×2 (08:01→20:20)
[2020-04-03] MEDS: VANCOMYCIN HCL INJ 1,000 MG, VANCOMYCIN HCL INJ 500 MG in SODIUM CHLORIDE 0.9% 250ML 25... IVPB SCH (08:02)
[2020-04-03] MEDS ORDERED: VANCOMYCIN HCL INJ 500 MG VIAL ONE (08:04)
[2020-04-03] MEDS ORDERED: SODIUM CHLORIDE 0.9% 250ML 250 ML ONE (08:06)
[2020-04-03] MEDS: SODIUM CHLORIDE 0.9% (FLUSH) 10 ML SYG IV SCH ×2 (08:20→20:20)
[2020-04-03] MEDS: NON-FORMULARY MEDICATION 1 EA MIS (Tadalafil [Tadalafil] 5 MG) PO SCH (08:20)
[2020-04-03] MEDS ORDERED: SODIUM CHL 0.9% 50ML MIN-BAG+ 50 ML IVPB ONE (09:04)
[2020-04-03] MEDS ORDERED: ceFAZolin SODIUM 1 GM VIAL ONE (09:04)
[2020-04-03] MEDS: ceFAZolin SODIUM 1 GM in SODIUM CHL 0.9% 50ML MIN-BAG+ 50 ML IVPB SCH ×2 (09:38→16:53)
--- NOTE | 2020-04-03 14:27 | PN ---
SUPERVISING PHYSICIAN: Mir Velasquez MD DATE: 04/03/20 SUBJECTIVE: The patient is not complaining of any significant pain and feels that his leg is getting a little bit better. I did not visualize the leg before, but he states that it is a little bit less red than it was. OBJECTIVE: VITAL SIGNS: Blood pressure 137/77, heart rate 80, respiratory rate 16, temperature 98.2, oxygen saturation 98% on room air. GENERAL: Mr. David is a 79-year-old male patient in no active distress. NEUROLOGIC: The patient is alert. LUNGS: Clear. CARDIOVASCULAR: Regular rate and rhythm. Normal S1, S2. ABDOMEN: Soft. Positive bowel sounds. EXTREMITIES: Lower extremities show a normal right lower extremity with good peripheral pulses and good capillary refill. The left lower extremity is quite edematous below the knee with erythema and warmth to the toe. There are border markings where the cellulitis started and there is a mild recession of the erythema from those borders, however, there is still significant redness and the erythema as well as edema at this time. LABORATORY: Normal white count, hemoglobin 10.5, hematocrit 33.3, platelet count 247. Chemistries pretty much unremarkable. MICROBIOLOGY: So far, his cultures have shown growth over the last 24 hours. ASSESSMENT: 1. Left lower extremity cellulitis. 2. Acute on chronic renal insufficiency. 3. Hypertension. 4. Gastroesophageal reflux disease. PLAN: I am going to add cefazolin to her antibiotic therapy as she is on vancomycin alone at this time. I am not sure exactly what organism is causing the cellulitis and it may not be MRSA which vancomycin is primarily used for. Due to the fact that the erythema, edema and warmth is still significant, I recommend the patient stay for continuous IV antibiotic therapy. #[id number] [facility]
[2020-04-03] MEDS: ENOXAPARIN SODIUM 40 MG/0.4 ML SYG SUBCU SCH (20:20)
[2020-04-04] MEDS: ceFAZolin SODIUM 1 GM in SODIUM CHL 0.9% 50ML MIN-BAG+ 50 ML IVPB SCH ×3 (00:46→16:23)
[2020-04-04] MEDS ORDERED: PANTOPRAZOLE SODIUM TAB 40 MG PO ONE (03:41)
[2020-04-04] MEDS: PANTOPRAZOLE SODIUM TAB 40 MG PO SCH (06:04)
[2020-04-04] MEDS: BIFIDOBACTERIUM INFANTIS 4 MG CAP PO SCH ×2 (08:03→20:18)
[2020-04-04] MEDS: TAMSULOSIN 0.4 MG CAP PO SCH (08:03)
[2020-04-04] MEDS: SODIUM CHLORIDE 0.9% (FLUSH) 10 ML SYG IV SCH ×2 (08:24→20:18)
[2020-04-04] MEDS: NON-FORMULARY MEDICATION 1 EA MIS (Tadalafil [Tadalafil] 5 MG) PO SCH (08:25)
[2020-04-04] MEDS: VANCOMYCIN HCL INJ 1,000 MG, VANCOMYCIN HCL INJ 500 MG in SODIUM CHLORIDE 0.9% 250ML 25... IVPB SCH (10:49)
--- NOTE | 2020-04-04 17:19 | PN ---
SUPERVISING PHYSICIAN: Mir Velasquez M.D. DATE: 04/04/20 SUBJECTIVE: The patient feels good today. Once again feels like the leg may be a little bit better than it was yesterday. OBJECTIVE: VITAL SIGNS: Blood pressure 141/84, heart rate 76, respiratory rate 18, temperature 96.1, oxygen saturation 98%. GENERAL: Mr. David is a 79 year-old male patient who is in no active distress. NEUROLOGIC: The patient is alert. LUNGS: Clear. HEART: Rate is regular. Normal S1 and S2. ABDOMEN: Soft. Positive bowel sounds. GENITOURINARY: Exam is deferred. EXTREMITIES: Lower extremities with no significant edema on the right. The left side still has significant edema, erythema and warmth to the touch. There are some areas that seem to be improving, primarily on the lateral aspect of the left lower extremity towards the bottom there is quite a bit of recession from the marked borders. About one third [address] in the anterior aspect there is some resolution of the erythema as well. ASSESSMENT: 1. Left lower extremity cellulitis. 2. Acute on chronic renal insufficiency. 3. Hypertension. 4. Gastroesophageal reflux disease. PLAN: Continue vancomycin and Cefazolin. I will continue to monitor. If there is significant improvement, consider transferring to p.o. antibiotics and discharge. However, at this point I feel like he is benefitting from IV antibiotics. #[id number] [facility]
[2020-04-04] MEDS: IV SET AND CAP CHANGE INJ INJ SCH (20:18)
[2020-04-04] MEDS: ENOXAPARIN SODIUM 40 MG/0.4 ML SYG SUBCU SCH (20:18)
[2020-04-05] MEDS: ceFAZolin SODIUM 1 GM in SODIUM CHL 0.9% 50ML MIN-BAG+ 50 ML IVPB SCH ×2 (01:00→11:11)
[2020-04-05] MEDS: PANTOPRAZOLE SODIUM TAB 40 MG PO SCH (06:06)
[2020-04-05] MEDS: BIFIDOBACTERIUM INFANTIS 4 MG CAP PO SCH ×2 (10:35→20:48)
[2020-04-05] MEDS: TAMSULOSIN 0.4 MG CAP PO SCH (10:35)
[2020-04-05] MEDS: CEPHALEXIN MONOHYDRATE 500 MG CAP PO SCH ×3 (10:35→22:50)
[2020-04-05] MEDS: SODIUM CHLORIDE 0.9% (FLUSH) 10 ML SYG IV SCH ×2 (10:37→20:48)
[2020-04-05] MEDS: NON-FORMULARY MEDICATION 1 EA MIS (Tadalafil [Tadalafil] 5 MG) PO SCH (10:38)
[2020-04-05] MEDS: VANCOMYCIN HCL INJ 1,000 MG, VANCOMYCIN HCL INJ 500 MG in SODIUM CHLORIDE 0.9% 250ML 25... IVPB SCH (11:11)
[2020-04-05] MEDS ORDERED: CEPHALEXIN MONOHYDRATE 500 MG CAP ONE (19:32)
--- NOTE | 2020-04-05 20:29 | PN ---
SUPERVISING PHYSICIAN: Mir Velasquez M.D. DATE: 04/05/20 SUBJECTIVE: The patient is lying in bed. He wanted to go home today, but due to his left lower extremity cellulitis and no wound culture available, we discussed that we would switch him over to oral antibiotics and make sure that his healing progresses without issue. OBJECTIVE: VITAL SIGNS: Temperature 98.2, heart rate 70, blood pressure 160/92, respiratory rate 18, O2 saturation 96% on room air. RESPIRATORY: Essentially clear to auscultation bilaterally. CARDIAC: Regular rate and rhythm. EXTREMITIES: Left lower extremity is erythematous from the knee down. Swelling is about +1 to 2. There is no drainage or fluctuance noted. It has improved in the last 3 days. LABORATORY: Electrolytes are basically within normal limits. Preliminary blood cultures show no growth after 4 days. All other labs and films have been reviewed via the EMR. ASSESSMENT: 1. Left lower extremity cellulitis. 2. Acute on chronic renal insufficiency. 3. Hypertension. 4. Gastroesophageal reflux disease. PLAN: We will continue present supportive care. I have discontinued his vancomycin and Ancef, and placed him on Keflex and doxycycline. I will monitor his lower extremity tomorrow. I will hold on any labs for now. Will watch him clinically and hopefully he can be discharged home tomorrow on oral antibiotics. #[id number] [facility]
[2020-04-05] MEDS: DOXYCYCLINE HYCLATE CAP 100 MG CAP PO SCH (20:48)
[2020-04-05] MEDS: ENOXAPARIN SODIUM 40 MG/0.4 ML SYG SUBCU SCH (20:48)
[2020-04-06] MEDS: CEPHALEXIN MONOHYDRATE 500 MG CAP PO SCH ×2 (05:00→11:35)
[2020-04-06 05:13] VITALS: TEMP 97.8
[2020-04-06] MEDS: PANTOPRAZOLE SODIUM TAB 40 MG PO SCH (06:01)
[2020-04-06] MEDS: TAMSULOSIN 0.4 MG CAP PO SCH (09:12)
[2020-04-06] MEDS: BIFIDOBACTERIUM INFANTIS 4 MG CAP PO SCH (09:12)
[2020-04-06] MEDS: SODIUM CHLORIDE 0.9% (FLUSH) 10 ML SYG IV SCH (09:12)
[2020-04-06] MEDS: DOXYCYCLINE HYCLATE CAP 100 MG CAP PO SCH (09:13)
[2020-04-06] MEDS: NON-FORMULARY MEDICATION 1 EA MIS (Tadalafil [Tadalafil] 5 MG) PO SCH (09:13)
[2020-04-06 09:36] VITALS: BP 138/78; O2SAT 98
--- NOTE | 2020-04-06 14:13 | DS ---
SUPERVISING PHYSICIAN: Mir Velasquez MD DISCHARGE DIAGNOSIS: 1. Left lower extremity cellulitis. 2. Acute on chronic renal insufficiency. 3. Hypertension. 4. Gastroesophageal reflux disease. HISTORY OF PRESENT ILLNESS: This is a 79-year-old male patient who had a complaint of left lower extremity pain. He came to the Emergency Room 3 times during the week prior to his admission. He was initially seen for generalized weakness and fever with inability to get out of bed. Initially, workup showed some mild kidney injury and he was treated for a possible upper respiratory infection and discharged. He came to the Emergency Room later when he noticed that his left lower leg was reddened and had some swelling with pain. There was concerned for an infection as well as blood clot. He was given some Keflex and discharged home. The following day, he came to the Emergency Room due to increased swelling and afraid he had a blood clot. His initial vital signs were within normal limits. His WBCs were 7,000. He had a left shift on his differential. BUN 28, creatinine 1.32. Baseline creatinine is about 1. Blood cultures were drawn. Chest x-ray showed cardiomegaly and minimal basilar atelectasis. No evidence for pneumonia. His left lower extremity ultrasound showed no DVT identified. He was given vancomycin and placed in observation on the Floor. HOSPITAL COURSE: The patient's vancomycin was continued. His clinical response was also monitored as well as his labs. He was on Lovenox for DVT prophylaxis and proton pump inhibitor for ulcer prophylaxis. His home medications were restarted. His lower extremity was very minimally improved and there was no drainage on the leg, so no cultures of the actual leg was obtained, but his blood cultures were negative. He was then started on Ancef along with vancomycin. Over the next several days, his lower extremity cellulitis improved. The swelling was much less significant. His blood cultures were negative. Today, he has been walking in the halls without problems. I spoke with his primary care physician, Eros Anaya MD, and he will see him in close followup on Friday. He was changed to oral antibiotics yesterday of Keflex and doxycycline. He will be discharged today in stable condition. LABORATORY: WBCs remain stable and today are 6.9. Hemoglobin 11, hematocrit 34.4. Electrolytes are basically within normal limits with the exception of his calcium slightly low at 8.3. C-reactive protein started at 9.3 and is now 4.6. BUN ran between 20 and 21. Creatinine started at 1.32 and is now close to baseline at 1.09. MICROBIOLOGY: Preliminary blood cultures show no growth after 4 days. COVID testing was negative. RADIOLOGY: His chest x-ray and lower extremity ultrasound are per the history of present illness. DISCHARGE PLAN: The patient will be discharged home in stable condition. He is to resume his previous diet and increase his activity as tolerated. In addition to his routine home medications, he will also have Keflex for 10 days and doxycycline for 10 days. His followup appointment with Dr. Anaya is on 04/10/20 at 9:15 AM. His appointment is at [facility]. He is to return to the hospital or followup with Dr. Anaya for any problems or complications. #[id number] [facility]
== END 2020-04-06 12:10 | disposition home or self-care (01) | DRG 603 ==
LOC: ER 10:39 → OBSVTOIN 20:23 → MS 20:23
PROVIDERS: ADMIT Nurse Practitioner Acute Care; ATTEND Nurse Practitioner Acute Care
DX: L03.116 Cellulitis of left lower limb (principal); N17.9 Acute kidney failure, unspecified; N18.9 Chronic kidney disease, unspecified; I12.9 Hypertensive chronic kidney disease with stage 1 through stage 4 chronic kidney disease, or unspecified chronic kidney disease; F41.9 Anxiety disorder, unspecified; K21.9 Gastro-esophageal reflux disease without esophagitis; Z88.5 Allergy status to narcotic agent; Z88.1 Allergy status to other antibiotic agents; Z88.3 Allergy status to other anti-infective agents; Z90.49 Acquired absence of other specified parts of digestive tract; Z79.899 Other long term (current) drug therapy